=== PATIENT | male | born 1970 | race Caucasian/White ===

== ENCOUNTER 2017-04-03 07:18 | Inpatient (IN) ==
--- NOTE | 2017-04-03 12:13 | Pulmonology History & Physical ---
<Benito Jackson - Last Filed: 04/03/17 15:20> Date of Encounter: 04/03/17 Time of Encounter: 12:13 Assessment and Plan (1) Acute respiratory failure Current visit: No Status: Acute Patient presents with acute respiratory failure secondary to CHF exacerbation with pneumonia Currently ventilator dependent with a tracheostomy ER in [place] mentioned that his O2 on arrival was 89% ABG performed at [place] showed pH 7.28, pCO2 85, pO2 390, HCO3 26 Patient received 40 IV Lasix in the ER and was transferred to [facility] ICU Plan: Repeat ABG ordered Continue ventilator support and decreased FiO2 to 50% IV Vancomycin and Cefepime with bronchodilators for now Discharge planning: Patient is a resident at [facility] would like to return when medically stable. Patient is a full code. Consulted social work. Qualifiers: Respiratory failure complication: hypoxia and hypercapnia Qualified Code(s) : J96.01 - Acute respiratory failure with hypoxia; J96.02 - Acute respiratory failure with hypercapnia; J96.02 - Acute respiratory failure with hypercapnia; J96.02 - Acute respiratory failure with hypercapnia (2) Acute systolic (congestive) heart failure Current visit: Yes Status: Acute History of systolic congestive heart failure Patient reports recent echocardiogram at [facility] - requesting records 2+ pitting edema Denies any PND but does have some orthopnea BNP 3494 Chest x-ray demonstrates diffuse pulmonary edema with small left pleural effusion Plan: Head of bed elevated Elevate legs daily Strict I&O's Daily weights Summary home dose of Lasix 40 mg G-tube twice a day Continued Coreg and will add Zestril Allergy to aspirin Pending nephrology consultation we will discontinue Lasix if he can undergo hemodialysis here Fluid restriction - nutrition consulted for G-tube feedings (3) Pneumonia Current visit: Yes Status: Acute Chest x-ray demonstrating diffuse pulmonary edema with small left pleural effusion versus infiltrative process Flu negative Blood cultures sent Respiratory panel sent We will start broad coverage with vancomycin and cefepime for Pseudomonas coverage with patient being on the ventilator, bronchodilators and ventilator support. Qualifiers: Pneumonia type: due to unspecified organism Laterality: left Lung location: lower lobe of lung Qualified Code(s): J18.1 - Lobar pneumonia, unspecified organism (4) End stage renal disease on dialysis Current visit: Yes Status: Acute Patient does have a HD port on his left upper extremity Does not recall his previous etl consultant or his last hemodialysis No current schedule Creatinine bumped up to 2.51 which is above his baseline of roughly 1.5 to 1.7 Potassium 6.3 Plt 23, tranfusing 6 units platelets today Consult to nephrology here for hemodialysis during his admission (5) Acute kidney injury superimposed on chronic kidney disease Current visit: Yes Status: Acute Consult to nephrology for hemodialysis (6) Hyperkalemia Current visit: No Status: Acute Potassium of 6.3 on arrival to [place] today Patient did receive D50, insulin, sodium bicarbonate, calcium chloride, and Kayexalate prior to transfer to the ICU Rechecking CMP now and will determine if more Kayexalate is required (7) Tracheostomy dependence Current visit: Yes Status: Acute Unclear etiology and history of tracheostomy placement roughly 3 months ago History of AML per patient but has now received treatments for quite some time Requested records from [facility] (8) COPD (chronic obstructive pulmonary disease) Current visit: Yes Status: Acute Patient has been ventilator dependent this tracheostomy for the last 3 months Does not appear to be in acute exacerbation Duonebs Adding symbicort Qualifiers: COPD type: unspecified COPD Qualified Code(s): J44.9 - Chronic obstructive pulmonary disease, unspecified (9) T2DM (type 2 diabetes mellitus) Current visit: Yes Status: Acute Long-term use of insulin We will begin low-dose sliding scale 3 times a day and at bedtime for coverage We will adjust accordingly Qualifiers: Diabetes mellitus complication status: with circulatory complication Diabetes mellitus complication detail: with peripheral angiopathy without gangrene Diabetes mellitus fdc insulin use: with terminal press operator use Qualified Code(s): E11.51 - Type 2 diabetes mellitus with diabetic peripheral angiopathy without gangrene; Z79.4 - residential (current) use of insulin; Z79.4 - residential (current) use of insulin; Z79.4 - residential (current) use of insulin ; Z79.4 - residential (current) use of insulin (10) HLD (hyperlipidemia) Current visit: Yes Status: Acute Restart statin therapy Qualifiers: Hyperlipidemia type: unspecified Qualified Code(s): E78.5 - Hyperlipidemia , unspecified (11) HTN (hypertension) Current visit: Yes Status: Acute Blood pressure is 146/84 Currently only on Coreg Adding low-dose Zestril Qualifiers: Hypertension type: unspecified Qualified Code(s): I10 - Essential (primary ) hypertension (12) Anxiety Current visit: Yes Status: Acute Chronic Stable this time Restart home medication (13) AML (acute myeloid leukemia) Current visit: Yes Status: Acute Remote history of AML status post bone marrow transplant with unknown chemotherapy/radiation therapy Obtain records Qualifiers: Leukemia Active/Remission status: in remission Qualified Code(s): C92.01 - Acute myeloblastic leukemia, in remission; C92.61 - Acute myeloid leukemia with [id number] in remission; C92.A1 - Acute myeloid leukemia with multilineage dysplasia, in remission (14) Hypothyroidism Current visit: Yes Status: Acute Restarted on Synthroid Checking TSH, T3, T4 Qualifiers: Hypothyroidism type: acquired Qualified Code(s): E03.9 - Hypothyroidism, unspecified (15) Sacral decubitus ulcer, stage II Current visit: Yes Status: Acute 2x2cm Daily wound care q2 hour turns (16) Pressure ulcer of back Current visit: Yes Status: Acute 3x4 cm Daily wound care Q2 hour turns Qualifiers: Pressure ulcer stage: stage 2 Qualified Code(s): L89.102 - Pressure ulcer of unspecified part of back, stage 2 (17) DVT prophylaxis Current visit: Yes Status: Acute Heparin subcutaneous 5000 units every 8 hours History of Present Illness HPI: Mr. Brian is a very pleasant 46 year old male with past medical history of tracheostomy with ventilator dependence, systolic congestive heart failure, hypertension, hyperlipidemia, COPD, ESRD on hemodialysis, insulin-dependent type 2 diabetes mellitus, AML, anxiety and hypothyroidism who presents to the [facility] care unit as a direct admission from [facility] emergency department. Patient is a senior living resident at [facility] and has been bedbound for roughly 3 years. Unclear etiology of his tracheostomy placement roughly 3 months ago and has been ventilator dependent since then. Emergency department at [place] reports that he was recently discharged from [facility] and was found to be hypoxic at the senior living was brought in for further evaluation. On arrival, vital signs are stable and oxygen on pulse oximetry was 97%. Initial workup demonstrates leukocytosis of 19.1, hemoglobin 8.4, potassium 6.3, creatinine 2.51 and BNP 3494. Troponin 0.06. Initial ABG demonstrates pH 7.28, pCO2 55, pO2 390, HCO3 26. Chest x- ray demonstrates diffuse pulmonary edema with small left pleural effusion versus infiltrative process. This case was discussed with the emergency room physician and patient received D50, insulin, sodium bicarbonate, calcium chloride and Kayexalate and was subsequently transferred to the [facility] intensive care unit for further evaluation and treatment. Patient was admitted via the pulmonary/critical care team for acute respiratory failure secondary to CHF exacerbation and likely pneumonia. On evaluation, patient is in no acute distress, alert and oriented 3 and is hemodynamically stable. Diffuse crackles heard bilaterally with 2+ pitting edema. Patient is able to speak softly regarding his medical history but is unclear about his recent tracheostomy and leukemia history. He states that his breathing has improved but still is short of breath. Patient was on to state that he has been eating by mouth at the senior living but unclear diet. Nutrition will be consulted for G-tube feedings and speech for possible evaluation. We will continue providing ventilator support, initiate IV vancomycin and cefepime along with bronchodilators. Restarting home medications and will consult nephrology for hemodialysis. Records were requested from [facility]. Prior to admission he had pressure ulcers about his right lower back and coccyx. Patient is high risk and we will continue to monitor throughout the day. Past Med Surg Social Fam HX - Past Medical History Medical history: arthritis, CHF, COPD, diabetes, dialysis, hyperlipidemia, hypertension, renal disease, other Psychiatric history: anxiety - Past Surgical History Surgical History: hip replacement, tracheostomy - Social History Smoking Status: Former smoker Smokeless Tobacco Status: No Alcohol use: none Drug use: none - Family History Mother Living Status: Still Living Father Living Status: Still Living Medications and Allergies Acetaminophen [Tylenol 325mg SUPP] 325 mg RC Q6H PRN 04/03/17 [History] Albuterol Neb [Proventil Neb] 2.5 mg IH Q4H PRN 04/03/17 [History] Azithromycin [Zithromax] 250 mg GTUBE MOWEFR 04/03/17 [History] Bisacodyl [Dulcolax] 10 mg RC HS PRN 04/03/17 [History] Calcitriol 0.5 mcg GTUBE FR 04/03/17 [History] Carvedilol [Coreg] 6.25 mg GTUBE BIDWM 04/03/17 [History] DULoxetine [Cymbalta] 20 mg GTUBE DAILY 04/03/17 [History] Dapsone 100 mg GTUBE DAILY 04/03/17 [History] Diphenhydramine HCl [Restfully Sleep] 12.5 mg GTUBE Q6H PRN 04/03/17 [History] Docusate [Colace] 100 mg GTUBE DAILY PRN 04/03/17 [History] Esomeprazole Magnesium [Nexium] 40 mg GTUBE DAILY 04/03/17 [History] Folic Acid/Vit Bcomp,C [Renal-Kenyon Tablet] 0.8 mg GTUBE DAILY 04/03/17 [History] Furosemide [Lasix] 80 mg GTUBE BID 04/03/17 [History] Hydrophilic Wound Dress Paste 1 appl TP BID 04/03/17 [History] Insulin Regular Human [HumuLIN R] 1 - 5 unit SQ TIDAC 04/03/17 [History] LORazepam [Ativan] 0.5 mg PO Q6H PRN 04/03/17 [History] Levothyroxine [Synthroid] 88 mcg GTUBE 0630 04/03/17 [History] Midodrine HCl 10 mg GTUBE TID 04/03/17 [History] Mirtazapine [Remeron] 30 mg GTUBE HS 04/03/17 [History] Ondansetron HCl [Zofran] 4 mg GTUBE Q4H PRN 04/03/17 [History] Oxycodone HCl 15 mg GTUBE Q4H PRN 04/03/17 [History] Polyethylene Glycol [Polyox Wsr-301] 17 gm GTUBE DAILY PRN 04/03/17 [History] Polyvinyl Alcohol [Artificial Tears] 1 drop BOTH EYES Q4H PRN 04/03/17 [History] Posaconazole [Noxafil] 200 mg GTUBE Q8H 04/03/17 [History] PredniSONE [Deltasone] 30 mg GTUBE DAILY 04/03/17 [History] Sennosides [Senna] 17.2 mg GTUBE BID 04/03/17 [History] Sodium Chloride for inhalation [Hyper-Jorge] 4 ml IH Q4H PRN 04/03/17 [History] Zinc Oxide/Petrolatum, Yellow [Critic-Aid Skin Paste] 1 appl TP BID 04/03/17 [ History] valACYclovir [Valtrex] 500 mg GTUBE DAILY 04/03/17 [History] 3 Allergy/AdvReac Type Severity Reaction Status Date / Time Amoxicillin Allergy Hives Verified 03/09/17 14:44 aspirin Allergy Hives Verified 03/09/17 14:44 All Systems: A 10-system review of systems was performed and is negative for pertinent findings except as documented above in the HPI. - Constitutional Constitutional: as per HPI - EENT Eyes: as per HPI - Cardiovascular Cardiovascular: no chest pain - Respiratory Respiratory: dyspnea - Gastrointestinal Gastrointestinal: no abdominal pain - Genitourinary Genitourinary: no dysuria - Musculoskeletal Musculoskeletal: weakness - Endocrine Endocrine: fatigue Physical Examination Vital Signs: Vital Signs, Last 4 Hours Temp Pulse Resp BP Pulse Ox 04/03/17 12:07 99 04/03/17 11:50 84 20 146/84 99 04/03/17 11:38 97.8 F 87 22 148/81 100 04/03/17 11:10 20 92/62 99 General appearance: no acute distress (Tracheostomy present with ventilator support) Eyes: nonicteric ENT: oropharynx dry Neck: supple Effort: normal Inspection: normal Auscultation: bilateral: wheezes, rales Cardiovascular: regular rate and rhythm Gastrointestinal: normoactive bowel sounds, non-distended, other (G-tube present ) Integumentary: decubitus ulcer (2 x 2 centimeter pressure ulcer stage II present in the right lower back as well as a 3 x 4 cm sacral decubitus ulcer stage II) Extremities: no cyanosis, pulses normal, edema (2+ pitting edema), other ( Stasis dermatitis bilaterally) Musculoskeletal: no deformities Gait: other (Has not emulated in 2-3 years) normal mental status, non-focal exam mood appropriate, affect normal Results - Laboratory Findings CBC and BMP: 04/03/17 13:13 04/03/17 13:13 <Jose Julian - Last Filed: 04/03/17 18:23> Date of Encounter: 04/03/17 History of Present Illness HPI: Mr. Brian is a 46 year old male All Systems: A 10-system review of systems was performed and is negative for pertinent findings except as documented above in the HPI. Physical Examination Vital Signs: Vital Signs, Last 4 Hours Temp Pulse Resp BP Pulse Ox 04/03/17 17:35 141/91 04/03/17 17:20 139/89 04/03/17 17:05 151/95 04/03/17 17:00 88 14 154/98 100 04/03/17 16:59 16 138/85 100 04/03/17 16:50 142/87 04/03/17 16:35 97.1 F L 18 144/87 04/03/17 16:00 97.8 F 85 14 124/72 97 04/03/17 15:38 87 04/03/17 15:32 17 147/90 99 04/03/17 15:00 97.8 F 83 14 147/90 100 Results - Laboratory Findings CBC and BMP: 04/03/17 13:13 04/03/17 13:13 ABG ABG pH 7.51 pH Units (7.32-7.45) H 04/03/17 13:05 ABG pCO2 30 mmHg (35-45) L 04/03/17 13:05 ABG pO2 186 mmHg (85-104) H 04/03/17 13:05 ABG O2 Saturation 100 % (95-98) H 04/03/17 13:05 PT/INR, D-dimer PT 11.5 Seconds (9.4-12.1) 04/03/17 13:13 Abnormal lab findings: Abnormal lab results WBC 13.5 K/mcL (4.3-11.1) H 04/03/17 13:13 RBC 2.42 M/mcL (4.19-5.50) L 04/03/17 13:13 Hgb 7.6 g/dL (12.9-16.9) L 04/03/17 13:13 Hct 24.8 % (37.5-50.1) L 04/03/17 13:13 MCV 102.5 fL (83.0-100.0) H 04/03/17 13:13 MCHC 30.6 g/dL (31.6-35.5) L 04/03/17 13:13 RDW 22.8 % (11.5-14.5) H 04/03/17 13:13 Plt Count 23 K/mcL (140-400) L* 04/03/17 13:13 Neutrophils # 11.6 K/mcL (1.6-8.9) H 04/03/17 13:13 Nucleated RBCs/100 WBC 5.3 /100 WBC (0) H 04/03/17 13:13 Immature Plt Fraction 16.2 % (1.1-6.1) H 04/03/17 13:13 ABG pH 7.51 pH Units (7.32-7.45) H 04/03/17 13:05 ABG pCO2 30 mmHg (35-45) L 04/03/17 13:05 ABG pO2 186 mmHg (85-104) H 04/03/17 13:05 ABG O2 Saturation 100 % (95-98) H 04/03/17 13:05 BUN 40 mg/dL (6-20) H 04/03/17 13:13 Creatinine 2.52 mg/dL (0.70-1.30) H 04/03/17 13:13 Est GFR ( Amer) 34 (> 60) L 04/03/17 13:13 Est GFR (Non-Af Amer) 28 (> 60) L 04/03/17 13:13 Glucose 258 mg/dL (70-105) H 04/03/17 13:13 Calculated Osmolality 301 (280-300) H 04/03/17 13:13 Alkaline Phosphatase 268 Units/L (34-104) H 04/03/17 13:13 Serum Total Protein 4.9 g/dL (6.4-8.9) L 04/03/17 13:13 Albumin 2.8 g/dL (3.5-5.7) L 04/03/17 13:13 Globulin 2.1 g/dL (2.4-3.5) L 04/03/17 13:13 - Attending Attestation I examined this patient and my medical decision-making was reviewed with the Resident Physician. I agree with the documented findings, disposition and treatment plan as described except to the extent set forth below. Patient seen and examined. Labs, radiology, chart personally reviewed. Agree with resident's history and physical, assessment, plan with following comments: [employer]: Patient follows commands, however patient is lethargic and this could be multifactorial metabolic versus medication side effects. Patient will have hemodialysis. Pulmonary: Patient has chronic tracheostomy and overall the patient is a poor historian and not clear whether he is on then told that time, however he stated him on spontaneous breathing trial with pressure support, however patient has apnea. Follow-up ABG was done with evidence of respiratory alkalosis and for that reason I have changed his vent setting and vent mode. Patient will be treated with broad-spectrum antibiotics. Cardiovascular: Relatively stable. GI: Nutrition per dietary and GI prophylaxis per routine Heme: DVT prophylaxis per routine. Patient has thrombocytopenia and will plan for transfusion. ID: Continue antibiotics and plan to de-escalation Renal; discussed with nephrology and patient have hemodialysis. Endorcine: blood glucose is monitored Lines: all lines checked and no evidence of infections Skin: skin care to prevent pressure ulcers per nursing routine care. Patient has presented on admission with decubitus. Nursing staff will measure and documented. I spent 40 min of Critical Care time with this patient. It involved decision making of high complexity to assess, manipulate, and support vital organ system failure and/or to prevent further life threatening deterioration of the patient' s condition. The time involved in the performance of separately reportable procedures was not counted toward critical care time.
[2017-04-03] MEDS ORDERED: Naloxone 0.4 MG/ML INJ IVP PRN (12:58)
[2017-04-03] MEDS ORDERED: Acetaminophen 325 MG TABLET PO PRN (12:58)
[2017-04-03 13:10] LABS: ABG Base Excess 1 mEq/L (-2 to 3); ABG HCO3 24 mEq/L (21-27); ABG Oxygen Saturation 100 % (95-98); ABG PCO2 30 mmHg (35-45); ABG PH 7.51 pH Units (7.32-7.45); ABG PO2 186 mmHg (85-104); ABG TCO2 24 mEq/L (20-26); Blood Gas Modality ASSIST CONTROL; Blood Gas PEEP 5 cm H2O; Blood Gas Respiration Rate 20; Blood Gas VT 600 cc
[2017-04-03] MEDS ORDERED: *HR* LORazepam 0.5 MG TABLET GTUBE PRN (13:11)
[2017-04-03] MEDS ORDERED: Bisacodyl 10 MG RECTAL SUPPOSITORY RC PRN (13:11)
[2017-04-03 13:21] LABS: Basophils % 0.1 %; Hematocrit 24.8 % (37.5-50.1); Nucleated Red Blood Cells 5.3 /100 WBC (0)
[2017-04-03 13:22] LABS: Hemoglobin 7.6 g/dL (12.9-16.9); Immature Granulocytes % 3.2 % (0-4); Immature Platelets 16.2 % (1.1-6.1); Lymphocytes # 0.7 K/mcL (0.6-4.6); Lymphocytes % 4.9 %; Mean Corpuscular HGB Conc 30.6 g/dL (31.6-35.5); Mean Corpuscular Hemoglobin 31.4 pg (28.0-33.3); Mean Corpuscular Volume 102.5 fL (83.0-100.0); Monocytes # 0.8 K/mcL (0.0-1.3); Monocytes % 6.2 %; Neutrophils # 11.6 K/mcL (1.6-8.9); Red Blood Count 2.42 M/mcL (4.19-5.50); Red Cell Distribution Width 22.8 % (11.5-14.5); Segmented Neutrophils % 85.6 %
[2017-04-03 13:25] LABS: INR 1.1; Prothrombin Time 11.5 Seconds (9.4-12.1)
[2017-04-03 13:29] LABS: Platelet Count 23 K/mcL (140-400)
[2017-04-03] MEDS ORDERED: Dextrose Gel 15 GM/37.5 ML TUBE PO PRN ×2 (13:39)
[2017-04-03] MEDS ORDERED: *HR* Dextrose 50 % in Water (Syg) 50 ML SYRINGE IVP PRN (13:39)
[2017-04-03] MEDS ORDERED: D5% in Water 1,000 ML IVC PRN (13:39)
[2017-04-03] MEDS ORDERED: Vancomycin 1,500 MG in D5% in Water 250 ML IVPB SCH ×2 (14:00)
[2017-04-03 14:13] LABS: Albumin 2.8 g/dL (3.5-5.7); Albumin/Globulin Ratio 1.3 (1.1-2.2); Bilirubin,Total 0.8 mg/dL (0.3-1.0); Calcium 8.8 mg/dL (8.6-10.3); Globulin 2.1 g/dL (2.4-3.5); Magnesium 1.7 mg/dL (1.6-2.6); Phosphorous 3.4 mg/dL (2.7-4.5); Total Protein 4.9 g/dL (6.4-8.9)
[2017-04-03] MEDS ORDERED: *HR* Heparin 10,000 UNIT/10 ML VIAL IV PRN ×2 (14:18→14:46)
[2017-04-03] MEDS ORDERED: 0.9 % Sodium Chloride 250 ML IVC PRN ×2 (14:18→14:46)
[2017-04-03] MEDS ORDERED: 0.9 % Sodium Chloride 1,000 ML PRIME SCH ×2 (14:30→15:00)
[2017-04-03] MEDS: Budesonide/Formoterol 160/4.5 MDI IH SCH ×2 (14:31→22:37)
[2017-04-03] MEDS: Ipratropium/Albuterol Neb 3 ML IH SCH ×3 (14:32→22:36)
[2017-04-03 15:08] LABS: Hemoglobin A1C 5.3 %
[2017-04-03] MEDS: Insulin LISPRO 300 UNITS/3 ML VIAL SQ SCH (15:19)
[2017-04-03] MEDS ORDERED: 0.9 % Sodium Chloride 1,000 ML ONE (16:08)
[2017-04-03 16:19] LABS: Hepatitis B Surface Antigen Nonreactive (Nonreactive)
[2017-04-03] MEDS ORDERED: Cefepime HCl 2,000 MG in D5% in Water (Mini-Bag+) 100 ML IVPB SCH (18:00)
[2017-04-03 19:17] LABS: Thyroid Stimulating Hormone 1.531 mcIU/mL (0.340-5.600)
[2017-04-03 19:19] LABS: Triiodothyronine (T3) Free 1.5 pg/mL (2.50-3.90)
[2017-04-03] MEDS: Furosemide 40 MG TABLET PO SCH (20:15)
[2017-04-03] MEDS: Chlorhexidine Rinse 15 ML MOUTHWASH MM SCH (20:16)
[2017-04-03] MEDS: Cefepime HCl 2,000 MG in Water for inj. (sterile) 20 ML 20 ML IVP SCH (20:16)
[2017-04-03] MEDS: *HR* Heparin 5,000 UNIT/ML VIAL SQ SCH ×2 (20:17→21:43)
[2017-04-03] MEDS: *HR* OxyCODONE Immed Rel 15 MG TABLET GTUBE PRN (20:22)
[2017-04-03] MEDS: Renal Vitamin 1 MG CAPSULE PO SCH (20:32)
[2017-04-03] MEDS: Pantoprazole 40 MG VIAL IVP SCH (20:32)
[2017-04-03] MEDS ORDERED: Mirtazapine 15 MG TABLET GTUBE SCH (21:00)
[2017-04-03] MEDS ORDERED: Insulin LISPRO 300 UNITS/3 ML VIAL SQ SCH (21:00)
[2017-04-03] MEDS ORDERED: 0.9 % Sodium Chloride 250 ML ONE (21:18)
[2017-04-04] MEDS: *HR* OxyCODONE Immed Rel 15 MG TABLET GTUBE PRN ×6 (00:40→20:32)
[2017-04-04 02:21] LABS: Hepatitis B Surface Antibody 26.47 mIU/mL
[2017-04-04] MEDS: Ipratropium/Albuterol Neb 3 ML IH SCH ×4 (03:37→22:29)
[2017-04-04 04:09] LABS: Hematocrit 21.6 % (37.5-50.1); Hemoglobin 6.7 g/dL (12.9-16.9); Segmented Neutrophils % 73.9 %
[2017-04-04 04:11] LABS: Basophils % 0.2 %; Eosinophils % 0.3 %; Immature Granulocytes % 2.4 % (0-4); Immature Platelets 10.3 % (1.1-6.1); Lymphocytes # 1.2 K/mcL (0.6-4.6); Lymphocytes % 11.7 %; Mean Corpuscular Hemoglobin 32.4 pg (28.0-33.3); Mean Corpuscular Volume 104.3 fL (83.0-100.0); Mean Platelet Volume 11.2 fL (9.4-12.4); Monocytes # 1.2 K/mcL (0.0-1.3); Monocytes % 11.5 %; Neutrophils # 7.8 K/mcL (1.6-8.9); Nucleated Red Blood Cells 4.7 /100 WBC (0); Red Blood Count 2.07 M/mcL (4.19-5.50); Red Cell Distribution Width 22.9 % (11.5-14.5)
[2017-04-04 04:21] LABS: Platelet Count 40 K/mcL (140-400)
[2017-04-04 04:50] LABS: Calcium 8.1 mg/dL (8.6-10.3); Potassium 3.6 mEq/L (3.5-5.1)
[2017-04-04 04:55] LABS: Hypochromasia Present (Not Present); Macrocytosis Present (Not Present)
[2017-04-04 04:56] LABS: Platelet Estimate Decreased (Normal); Polychromasia 1+ (Not Present)
[2017-04-04 04:57] LABS: Acanthocytes 1+ (Not Present); Anisocytosis 2+ (Not Present); Spherocytes 1+ (Not Present); Target Cells 1+ (Not Present)
[2017-04-04 04:58] LABS: Microcytosis Present (Not Present)
[2017-04-04 05:19] LABS: Adenovirus Not Detected (Not Detect); Bordetella Pertussis Not Detected (Not Detect); Chlamydophila pneumoniae Not Detected (Not Detect); Coronavirus 229E Not Detected (Not Detect); Coronavirus HKU1 Not Detected (Not Detect); Coronavirus NL63 Not Detected (Not Detect); Coronavirus OC43 Not Detected (Not Detect); Human Metapneumovirus Not Detected (Not Detect); Human Rhinovirus/Enterovirus ***DETECTED*** (Not Detect); Influenza A Subtype 2009 H1 Not Detected (Not Detect); Influenza A Untypeable Not Detected (Not Detect); Influenza B Not Detected (Not Detect); Mycoplasma pneumoniae Not Detected (Not Detect); Parainfluenza Virus 1 Not Detected (Not Detect); Parainfluenza Virus 2 Not Detected (Not Detect); Parainfluenza Virus 3 Not Detected (Not Detect); Parainfluenza Virus 4 Not Detected (Not Detect); Respiratory Syncytial Virus Not Detected (Not Detect)
[2017-04-04] MEDS: Cefepime HCl 2,000 MG in Water for inj. (sterile) 20 ML 20 ML IVP SCH (05:29)
[2017-04-04] MEDS: *HR* Heparin 5,000 UNIT/ML VIAL SQ SCH (05:30)
--- NOTE | 2017-04-04 06:46 | Pulmonology Progress Note ---
<Benito Jackson - Last Filed: 04/04/17 11:26> Date of Encounter: 04/04/17 Time of Encounter: 09:35 Assessment and Plan (1) Acute respiratory failure Current Visit: No Status: Acute Patient presents with acute respiratory failure secondary to CHF exacerbation with pneumonia Currently ventilator dependent with a tracheostomy ER in [place] mentioned that his O2 on arrival was 89% ABG performed at [place] showed pH 7.28, pCO2 85, pO2 390, HCO3 26 ABG on arrival pH 7.51, pCO2 30, pO2 186, HCO3 24 Patient received 40 IV Lasix in the ER and was transferred to [facility] ICU Plan: Repeat ABG ordered this morning Continue ventilator support D/c IV Vancomycin for renal protection Continue Cefepime with bronchodilators for now Discharge planning: Patient is a resident at [facility] would like to return when medically stable. Patient is a full code. Consulted social work. Transfer order placed today for 2N bed pending availability Qualifiers: Respiratory failure complication: hypoxia and hypercapnia Qualified Code(s) : J96.01 - Acute respiratory failure with hypoxia; J96.02 - Acute respiratory failure with hypercapnia; J96.02 - Acute respiratory failure with hypercapnia; J96.02 - Acute respiratory failure with hypercapnia (2) Acute systolic (congestive) heart failure Current Visit: Yes Status: Acute History of systolic congestive heart failure Patient reports recent echocardiogram at [facility] - requesting records 2+ pitting edema Denies any PND but does have some orthopnea BNP [id number] Chest x-ray demonstrates diffuse pulmonary edema with small left pleural effusion Plan: Head of bed elevated Elevate legs daily Strict I&O's Daily weights Summary home dose of Lasix 40 mg G-tube twice a day Continued Coreg and will add Zestril Allergy to aspirin Underwent HD yesterday Fluid restriction (3) Pneumonia Current Visit: Yes Status: Acute Chest x-ray demonstrating diffuse pulmonary edema with small left pleural effusion versus infiltrative process Flu negative Blood cultures sent Respiratory panel positive for rhinovirus We will start broad coverage cefepime only for Pseudomonas coverage with patient being on the ventilator, bronchodilators and ventilator support. 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 Up to 40 today Nephro following for hemodialysis D/c rimmao (5) Acute kidney injury superimposed on chronic kidney disease Current Visit: Yes Status: Acute Consult to nephrology for hemodialysis Patient had HD yesterday Creatinine trending down from 2.52-1.66 (6) Hyperkalemia Current Visit: No Status: Acute Potassium of 6.3 on arrival to [place] today Patient did receive D50, insulin, sodium bicarbonate, calcium chloride, and Kayexalate prior to transfer to the ICU Patient underwent hemodialysis yesterday Potassium down to 3.6 (7) Tracheostomy dependence Current Visit: Yes Status: Acute Unclear etiology and history of tracheostomy placement roughly 3 months ago History of AML per patient but has now received treatments for quite some time Requested records from [facility] (8) COPD (chronic obstructive pulmonary disease) Current Visit: Yes Status: Acute Patient has been ventilator dependent this tracheostomy for the last 3 months Does not appear to be in acute exacerbation [facility] Qualifiers: COPD type: unspecified COPD Qualified Code(s): J44.9 - Chronic obstructive pulmonary disease, unspecified (9) T2DM (type 2 diabetes mellitus) Current Visit: Yes Status: Acute Long-term use of insulin Blood sugars improving We will continue low-dose sliding scale 3 times a day and at bedtime for coverage We will adjust accordingly Qualifiers: Diabetes mellitus complication status: with circulatory complication Diabetes mellitus complication detail: with peripheral angiopathy without gangrene Diabetes mellitus long-term insulin use: with joint terminal attack controller use Qualified Code(s): E11.51 - Type 2 diabetes mellitus with diabetic peripheral angiopathy without gangrene; Z79.4 - truck terminal manager (current) use of insulin; Z79.4 - alf (current) use of insulin; Z79.4 - truck terminal manager (current) use of insulin ; Z79.4 - alf (current) use of insulin (10) HLD (hyperlipidemia) Current Visit: Yes Status: Acute Restart statin therapy Qualifiers: Hyperlipidemia type: unspecified Qualified Code(s): E78.5 - Hyperlipidemia , unspecified (11) HTN (hypertension) Current Visit: Yes Status: Acute Blood pressure is 146/84 Currently only on Coreg Adding low-dose Zestril Qualifiers: Hypertension type: unspecified Qualified Code(s): I10 - Essential (primary ) hypertension (12) Anxiety Current Visit: Yes Status: Acute Chronic Stable this time Restart home medication (13) AML (acute myeloid leukemia) Current Visit: Yes Status: Acute Remote history of AML status post bone marrow transplant with unknown chemotherapy/radiation therapy Obtain records Hemoglobin trending down to 6.7 but is at baseline. We will continue to trend. Qualifiers: Leukemia Active/Remission status: in remission Qualified Code(s): C92.01 - Acute myeloblastic leukemia, in remission; C92.61 - Acute myeloid leukemia with [id number] in remission; C92.A1 - Acute myeloid leukemia with multilineage dysplasia, in remission (14) Hypothyroidism Current Visit: Yes Status: Acute Restarted on Synthroid Checking TSH, T3, T4 Qualifiers: Hypothyroidism type: acquired Qualified Code(s): E03.9 - Hypothyroidism, unspecified (15) Sacral decubitus ulcer, stage II Current Visit: Yes Status: Acute 2x2cm Daily wound care q2 hour turns (16) Pressure ulcer of back Current Visit: Yes Status: Acute 3x4 cm Daily wound care Q2 hour turns Qualifiers: Pressure ulcer stage: stage 2 Qualified Code(s): L89.102 - Pressure ulcer of unspecified part of back, stage 2 (17) DVT prophylaxis Current Visit: Yes Status: Acute EPCDs Subjective Interval history: Patient is admitted for acute respiratory failure secondary to CHF exacerbation with pneumonia Patient is resting comfortable this morning He reports that his shortness of breath is significant improved since yesterday No overnight events per nursing Speech cleared patient for diet on evaluation this morning He denies any chest pain, palpitations, abdominal pain, GI issues or tracheostomy issues. Objective PUL Vital signs: Last Vital Signs Temp 97.2 F L 04/04/17 05:14 Pulse 110 04/04/17 06:00 Resp 24 04/04/17 06:00 BP 124/59 04/04/17 06:00 Pulse Ox 100 04/04/17 06:00 General appearance: no acute distress Eyes: nonicteric ENT: oropharynx moist Neck: supple Auscultation: bilateral: wheezes, rales Cardiovascular: regular rate and rhythm Gastrointestinal: normoactive bowel sounds, non-distended, other (G-tube present and intact) Integumentary: decubitus ulcer (2 x 2 centimeter pressure ulcer stage II present in the right lower back as well as a 3 x 4 cm sacral decubitus ulcer stage II) Extremities: no cyanosis, edema (2+ pitting), other (Stasis dermatitis bilaterally) Musculoskeletal: no deformities Gait: other (Has not ambulated in 2-3 years) normal mental status, non-focal exam mood appropriate, affect normal Ventilator Settings Ventilator Settings: Ventilator Settings, Last 8 Hours Ventilator Mode VC+ Ventilator Mode VC+ Ventilator Mode VC+ Ventilator Mode VC+ Ventilator Mode VC+ Ventilator Mode VC+ Ventilator Mode VC+ Ventilator Mode VC+ Ventilator Mode VC+ Ventilator Mode VC+ Ventilator Tidal Volume 550 Setting Ventilator Tidal Volume 550 Setting Ventilator Tidal Volume 550 Setting Ventilator Tidal Volume 550 Setting Ventilator Tidal Volume 550 Setting Ventilator Tidal Volume 550 Setting Ventilator Tidal Volume 550 Setting Ventilator Tidal Volume 550 Setting Ventilator Tidal Volume 550 Setting Ventilator Tidal Volume 550 Setting Ventilator Respiratory Rate 14 Setting Ventilator Respiratory Rate 14 Setting Ventilator Respiratory Rate 14 Setting Ventilator Respiratory Rate 14 Setting Ventilator Respiratory Rate 14 Setting Ventilator Respiratory Rate 14 Setting Ventilator Respiratory Rate 14 Setting Ventilator Respiratory Rate 14 Setting Ventilator Respiratory Rate 14 Setting Ventilator Respiratory Rate 14 Setting Actual Respiratory Rate 24 Actual Respiratory Rate 21 Actual Respiratory Rate 18 Actual Respiratory Rate 17 Actual Respiratory Rate 17 Actual Respiratory Rate 19 Actual Respiratory Rate 17 Actual Respiratory Rate 20 Actual Respiratory Rate 21 Actual Respiratory Rate 21 Positive End Expiratory 5 Pressure Positive End Expiratory 5 Pressure Positive End Expiratory 5 Pressure Positive End Expiratory 5 Pressure Positive End Expiratory 5 Pressure Positive End Expiratory 5 Pressure Positive End Expiratory 5 Pressure Positive End Expiratory 5 Pressure Positive End Expiratory 5 Pressure Positive End Expiratory 5 Pressure Peak Inspiratory Airway 27 Pressure Peak Inspiratory Airway 28 Pressure Peak Inspiratory Airway 32 Pressure Peak Inspiratory Airway 33 Pressure Peak Inspiratory Airway 33 Pressure Peak Inspiratory Airway 32 Pressure Peak Inspiratory Airway 34 Pressure Peak Inspiratory Airway 32 Pressure Peak Inspiratory Airway 29 Pressure Peak Inspiratory Airway 28 Pressure Results - Laboratory Findings CBC and BMP: 04/04/17 04:02 04/04/17 04:02 ABG ABG pH 7.51 pH Units (7.32-7.45) H 04/03/17 13:05 ABG pCO2 30 mmHg (35-45) L 04/03/17 13:05 ABG pO2 186 mmHg (85-104) H 04/03/17 13:05 ABG O2 Saturation 100 % (95-98) H 04/03/17 13:05 PT/INR, D-dimer PT 11.5 Seconds (9.4-12.1) 04/03/17 13:13 Abnormal lab findings: Abnormal lab results RBC 2.07 M/mcL (4.19-5.50) L 04/04/17 04:02 Hgb 6.7 g/dL (12.9-16.9) L 04/04/17 04:02 Hct 21.6 % (37.5-50.1) L 04/04/17 04:02 MCV 104.3 fL (83.0-100.0) H 04/04/17 04:02 MCHC 31.0 g/dL (31.6-35.5) L 04/04/17 04:02 RDW 22.9 % (11.5-14.5) H 04/04/17 04:02 Plt Count 40 K/mcL (140-400) L D 04/04/17 04:02 Nucleated RBCs/100 WBC 4.7 /100 WBC (0) H 04/04/17 04:02 Platelet Estimate Decreased (Normal) L 04/04/17 04:02 Immature Plt Fraction 10.3 % (1.1-6.1) H 04/04/17 04:02 Polychromasia 1+ (Not Present) A 04/04/17 04:02 Hypochromasia Present (Not Present) A 04/04/17 04:02 Anisocytosis 2+ (Not Present) A 04/04/17 04:02 Microcytosis Present (Not Present) A 04/04/17 04:02 Macrocytosis Present (Not Present) A 04/04/17 04:02 Spherocytes 1+ (Not Present) A 04/04/17 04:02 Target Cells 1+ (Not Present) A 04/04/17 04:02 Acanthocytes (Spur) 1+ (Not Present) A 04/04/17 04:02 ABG pH 7.51 pH Units (7.32-7.45) H 04/03/17 13:05 ABG pCO2 30 mmHg (35-45) L 04/03/17 13:05 ABG pO2 186 mmHg (85-104) H 04/03/17 13:05 ABG O2 Saturation 100 % (95-98) H 04/03/17 13:05 BUN 26 mg/dL (6-20) H 04/04/17 04:02 Creatinine 1.66 mg/dL (0.70-1.30) H 04/04/17 04:02 Est GFR ( Amer) 54 (> 60) L 04/04/17 04:02 Est GFR (Non-Af Amer) 45 (> 60) L 04/04/17 04:02 Glucose 110 mg/dL (70-105) H 04/04/17 04:02 POC Glucose 131 (58-89) H 04/03/17 19:38 Calcium 8.1 mg/dL (8.6-10.3) L 04/04/17 04:02 Alkaline Phosphatase 268 Units/L (34-104) H 04/03/17 13:13 Serum Total Protein 4.9 g/dL (6.4-8.9) L 04/03/17 13:13 Albumin 2.8 g/dL (3.5-5.7) L 04/03/17 13:13 Globulin 2.1 g/dL (2.4-3.5) L 04/03/17 13:13 Free T3 1.50 pg/mL (2.50-3.90) L 04/03/17 13:13 Entero/Rhino (PCR) DETECTED (Not Detect) A 04/04/17 04:02 - Clinical Findings Intake & Output: Intake & Output 04/03/17 04/03/17 04/04/17 15:59 23:59 07:59 Intake Total 0 / 0 1174 / 1174 191 / 191 Output Total 3050 / 3050 150 / 150 Balance 0 / 0 -1876 / -1876 41 / 41 Weight 106.594 kg 103.918 kg Consult Discharge Plan - Plan Referrals: Eduard Chapin MD [Primary Care Provider] - <Jose Julian - Last Filed: 04/04/17 15:18> Date of Encounter: 04/04/17 Objective PUL Vital signs: Last Vital Signs Temp 98.7 F 04/04/17 14:18 Pulse 97 04/04/17 14:18 Resp 14 04/04/17 14:18 BP 130/84 04/04/17 14:18 Pulse Ox 100 04/04/17 14:18 Ventilator Settings Ventilator Settings: Ventilator Settings, Last 8 Hours Ventilator Mode VC+ Ventilator Mode VC+ Ventilator Mode VC+ Ventilator Mode VC+ Ventilator Mode VC+ Ventilator Mode VC+ Ventilator Mode VC+ Ventilator Mode VC+ Ventilator Tidal Volume 550 Setting Ventilator Tidal Volume 550 Setting Ventilator Tidal Volume 550 Setting Ventilator Tidal Volume 550 Setting Ventilator Tidal Volume 550 Setting Ventilator Tidal Volume 550 Setting Ventilator Tidal Volume 550 Setting Ventilator Tidal Volume 550 Setting Ventilator Respiratory Rate 14 Setting Ventilator Respiratory Rate 14 Setting Ventilator Respiratory Rate 14 Setting Ventilator Respiratory Rate 14 Setting Ventilator Respiratory Rate 14 Setting Ventilator Respiratory Rate 14 Setting Ventilator Respiratory Rate 14 Setting Ventilator Respiratory Rate 14 Setting Actual Respiratory Rate 19 Actual Respiratory Rate 18 Actual Respiratory Rate 20 Actual Respiratory Rate 20 Actual Respiratory Rate 22 Actual Respiratory Rate 25 Actual Respiratory Rate 22 Positive End Expiratory 5 Pressure Positive End Expiratory 5 Pressure Positive End Expiratory 5 Pressure Positive End Expiratory 5 Pressure Positive End Expiratory 5 Pressure Positive End Expiratory 5 Pressure Positive End Expiratory 5 Pressure Positive End Expiratory 5 Pressure Peak Inspiratory Airway 30 Pressure Peak Inspiratory Airway 33 Pressure Peak Inspiratory Airway 28 Pressure Peak Inspiratory Airway 32 Pressure Peak Inspiratory Airway 32 Pressure Peak Inspiratory Airway 31 Pressure Peak Inspiratory Airway 30 Pressure Results - Laboratory Findings CBC and BMP: 04/04/17 04:02 04/04/17 04:02 ABG ABG pH 7.40 pH Units (7.32-7.45) 04/04/17 10:40 ABG pCO2 52 mmHg (35-45) H 04/04/17 10:40 ABG pO2 87 mmHg (85-104) 04/04/17 10:40 ABG O2 Saturation 96 % (95-98) 04/04/17 10:40 PT/INR, D-dimer PT 11.5 Seconds (9.4-12.1) 04/03/17 13:13 Abnormal lab findings: Abnormal lab results RBC 2.07 M/mcL (4.19-5.50) L 04/04/17 04:02 Hgb 6.7 g/dL (12.9-16.9) L 04/04/17 04:02 Hct 21.6 % (37.5-50.1) L 04/04/17 04:02 MCV 104.3 fL (83.0-100.0) H 04/04/17 04:02 MCHC 31.0 g/dL (31.6-35.5) L 04/04/17 04:02 RDW 22.9 % (11.5-14.5) H 04/04/17 04:02 Plt Count 40 K/mcL (140-400) L D 04/04/17 04:02 Nucleated RBCs/100 WBC 4.7 /100 WBC (0) H 04/04/17 04:02 Platelet Estimate Decreased (Normal) L 04/04/17 04:02 Immature Plt Fraction 10.3 % (1.1-6.1) H 04/04/17 04:02 Polychromasia 1+ (Not Present) A 04/04/17 04:02 Hypochromasia Present (Not Present) A 04/04/17 04:02 Anisocytosis 2+ (Not Present) A 04/04/17 04:02 Microcytosis Present (Not Present) A 04/04/17 04:02 Macrocytosis Present (Not Present) A 04/04/17 04:02 Spherocytes 1+ (Not Present) A 04/04/17 04:02 Target Cells 1+ (Not Present) A 04/04/17 04:02 Acanthocytes (Spur) 1+ (Not Present) A 04/04/17 04:02 ABG pCO2 52 mmHg (35-45) H 04/04/17 10:40 ABG HCO3 32 mEq/L (21-27) H 04/04/17 10:40 ABG Total CO2 33 mEq/L (20-26) H 04/04/17 10:40 ABG Base Excess 6 mEq/L (-2 to 3) H 04/04/17 10:40 BUN 26 mg/dL (6-20) H 04/04/17 04:02 Creatinine 1.66 mg/dL (0.70-1.30) H 04/04/17 04:02 Est GFR ( Amer) 54 (> 60) L 04/04/17 04:02 Est GFR (Non-Af Amer) 45 (> 60) L 04/04/17 04:02 Glucose 110 mg/dL (70-105) H 04/04/17 04:02 POC Glucose 131 (58-89) H 04/03/17 19:38 Calcium 8.1 mg/dL (8.6-10.3) L 04/04/17 04:02 Alkaline Phosphatase 268 Units/L (34-104) H 04/03/17 13:13 Serum Total Protein 4.9 g/dL (6.4-8.9) L 04/03/17 13:13 Albumin 2.8 g/dL (3.5-5.7) L 04/03/17 13:13 Globulin 2.1 g/dL (2.4-3.5) L 04/03/17 13:13 Free T3 1.50 pg/mL (2.50-3.90) L 04/03/17 13:13 Entero/Rhino (PCR) DETECTED (Not Detect) A 04/04/17 04:02 - Microbiology Findings Microbiology Findings: Microbiology, Last 48 Hours 04/04/17 14:00 Sputum Culture - Preliminary Sputum - Clinical Findings Intake & Output: Intake & Output 04/03/17 04/04/17 04/04/17 23:59 07:59 15:59 Intake Total 1174 / 1174 191 / 191 120 / 120 Output Total 3050 / 3050 150 / 150 50 / 50 Balance -1876 / -1876 41 / 41 70 / 70 Weight 103.918 kg 112.151 kg - Attending Attestation I examined this patient and my medical decision-making was reviewed with the Resident Physician. I agree with the documented findings, disposition and treatment plan as described except to the extent set forth below. Patient seen and examined. Labs, radiology, chart personally reviewed. Agree with resident's history and physical, assessment, plan with following comments: BOX TURNER: Patient follows commands, Pulmonary: Acceptable oxygenation and ventilation and continue vent support Cardiovascular: stable GI: Nutrition per dietary and GI prophylaxis per routine patient had speech evaluation and is able to swallow Heme: DVT prophylaxis per routine. The patient has poor prognosis and remain full code. Monitor his platelet and hemoglobin level. ID: Continue antibiotics and plan to de-escalation Renal; nephrology is following Endorcine: blood glucose is monitored Lines: all lines checked and no evidence of infections Skin: skin care to prevent pressure ulcers per nursing routine care Patient has been transferred to [facility]
--- NOTE | 2017-04-04 07:31 | Event Note ---
Date of Encounter: 04/04/17 Time of Encounter: 07:29 [facility] I found this patient on my census list. Per report this is not a patient of [facility]. Please change the consult order and notify the correct , outside nephrology group. ELLIOT
[2017-04-04] MEDS: Renal Vitamin 1 MG CAPSULE PO SCH (08:49)
[2017-04-04] MEDS: Furosemide 40 MG TABLET PO SCH ×2 (08:49→16:13)
[2017-04-04] MEDS: Insulin LISPRO 300 UNITS/3 ML VIAL SQ SCH ×4 (08:50→20:34)
[2017-04-04] MEDS: Pantoprazole 40 MG VIAL IVP SCH (08:50)
[2017-04-04] MEDS: Chlorhexidine Rinse 15 ML MOUTHWASH MM SCH ×2 (09:12→20:28)
[2017-04-04 10:43] LABS: ABG Base Excess 6 mEq/L (-2 to 3); ABG HCO3 32 mEq/L (21-27); ABG Oxygen Saturation 96 % (95-98); ABG PCO2 52 mmHg (35-45); ABG PO2 87 mmHg (85-104); ABG TCO2 33 mEq/L (20-26); Blood Gas Modality VC; Blood Gas PEEP 5 cm H2O; Blood Gas Respiration Rate 14; Blood Gas VT 550 cc
--- NOTE | 2017-04-04 10:51 | Nephrology Consult Note ---
Date of Encounter: 04/04/17 Time of Encounter: 09:40 Assessment and Plan (1) End stage renal disease on dialysis Current Visit: Yes Status: Acute TOVA in setting chronic resp failure and CHF. Thought to possibly regain renal fct. Would discontinue Vanco for other coverage. HD yesterday. No HD today. Will evaluate tomorrow for HD as needed. History of Present Illness - Reason for Consult Acute Kidney Injury, end stage renal disease - History of Present Illness Mr. Brian is a 46 year old male with a history of TOVA requiring chronic HD that dialyzes at [place] on TTS schedule. Other PMH-arthritis, CHF, COPD, diabetes, dialysis, hyperlipidemia, hypertension, renal disease, anxiety, hip replacement, tracheostomy. He is trach/vent dependent following lengthy hospital stay. It was thought that he may recover his renal fct. while obtaining HD at [place]. He has been inpatient at [facility] for one month just prior to hia presenting to [facility] for respiratory failure secondary to CHF and pneumonia. He states has only been receiving HD sporadically, as needed. He is on Vanco and Cefepime coverage. His K+ 6.0 yesterday, he rec'd Kaexylate and HD was done Today K+ 3.6. Past Med Surg Social Fam HX - Past Medical History Medical history: arthritis, CHF, COPD, diabetes, dialysis, hyperlipidemia, hypertension, renal disease, other Psychiatric history: anxiety - Past Surgical History Surgical History: hip replacement, tracheostomy - Social History Smoking Status: Former smoker Smokeless Tobacco Status: No Alcohol use: none Drug use: none - Family History Mother Living Status: Still Living Father Living Status: Still Living Medications and Allergies Acetaminophen [Tylenol 325mg SUPP] 325 mg RC Q6H PRN 04/03/17 [History] Albuterol Neb [Proventil Neb] 2.5 mg IH Q4H PRN 04/03/17 [History] Azithromycin [Zithromax] 250 mg GTUBE MOWEFR 04/03/17 [History] Bisacodyl [Dulcolax] 10 mg RC HS PRN 04/03/17 [History] Calcitriol 0.5 mcg GTUBE FR 04/03/17 [History] Carvedilol [Coreg] 6.25 mg GTUBE BIDWM 04/03/17 [History] DULoxetine [Cymbalta] 20 mg GTUBE DAILY 04/03/17 [History] Dapsone 100 mg GTUBE DAILY 04/03/17 [History] Diphenhydramine HCl [Restfully Sleep] 12.5 mg GTUBE Q6H PRN 04/03/17 [History] Docusate [Colace] 100 mg GTUBE DAILY PRN 04/03/17 [History] Esomeprazole Magnesium [Nexium] 40 mg GTUBE DAILY 04/03/17 [History] Folic Acid/Vit Bcomp,C [Renal-Kenyon Tablet] 0.8 mg GTUBE DAILY 04/03/17 [History] Furosemide [Lasix] 80 mg GTUBE BID 04/03/17 [History] Hydrophilic Wound Dress Paste 1 appl TP BID 04/03/17 [History] Insulin Regular Human [HumuLIN R] 1 - 5 unit SQ TIDAC 04/03/17 [History] LORazepam [Ativan] 0.5 mg PO Q6H PRN 04/03/17 [History] Levothyroxine [Synthroid] 88 mcg GTUBE 0630 04/03/17 [History] Midodrine HCl 10 mg GTUBE TID 04/03/17 [History] Mirtazapine [Remeron] 30 mg GTUBE HS 04/03/17 [History] Ondansetron HCl [Zofran] 4 mg GTUBE Q4H PRN 04/03/17 [History] Oxycodone HCl 15 mg GTUBE Q4H PRN 04/03/17 [History] Polyethylene Glycol [Polyox Wsr-301] 17 gm GTUBE DAILY PRN 04/03/17 [History] Polyvinyl Alcohol [Artificial Tears] 1 drop BOTH EYES Q4H PRN 04/03/17 [History] Posaconazole [Noxafil] 200 mg GTUBE Q8H 04/03/17 [History] PredniSONE [Deltasone] 30 mg GTUBE DAILY 04/03/17 [History] Sennosides [Senna] 17.2 mg GTUBE BID 04/03/17 [History] Sodium Chloride for inhalation [Hyper-Jorge] 4 ml IH Q4H PRN 04/03/17 [History] Zinc Oxide/Petrolatum, Yellow [Critic-Aid Skin Paste] 1 appl TP BID 04/03/17 [ History] valACYclovir [Valtrex] 500 mg GTUBE DAILY 04/03/17 [History] 3 Allergy/AdvReac Type Severity Reaction Status Date / Time Amoxicillin Allergy Hives Verified 03/09/17 14:44 aspirin Allergy Hives Verified 03/09/17 14:44 Review of Systems All Systems: reviewed and no additional remarkable complaints except as stated Exam - Vital Signs Vital signs: Initial Vital Signs Resp BP Pulse Ox 20 92/62 99 04/03/17 11:10 04/03/17 11:10 04/03/17 11:10 Vital Signs - Last 8 Hours Temp Pulse Resp BP Pulse Ox 04/04/17 08:18 98.5 F 04/04/17 07:17 16 119/68 98 04/04/17 06:00 110 24 124/59 100 04/04/17 05:14 97.2 F L 04/04/17 05:00 107 21 136/74 98 04/04/17 04:05 90 04/04/17 04:00 89 18 122/69 98 04/04/17 03:37 17 119/66 96 04/04/17 03:00 79 19 117/66 96 Intake and Output 04/03/17 04/04/17 04/04/17 23:59 07:59 15:59 Intake Total 1174 / 1174 191 / 191 120 / 120 Output Total 3050 / 3050 150 / 150 50 / 50 Balance -1876 / -1876 41 / 41 70 / 70 Intake: IV Fluids 270 / 270 Maxipime 2,000 MG In Water for 20 / 20 inj. (sterile) 20 ML @ 300 mls/ hr IVP Q12HR DARNELL Rx#:[id number] Vancocin 1,500 MG In Dextrose 5 250 / 250 % 250 ML @ 166.67 mls/hr IVPB Q24H DARNE[facility] Rx#:[id number] Oral 0 / 0 120 / 120 Tube Feeding 116 / 116 191 / 191 Blood Product 188 / 188 Platelet Pheresis Lp Irr 3rd 188 / 188 Unit [id number] Intake, Rinseback and Flushes 600 / 600 Free Water Intake Amount 0 / 0 0 / 0 0 / 0 Output: Urine 0 / 0 Total Dialysis (HD) Output 2600 / 2600 Catheter 450 / 450 150 / 150 50 / 50 Other: Weight 103.918 kg Blood Glucose* 131 145 Hemodialysis Net Fluid Removed 2000 (mL) Patient Weight 04/04/17 23:59 Weight 103.918 kg - General Appearance General appearance: well-developed, well-nourished, appears started age, obese EENT: mucous membranes moist Neck: no JVD Additional Comments: harsh Cardiology: edema, regular rate, regular rhythm Additional Comments: 2+ pittingLE and dependent buttock and hips. Gastrointestinal: normoactive bowel sounds, no tenderness Integumentary: warm and dry Neurologic: alert and oriented x3 Psychiatric: mood/affect appropriate, cooperative Results - Lab Results 04/04/17 04:02 04/04/17 04:02 Most recent lab results ABG pH 7.51 pH Units (7.32-7.45) H 04/03/17 13:05 ABG pCO2 30 mmHg (35-45) L 04/03/17 13:05 ABG pO2 186 mmHg (85-104) H 04/03/17 13:05 ABG HCO3 24 mEq/L (21-27) 04/03/17 13:05 ABG O2 Saturation 100 % (95-98) H 04/03/17 13:05 Calcium 8.1 mg/dL (8.6-10.3) L 04/04/17 04:02 Phosphorus 3.4 mg/dL (2.7-4.5) 04/03/17 13:13 Magnesium 1.7 mg/dL (1.6-2.6) 04/03/17 13:13 Consult Discharge Plan - Plan Referrals: Eduard Chapin MD [Primary Care Provider] -
[2017-04-04] MEDS: Budesonide/Formoterol 160/4.5 MDI IH SCH ×2 (11:16→22:29)
[2017-04-04] MEDS ORDERED: D5% in Water 1,000 ML IVC PRN (14:14)
[2017-04-04] MEDS ORDERED: *HR* Heparin 10,000 UNIT/10 ML VIAL IV PRN ×2 (14:14)
[2017-04-04] MEDS ORDERED: *HR* Dextrose 50 % in Water (Syg) 50 ML SYRINGE IVP PRN (14:14)
[2017-04-04] MEDS ORDERED: Dextrose Gel 15 GM/37.5 ML TUBE PO PRN ×2 (14:14)
[2017-04-04] MEDS ORDERED: 0.9 % Sodium Chloride 250 ML IVC PRN (14:14)
[2017-04-04] MEDS ORDERED: Bisacodyl 10 MG RECTAL SUPPOSITORY RC PRN (14:14)
[2017-04-04] MEDS ORDERED: 0.9 % Sodium Chloride 1,000 ML PRIME SCH (14:14)
[2017-04-04] MEDS ORDERED: Naloxone 0.4 MG/ML INJ IVP PRN (14:14)
[2017-04-04] MEDS: Cefepime HCl 1,000 MG in Water for inj. (sterile) 10 ML IVP SCH (16:12)
[2017-04-04] MEDS ORDERED: Cefepime HCl 1,000 MG in Water for inj. (sterile) 10 ML IVP SCH (18:00)
[2017-04-04] MEDS: Mirtazapine 15 MG TABLET GTUBE SCH (20:27)
[2017-04-05] MEDS: *HR* OxyCODONE Immed Rel 15 MG TABLET GTUBE PRN ×3 (03:58→17:45)
[2017-04-05] MEDS: Ipratropium/Albuterol Neb 3 ML IH SCH ×4 (04:24→22:53)
[2017-04-05] MEDS: Cefepime HCl 1,000 MG in Water for inj. (sterile) 10 ML IVP SCH ×2 (05:38→17:44)
[2017-04-05] MEDS: Furosemide 40 MG TABLET PO SCH ×2 (08:07→17:45)
[2017-04-05] MEDS: Chlorhexidine Rinse 15 ML MOUTHWASH MM SCH ×2 (08:07→21:47)
[2017-04-05] MEDS: Renal Vitamin 1 MG CAPSULE PO SCH (08:07)
[2017-04-05] MEDS: Insulin LISPRO 300 UNITS/3 ML VIAL SQ SCH ×4 (08:07→21:47)
[2017-04-05] MEDS: Pantoprazole 40 MG VIAL IVP SCH (08:07)
[2017-04-05 08:28] LABS: Red Blood Count 2.39 M/mcL (4.19-5.50)
[2017-04-05] MEDS ORDERED: Aminoglycoside Consult 1 EACH MC ONE (08:28)
[2017-04-05 08:30] LABS: Hematocrit 25.7 % (37.5-50.1); Hemoglobin 7.6 g/dL (12.9-16.9); Immature Platelets 13.8 % (1.1-6.1); Mean Corpuscular HGB Conc 29.6 g/dL (31.6-35.5); Mean Corpuscular Hemoglobin 31.8 pg (28.0-33.3); Mean Corpuscular Volume 107.5 fL (83.0-100.0); Red Cell Distribution Width 23.1 % (11.5-14.5)
[2017-04-05 08:42] LABS: Potassium 4.1 mEq/L (3.5-5.1)
[2017-04-05 08:50] LABS: Platelet Count 25 K/mcL (140-400)
[2017-04-05] MEDS ORDERED: Vancomycin 1 EACH in EMPTY BAG 1 EACH IVPB SCH (09:00)
[2017-04-05] MEDS: Budesonide/Formoterol 160/4.5 MDI IH SCH ×2 (09:58→22:53)
--- NOTE | 2017-04-05 10:14 | Nephrology Progress Note ---
Date of Encounter: 04/05/17 Time of Encounter: 10:06 - Assessment and Plan (1) Acute kidney injury Current Visit: Yes Status: Acute 1. TOVA. appears that he had ATN couple of months ago probably related to infection. Previous hospital records are not available. Recently noted to have some recovery of renal function and has been receiving dialysis intermittently. Patient is currently nonoliguric, creatinine has trended up from 1.6-2.6. Serum potassium and bicarbonate are stable. There is no acute indication for dialysis. Continue to monitor urine output and renal function. Continue by mouth Lasix 40 mg twice a day. Discontinue lisinopril while waiting for renal recovery 2. Essential hypertension. Increase carvedilol to 12.5 mg twice a day. DC lisinopril 3. Chronic anemia thrombocytopenia. His elevated RDW and MCV. Check iron studies B12 and folate 4. Bone metabolism. Check phosphate, calcium, PTH and vitamin D levels Subjective Principal diagnosis: esrd Interval history: 46-year-old male with chronic respiratory failure, has tracheostomy and ventilator dependent. He is a half-way resident,essentially bedridden for the last 3 years. Has h/o COPD,hypertension, hyperlipidemia. He was admitted with hypoxia, thought to be secondary to pneumonia and pulmonary edema. Lab significant for white count of 19.1, potassium 6.3, platelet count 23. Chest x- ray diffuse pulmonary edema and small left pleural effusion/infiltrate. Received platelets. He was dialyzed on 04/03. Being treated for healthcare associated pneumonia. Patient was transferred to [facility] yesterday. He is awake, denies chest pain or shortness of breath. Appears that he had acute renal failure about 2 months ago Was receiving intermittent dialysis as outpatient. Unsure of manager transfusion name. Stable overnight. Urine output 475 mL yesterday. 320 last night. Maza bag has about 400 mL this morning Objective - Vital Signs Vital signs: Vital Signs Temp Pulse Resp BP Pulse Ox 04/05/17 08:03 18 100 04/05/17 08:00 106 04/05/17 07:16 98.3 F 105 16 135/77 04/05/17 04:24 20 150/70 100 04/05/17 04:01 98.2 F 106 17 150/70 04/05/17 00:26 98.4 F 93 18 164/82 04/04/17 22:30 17 139/90 100 04/04/17 20:19 22 139/90 100 04/04/17 19:41 98.3 F 99 17 139/90 100 04/04/17 16:06 25 141/85 99 04/04/17 15:55 98 F 91 18 141/85 91 04/04/17 14:18 98.7 F 97 14 130/84 100 04/04/17 13:00 96 19 109/68 100 04/04/17 12:52 98.2 F 04/04/17 11:16 20 124/76 95 04/04/17 11:00 101 20 124/76 100 Intake and Output 04/04/17 04/05/17 04/05/17 23:59 07:59 15:59 Intake Total 300 / 300 0 / 0 480 / 480 Output Total 275 / 275 370 / 370 30 / 30 Balance 25 / -370 / -370 450 / 450 Intake: IV Fluids Maxipime 1,000 MG In Water for inj. (sterile) 10 ML @ 150 mls/ hr IVP Q12HR [facility] Rx#:[id number] Oral 290 / 290 0 / 0 480 / 480 Free Water Intake Amount 0 / 0 Output: Gastric Tube Lavage Amount 50 / 50 30 / 30 Left Upper Quadrant 50 / 50 30 / 30 Catheter 275 / 275 320 / 320 Other: Meal Breakfast Percent of Meal Consumed 100% Weight 122.3 kg Blood Glucose* 142 140 Patient Weight 04/05/17 23:59 Weight 122.3 kg - General Appearance Exam: CVS; s1s2 present, regular RESP; good air entry, minimal left basilar crackles ABD; soft, NT, BS present. PEG tube present EXT; 2+ edema. Skin ; chronic venous stasis changes present in the lower extremities MUSIC THERAPY SPECIALIST; alert. oriented x 3. CN grossly intact - Lab 04/05/17 08:00 04/05/17 08:00 Most recent lab results ABG pH 7.40 pH Units (7.32-7.45) 04/04/17 10:40 ABG pCO2 52 mmHg (35-45) H 04/04/17 10:40 ABG pO2 87 mmHg (85-104) 04/04/17 10:40 ABG HCO3 32 mEq/L (21-27) H 04/04/17 10:40 ABG O2 Saturation 96 % (95-98) 04/04/17 10:40 Calcium 8.0 mg/dL (8.6-10.3) L 04/05/17 08:00 Phosphorus 3.4 mg/dL (2.7-4.5) 04/03/17 13:13 Magnesium 1.7 mg/dL (1.6-2.6) 04/03/17 13:13 - VTE Documentation of Mechanical Device: Venous foot pump, device Consult Discharge Plan - Plan Referrals: Eduard Chapin MD [Primary Care Provider] -
--- NOTE | 2017-04-05 12:55 | Internal Med Progress Note ---
Date of Encounter: 04/05/17 Time of Encounter: 12:50 - Subjective Interval history: He was admitted with them increasing shortness of breath. He has a tracheostomy. - Constitutional Vitals: Temp Pulse Resp BP Pulse Ox 98.5 F 105 16 98/57 100 04/05/17 11:23 04/05/17 11:45 04/05/17 11:23 04/05/17 11:23 04/05/17 09:58 Internal Medicine: Result - Labs CBC & Chem 7: 04/05/17 08:00 04/05/17 08:00 Labs: Short CBC 04/05/17 Range/Units 08:00 WBC 10.3 (4.3-11.1) K/mcL Hgb 7.6 L (12.9-16.9) g/dL Hct 25.7 L (37.5-50.1) % Plt Count 25 L* (140-400) K/mcL BMP 04/05/17 08:00 Sodium 136 Potassium 4.1 Chloride 100 Carbon Dioxide 27 BUN 39 H Creatinine 2.61 H Glucose 138 H Calcium 8.0 L - ABG Interpretation ABG results: ABG ABG pH 7.40 pH Units (7.32-7.45) 04/04/17 10:40 ABG pCO2 52 mmHg (35-45) H 04/04/17 10:40 ABG pO2 87 mmHg (85-104) 04/04/17 10:40 ABG O2 Saturation 96 % (95-98) 04/04/17 10:40 PT/INR, D-dimer PT 11.5 Seconds (9.4-12.1) 04/03/17 13:13 - VTE Documentation of Mechanical Device: Venous foot pump, device Consult Discharge Plan - Plan Referrals: Eduard Chapin MD [Primary Care Provider] -
--- NOTE | 2017-04-05 13:29 | Internal Med Progress Note ---
Date of Encounter: 04/05/17 Time of Encounter: 12:50 - Assessment and plan (1) Acute respiratory failure Current Visit: No Status: Acute Assessment and plan: Segmented with acute respiratory failure but is not known patient with tracheostomy. Acute respiratory failure was felt secondary to decompensated congestive heart failure with suspected pneumonia. He was initially treated with ventilator in ICU. He also received IV Lasix. He is empirically treated with IV vancomycin and cefepime for suspected pneumonia. His hematuria hemoptysis has improved. He has been transferred to stepdown. His breathing is improving. Pulmonary following. Qualifiers: Respiratory failure complication: hypoxia and hypercapnia Qualified Code(s) : J96.01 - Acute respiratory failure with hypoxia; J96.02 - Acute respiratory failure with hypercapnia; J96.02 - Acute respiratory failure with hypercapnia; J96.02 - Acute respiratory failure with hypercapnia (2) Acute on chronic systolic (congestive) heart failure Current Visit: Yes Status: Acute Assessment and plan: Has a history of chronic systolic heart failure. Initial chest x-ray has evidence of pulmonary edema and pleural effusion.. He has 2+ edema. Has been treated with IV Lasix. Shortness of breath improving. Continue diuretics and monitor renal panel. (3) End stage renal disease on dialysis Current Visit: Yes Status: Acute Assessment and plan: He has been on hemodialysis. Nephrology following regarding hemodialysis. He has evidence of hypervolemia with 3 to overload. (4) Tracheostomy dependence Current Visit: Yes Status: Acute (5) Pneumonia Current Visit: Yes Status: Acute Assessment and plan: Initial chest x-ray revealed bilateral infiltrate with suspicion of pneumonia. He is on empiric antibiotic. Depending on further improvement/sputum culture determine whether he had definite pneumonia.. Qualifiers: Pneumonia type: due to unspecified organism Laterality: left Lung location: lower lobe of lung Qualified Code(s): J18.1 - Lobar pneumonia, unspecified organism (6) Other secondary thrombocytopenia Current Visit: Yes Status: Acute Assessment and plan: He has thrombocytopenia platelet, was 23 at platelet transfusion on and increased to 40 again back to 25 but he does not have any acute bleeding continue to monitor. He had a AML - Time Spent With Patient Greater than 35 minutes - Subjective Interval history: He was admitted with them bleeding from his tracheostomy and shortness of breath and he was admitted with acute respiratory failure. He is being treated for acute on chronic systolic heart failure and pneumonia. He was admitted to ICU [facility] His shortness of breath is better. No more bleeding through the tracheostomy tube. He is end-stage renal disease on hemodialysis. He denies any chest pain or shortness of breath at rest. Bleeding from the tracheostomy is improved. He has chronic leg edema with chronic skin changes. He is not confused. Stated that he is feeling better. - Constitutional Vitals: Temp Pulse Resp BP Pulse Ox 98.5 F 105 16 98/57 100 04/05/17 11:23 04/05/17 11:45 04/05/17 11:23 04/05/17 11:23 04/05/17 09:58 Exam: Chronically ill-looking male in no respiratory distress. He has tracheostomy. Has pallor no cyanosis or jaundice. CVS S1-S2 regular. Could not appreciate any murmur. Respiratory system decreased air entry bilaterally with bilateral rhonchi. Abdomen soft nontender. No hepatomegaly. Extremities has bilateral leg edema. Has skin lesions up to knee with unknown etiology. 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 Internal Medicine: Result - Labs CBC & Chem 7: 04/05/17 08:00 04/05/17 08:00 Labs: Short CBC 04/05/17 Range/Units 08:00 WBC 10.3 (4.3-11.1) K/mcL Hgb 7.6 L (12.9-16.9) g/dL Hct 25.7 L (37.5-50.1) % Plt Count 25 L* (140-400) K/mcL BMP 04/05/17 08:00 Sodium 136 Potassium 4.1 Chloride 100 Carbon Dioxide 27 BUN 39 H Creatinine 2.61 H Glucose 138 H Calcium 8.0 L - ABG Interpretation ABG results: ABG ABG pH 7.40 pH Units (7.32-7.45) 04/04/17 10:40 ABG pCO2 52 mmHg (35-45) H 04/04/17 10:40 ABG pO2 87 mmHg (85-104) 04/04/17 10:40 ABG O2 Saturation 96 % (95-98) 04/04/17 10:40 PT/INR, D-dimer PT 11.5 Seconds (9.4-12.1) 04/03/17 13:13 - VTE Documentation of Mechanical Device: Venous foot pump, device Consult Discharge Plan - Plan Referrals: Eduard Chapin MD [Primary Care Provider] -
[2017-04-05 14:35] LABS: Bilirubin,Urine Negative (Negative); Blood,Urine Moderate (Negative); Clarity,Urine Cloudy (Clear); Color,Urine Yellow (Yellow); Glucose,Urine (UA) 100 mg/dL (Normal); Ketones,Urine Negative (Negative); Leukocyte Esterase,Urine Small (Negative); Nitrite,Urine Negative (Negative); PH,Urine 6.5 pH Units (5.0-8.0); Protein,Urine >=300 mg/dL (Neg-Trace); Specific Gravity,Urine 1.012 (1.010-1.025); Urobilinogen,Urine Normal (Normal)
[2017-04-05 14:37] LABS: Bacteria,Urine Few per hpf (None-Few); Hyaline Casts,Urine Few per lpf (None-Few); Squamous Epithelial Cell,Urine Moderate per lpf (None-Few); WBC,Urine TNTC per hpf (0-3)
[2017-04-05] MEDS: Mirtazapine 15 MG TABLET GTUBE SCH (19:36)
[2017-04-06] MEDS: *HR* OxyCODONE Immed Rel 15 MG TABLET GTUBE PRN ×2 (03:35→07:49)
[2017-04-06] MEDS: Ipratropium/Albuterol Neb 3 ML IH SCH ×4 (04:44→21:46)
[2017-04-06 05:11] LABS: % Iron Saturation 11 % (20-55); Albumin 2.5 g/dL (3.5-5.7); BUN/Creatinine Ratio 14 (6-26); Blood Urea Nitrogen 46 mg/dL (6-20); Calcium 7.6 mg/dL (8.6-10.3); Carbon Dioxide 23 mEq/L (23-29); Chloride 101 mEq/L (98-107); Ferritin > 1350 ng/ml (20-250); Glucose 151 mg/dL (70-105); Iron 17 mcg/dL (65-175); Osmolality,Calculated 305 (280-300); Phosphorous 4.3 mg/dL (2.7-4.5); Potassium 3.9 mEq/L (3.5-5.1); Sodium 140 mEq/L (136-145); Transferrin 107 mg/dL (203-362); eGFR For African Americans 25 (> 60); eGFR For Non-African Americans 20 (> 60)
[2017-04-06] MEDS: Cefepime HCl 1,000 MG in Water for inj. (sterile) 10 ML IVP SCH ×2 (06:15→18:02)
[2017-04-06] MEDS: Insulin LISPRO 300 UNITS/3 ML VIAL SQ SCH ×4 (07:48→22:29)
[2017-04-06] MEDS: Chlorhexidine Rinse 15 ML MOUTHWASH MM SCH ×2 (07:49→19:34)
[2017-04-06] MEDS: Renal Vitamin 1 MG CAPSULE PO SCH (07:49)
[2017-04-06] MEDS: Furosemide 40 MG TABLET PO SCH (07:49)
[2017-04-06] MEDS: Pantoprazole 40 MG VIAL IVP SCH (07:49)
--- NOTE | 2017-04-06 09:44 | Nephrology Progress Note ---
Date of Encounter: 04/06/17 Time of Encounter: 10:10 - Assessment and Plan (1) Acute kidney injury Current Visit: Yes Status: Acute 1. TOVA. Possible ATN couple of months on intermittent hemodialysis. Patient nonoliguric, serum cr trended up from 2.6-3.2 suggesting some degree of renal recovery Decrease Lasix to once a day 2. Essential HTN. Has sinus tachycardia, BP borderline low. Decrease carvedilol to 6.25 mg twice a day. 3. Chronic anemia, thrombocytopenia. Iron sat 11 %, ferritin greater than 1350 , B12 311, folate pending further management as per primary service 4. Bone metabolism. PTH level 98. Vitamin D pending. Calcium corrected to albumin is normal 5. Pyuria. follow-up urine C&S 6. rpt cxr Subjective Principal diagnosis: esrd Interval history: 46-year-old male with chronic respiratory failure, has tracheostomy and ventilator dependent. He is a prison resident, h/o COPD,hypertension, hyperlipidemia. He was admitted with hypoxia, thought to be secondary to pneumonia and pulmonary edema. Chest x-ray diffuse pulmonary edema, small left pleural effusion/infiltrate. Received platelets. He was dialyzed on 04/03. Has TOVA, on intermittent HD as outpatient for the last couple of months Stable overnight. C/O minimal discomfort at the trach site. Heart rate in 100, SBP around 100. Intake 525, urine output 1610 Objective - Vital Signs Vital signs: Vital Signs Temp Pulse Resp BP Pulse Ox 04/06/17 07:48 116 04/06/17 07:37 98.9 F 113 18 100/61 96 04/06/17 04:44 21 98/53 96 04/06/17 04:00 99.2 F 96 18 98/53 97 04/05/17 23:02 98.9 F 100 16 101/58 97 04/05/17 22:54 20 100 04/05/17 20:36 18 100/60 96 04/05/17 19:44 98.4 F 101 16 100/60 98 04/05/17 16:15 98.6 F 103 16 104/56 100 04/05/17 16:09 15 104/56 100 04/05/17 15:40 97 04/05/17 11:45 105 04/05/17 11:23 98.5 F 103 16 98/57 04/05/17 09:58 20 135/77 100 Intake and Output 04/05/17 04/06/17 04/06/17 23:59 07:59 15:59 Intake Total 35 / 35 180 / 180 Output Total 490 / 490 135 / 135 Balance -455 / -455 45 / 45 Intake: IV Fluids Maxipime 1,000 MG In Water for inj. (sterile) 10 ML @ 150 mls/ hr IVP Q12HR [facility] Rx#:[id number] Oral 25 / 25 Free Water Intake Amount 180 / 180 Output: Gastric Tube Lavage Amount 50 / 50 Left Upper Quadrant 50 / 50 Catheter 440 / 440 135 / 135 Urethral (Maza) 220 / 220 135 / 135 Other: Weight 114 kg Blood Glucose* 188 170 Patient Weight 04/06/17 23:59 Weight 114 kg - General Appearance Exam: CVS; s1s2 present, regular RESP; good air entry, clear anteriorly. PermCath in the left chest ABD; soft, NT, BS present, PEG tube EXT; e 1+ jennifer, chronic venous stasis changes in the lower extremities [employer]; alert. oriented x 3. CN grossly intact - Lab 04/05/17 08:00 04/06/17 03:30 Most recent lab results ABG pH 7.40 pH Units (7.32-7.45) 04/04/17 10:40 ABG pCO2 52 mmHg (35-45) H 04/04/17 10:40 ABG pO2 87 mmHg (85-104) 04/04/17 10:40 ABG HCO3 32 mEq/L (21-27) H 04/04/17 10:40 ABG O2 Saturation 96 % (95-98) 04/04/17 10:40 Calcium 7.6 mg/dL (8.6-10.3) L 04/06/17 03:30 Phosphorus 4.3 mg/dL (2.7-4.5) 04/06/17 03:30 Magnesium 1.7 mg/dL (1.6-2.6) 04/03/17 13:13 - VTE Documentation of Mechanical Device: Venous foot pump, device Consult Discharge Plan - Plan Referrals: Eduard Chapin MD [Primary Care Provider] -
[2017-04-06] MEDS: Budesonide/Formoterol 160/4.5 MDI IH SCH ×2 (09:47→21:46)
--- NOTE | 2017-04-06 14:25 | Internal Med Progress Note ---
Date of Encounter: 04/06/17 Time of Encounter: 14:22 - Assessment and plan (1) Anemia in chronic renal disease Current Visit: Yes Status: Acute Assessment and plan: Check H&H today. Transfuse to maintain hemoglobin above 8.0. Qualifiers: Chronic kidney disease stage: on chronic dialysis Qualified Code(s): N18.6 - End stage renal disease; D63.1 - Anemia in chronic kidney disease; D63.1 - Anemia in chronic kidney disease; Z99.2 - Dependence on renal dialysis; Z99.2 - Dependence on renal dialysis; Z99.2 - Dependence on renal dialysis; Z99.2 - Dependence on renal dialysis (2) Acute respiratory failure Current Visit: No Status: Acute Assessment and plan: Continue with vent support via tracheostomy. Respiratory status improved. Continue with cefepime empirically for pneumonia. Follow-up with pulmonary service. Qualifiers: Respiratory failure complication: hypoxia and hypercapnia Qualified Code(s) : J96.01 - Acute respiratory failure with hypoxia; J96.02 - Acute respiratory failure with hypercapnia; J96.02 - Acute respiratory failure with hypercapnia; J96.02 - Acute respiratory failure with hypercapnia (3) End stage renal disease on dialysis Current Visit: Yes Status: Acute Assessment and plan: Intermittent hemodialysis per nephrology. Avoid nephrotoxins due to possible recovery of kidney function per nephrology. Continue with Lasix. (4) Tracheostomy dependence Current Visit: Yes Status: Acute (5) COPD (chronic obstructive pulmonary disease) Current Visit: Yes Status: Acute Assessment and plan: Inhaled albuterol and ipratropium. Qualifiers: COPD type: unspecified COPD Qualified Code(s): J44.9 - Chronic obstructive pulmonary disease, unspecified (6) T2DM (type 2 diabetes mellitus) Current Visit: Yes Status: Acute Assessment and plan: Insulin sliding scale. Diabetic diet. Qualifiers: Diabetes mellitus complication status: with circulatory complication Diabetes mellitus complication detail: with peripheral angiopathy without gangrene Diabetes mellitus termite exterminator insulin use: with half-way use Qualified Code(s): E11.51 - Type 2 diabetes mellitus with diabetic peripheral angiopathy without gangrene; Z79.4 - exterminator (current) use of insulin; Z79.4 - exterminator (current) use of insulin; Z79.4 - exterminator (current) use of insulin ; Z79.4 - exterminator (current) use of insulin (7) Pneumonia Current Visit: Yes Status: Acute Assessment and plan: Continue cefepime. Follow-up sputum culture. Qualifiers: Pneumonia type: due to unspecified organism Laterality: left Lung location: lower lobe of lung Qualified Code(s): J18.1 - Lobar pneumonia, unspecified organism (8) Acute on chronic systolic (congestive) heart failure Current Visit: Yes Status: Acute Assessment and plan: Has a history of chronic systolic heart failure. Initial chest x-ray has evidence of pulmonary edema and pleural effusion.. He has 2+ edema. No echocardiogram on record. We will obtain echocardiogram. Continue with Lasix. Daily weights. Strict I/O. (9) Other secondary thrombocytopenia Current Visit: Yes Status: Acute Assessment and plan: He has thrombocytopenia platelet, was 23 at platelet transfusion on and increased to 40 again back to 25 but he does not have any acute bleeding continue to monitor. He had a AML. (10) Acute bronchitis due to Rhinovirus Current Visit: Yes Status: Acute Assessment and plan: Supportive care. - Constitutional Vitals: Temp Pulse Resp BP Pulse Ox 98.3 F 105 14 94/58 95 04/06/17 11:54 04/06/17 12:41 04/06/17 11:54 04/06/17 11:54 04/06/17 11:54 Internal Medicine: Result - Labs CBC & Chem 7: 04/05/17 08:00 04/06/17 03:30 Labs: BMP 04/06/17 03:30 Sodium 140 Potassium 3.9 Chloride 101 Carbon Dioxide 23 BUN 46 H Creatinine 3.28 H Glucose 151 H Calcium 7.6 L Liver Function 04/06/17 Range/Units 03:30 Albumin 2.5 L (3.5-5.7) g/dL Urine 04/05/17 Range/Units 14:20 Urine Color Yellow (Yellow) Urine Clarity Cloudy A (Clear) Urine pH 6.5 (5.0-8.0) pH Units Ur Specific [place] 1.012 (1.010-1.025) Urine Protein >=300 H (Neg-Trace) mg/dL Urine Glucose (UA) 100 H (Normal) mg/dL - ABG Interpretation ABG results: ABG ABG pH 7.40 pH Units (7.32-7.45) 04/04/17 10:40 ABG pCO2 52 mmHg (35-45) H 04/04/17 10:40 ABG pO2 87 mmHg (85-104) 04/04/17 10:40 ABG O2 Saturation 96 % (95-98) 04/04/17 10:40 PT/INR, D-dimer PT 11.5 Seconds (9.4-12.1) 04/03/17 13:13 - VTE Documentation of Mechanical Device: Venous foot pump, device Consult Discharge Plan - Plan Referrals: Eduard Chapin MD [Primary Care Provider] -
[2017-04-06 15:16] LABS: Hematocrit 23.1 % (37.5-50.1); Hemoglobin 6.9 g/dL (12.9-16.9); Mean Corpuscular HGB Conc 29.9 g/dL (31.6-35.5); Nucleated Red Blood Cells 1.5 /100 WBC (0)
[2017-04-06 15:18] LABS: Basophils % 0.2 %; Eosinophils # 0.1 K/mcL (0.0-0.6); Eosinophils % 0.9 %; Immature Granulocytes % 2.1 % (0-4); Immature Platelets 16.5 % (1.1-6.1); Lymphocytes # 0.8 K/mcL (0.6-4.6); Mean Corpuscular Hemoglobin 31.9 pg (28.0-33.3); Mean Corpuscular Volume 106.9 fL (83.0-100.0); Monocytes # 1.1 K/mcL (0.0-1.3); Monocytes % 10.8 %; Red Blood Count 2.16 M/mcL (4.19-5.50); Red Cell Distribution Width 22.4 % (11.5-14.5)
[2017-04-06 15:23] LABS: Platelet Count 17 K/mcL (140-400)
[2017-04-06] MEDS ORDERED: Furosemide 40 MG/4 ML VIAL IVP ONE (15:28)
[2017-04-06] MEDS: Mirtazapine 15 MG TABLET GTUBE SCH (19:30)
[2017-04-07] MEDS: *HR* OxyCODONE Immed Rel 15 MG TABLET GTUBE PRN (01:34)
[2017-04-07] MEDS: Ipratropium/Albuterol Neb 3 ML IH SCH ×4 (04:37→21:59)
[2017-04-07 05:02] LABS: Basophils % 0.2 %; Eosinophils % 0.9 %
[2017-04-07 05:04] LABS: Eosinophils # 0.1 K/mcL (0.0-0.6); Hematocrit 23.4 % (37.5-50.1); Hemoglobin 7.3 g/dL (12.9-16.9); Immature Granulocytes % 1.6 % (0-4); Immature Platelets 5.3 % (1.1-6.1); Lymphocytes # 1.1 K/mcL (0.6-4.6); Lymphocytes % 10.9 %; Mean Corpuscular HGB Conc 31.2 g/dL (31.6-35.5); Mean Corpuscular Hemoglobin 31.7 pg (28.0-33.3); Mean Corpuscular Volume 101.7 fL (83.0-100.0); Mean Platelet Volume 10.4 fL (9.4-12.4); Monocytes # 1.2 K/mcL (0.0-1.3); Monocytes % 12.4 %; Nucleated Red Blood Cells 1.3 /100 WBC (0); Red Cell Distribution Width 23.1 % (11.5-14.5)
[2017-04-07 05:11] LABS: Neutrophils # 7.3 K/mcL (1.6-8.9); Platelet Count 89 K/mcL (140-400)
[2017-04-07] MEDS: Cefepime HCl 1,000 MG in Water for inj. (sterile) 10 ML IVP SCH ×2 (05:14→17:21)
[2017-04-07 05:28] LABS: Albumin 2.8 g/dL (3.5-5.7); Calcium 8.2 mg/dL (8.6-10.3); Phosphorous 5.1 mg/dL (2.7-4.5); Potassium 4.1 mEq/L (3.5-5.1)
[2017-04-07 05:46] LABS: Anisocytosis 3+ (Not Present); Polychromasia 1+ (Not Present)
[2017-04-07 05:48] LABS: Platelet Estimate Slight Decrease (Normal)
[2017-04-07] MEDS: Budesonide/Formoterol 160/4.5 MDI IH SCH ×2 (08:50→21:59)
[2017-04-07] MEDS: Insulin LISPRO 300 UNITS/3 ML VIAL SQ SCH ×4 (08:58→21:56)
[2017-04-07] MEDS: Renal Vitamin 1 MG CAPSULE PO SCH (08:58)
[2017-04-07] MEDS: Chlorhexidine Rinse 15 ML MOUTHWASH MM SCH ×2 (08:59→21:56)
[2017-04-07] MEDS: Pantoprazole 40 MG VIAL IVP SCH (08:59)
[2017-04-07] MEDS ORDERED: Furosemide 40 MG TABLET PO SCH (09:00)
--- NOTE | 2017-04-07 09:49 | Nephrology Progress Note ---
Date of Encounter: 04/07/17 Time of Encounter: 09:20 - Assessment and Plan (1) End stage renal disease on dialysis Current Visit: Yes Status: Acute TOVA in setting chronic resp failure and CHF. Thought to possibly regain renal fct. Creat worse 3.77, increasing dependent edema, tachypneic. Will do HD today. Orders given. Subjective Principal diagnosis: esrd Interval history: Alert, not as talkative. Somewhat tachypneic. Increased LE/buttock edema. Documented urine output 730 cc. Objective - Vital Signs Vital signs: Vital Signs Temp Pulse Resp BP Pulse Ox 04/07/17 08:52 20 123/66 97 04/07/17 07:44 99.3 F 147 20 123/66 97 04/07/17 04:38 14 94 04/07/17 03:45 98.8 F 105 16 117/67 96 04/07/17 01:30 98.8 F 105 16 97/56 96 04/07/17 01:15 98.3 F 103 16 99/49 04/07/17 01:08 99.0 F 16 96/49 97 04/07/17 00:38 99 F 106 16 88/54 96 04/07/17 00:34 17 94 04/06/17 22:41 99.7 F H 16 94/50 99 04/06/17 22:26 98.2 F 16 104/57 99 04/06/17 21:47 22 104/57 100 04/06/17 20:35 22 104/57 100 04/06/17 20:26 98.4 F 111 16 104/57 96 04/06/17 20:20 98.0 F 107 16 104/57 04/06/17 17:30 98.0 F 107 16 104/57 100 04/06/17 17:27 98.5 F 103 16 95/48 100 04/06/17 17:15 98.1 F 107 16 100/48 100 04/06/17 16:50 98.2 F 114 16 119/91 98 04/06/17 16:32 15 103/92 100 04/06/17 12:41 105 04/06/17 11:54 98.3 F 100 14 94/58 95 Intake and Output 04/06/17 04/07/17 04/07/17 23:59 07:59 15:59 Intake Total 500 / 500 510 / 510 Output Total 350 / 350 200 / 200 Balance 150 / 150 310 / 310 Intake: IV Fluids Maxipime 1,000 MG In Water for inj. (sterile) 10 ML @ 150 mls/ hr IVP Q12HR [facility] Rx#:[id number] Oral 240 / 240 Blood Product 250 / 250 500 / 500 Platelet Pheresis Lp Irr 1st 250 / 250 Unit [id number] Platelet Pheresis Lp Irr 2nd 0 / 0 250 / 250 Unit [id number] Rbcs Leuko Poor As-1 Unit 250 / 250 [id number] Free Water Intake Amount 0 / 0 Output: Urine 100 / 100 Gastric Tube Lavage Amount 20 / 20 Left Upper Quadrant 20 / 20 Catheter 230 / 230 200 / 200 Urethral (Maza) 165 / 165 50 / 50 Other: Meal Dinner Percent of Meal Consumed 80% Weight 112.9 kg Blood Glucose* 197 173 Patient Weight 04/07/17 23:59 Weight 112.9 kg - General Appearance General appearance: Present: well-developed, well-nourished, appears started age , obese Neck: Present: no JVD Respiratory: Present: course breath sounds Cardiology: Present: edema, regular rate, regular rhythm Gastrointestinal: Present: normoactive bowel sounds, no tenderness Psychiatric: Present: mood/affect appropriate, cooperative - Lab 04/07/17 04:46 04/07/17 04:46 Most recent lab results ABG pH 7.40 pH Units (7.32-7.45) 04/04/17 10:40 ABG pCO2 52 mmHg (35-45) H 04/04/17 10:40 ABG pO2 87 mmHg (85-104) 04/04/17 10:40 ABG HCO3 32 mEq/L (21-27) H 04/04/17 10:40 ABG O2 Saturation 96 % (95-98) 04/04/17 10:40 Calcium 8.2 mg/dL (8.6-10.3) L 04/07/17 04:46 Phosphorus 5.1 mg/dL (2.7-4.5) H 04/07/17 04:46 Magnesium 1.7 mg/dL (1.6-2.6) 04/03/17 13:13 - VTE Documentation of Mechanical Device: Intermittent pneumatic compression device Consult Discharge Plan - Plan Referrals: Eduard Chapin MD [Primary Care Provider] -
[2017-04-07] MEDS ORDERED: 0.9 % Sodium Chloride 250 ML IVC PRN (11:20)
[2017-04-07] MEDS ORDERED: *HR* Heparin 10,000 UNIT/10 ML VIAL IV PRN (11:32)
[2017-04-07 12:08] LABS: Bilirubin,Urine Negative (Negative); Blood,Urine Large (Negative); Clarity,Urine Cloudy (Clear); Color,Urine Yellow (Yellow); Glucose,Urine (UA) 100 mg/dL (Normal); Ketones,Urine Trace mg/dL (Negative); Leukocyte Esterase,Urine Moderate (Negative); Nitrite,Urine Negative (Negative); Protein,Urine >=300 mg/dL (Neg-Trace); Specific Gravity,Urine 1.018 (1.010-1.025); Urobilinogen,Urine Normal (Normal)
[2017-04-07 12:11] LABS: Bacteria,Urine Many per hpf (None-Few); Hyaline Casts,Urine None Seen per lpf (None-Few); RBC,Urine TNTC per hpf (0-3); Squamous Epithelial Cell,Urine Moderate per lpf (None-Few); WBC,Urine TNTC per hpf (0-3)
--- NOTE | 2017-04-07 14:50 | Internal Med Progress Note ---
Date of Encounter: 04/07/17 Time of Encounter: 14:44 - Assessment and plan (1) Anemia in chronic renal disease Current Visit: Yes Status: Acute Assessment and plan: Transfuse 1 unit of PRBC. With goal to maintain hemoglobin above 8. Qualifiers: Chronic kidney disease stage: on chronic dialysis Qualified Code(s): N18.6 - End stage renal disease; D63.1 - Anemia in chronic kidney disease; D63.1 - Anemia in chronic kidney disease; Z99.2 - Dependence on renal dialysis; Z99.2 - Dependence on renal dialysis; Z99.2 - Dependence on renal dialysis; Z99.2 - Dependence on renal dialysis (2) Acute respiratory failure Current Visit: No Status: Acute Assessment and plan: Continue with vent support via tracheostomy. Respiratory status improved. Continue with cefepime empirically for pneumonia. Respiratory culture grew Pseudomonas and Serratia. Continue with cefepime. We will add Levaquin for double coverage of Serratia which could have inducible extended beta lactamase. Chest x-ray obtained today shows no improvement in bilateral infiltrates. We will add Zyvox for coverage of VRE given that the patient has a history of VRE. Qualifiers: Respiratory failure complication: hypoxia and hypercapnia Qualified Code(s) : J96.01 - Acute respiratory failure with hypoxia; J96.02 - Acute respiratory failure with hypercapnia; J96.02 - Acute respiratory failure with hypercapnia; J96.02 - Acute respiratory failure with hypercapnia (3) End stage renal disease on dialysis Current Visit: Yes Status: Acute Assessment and plan: Intermittent hemodialysis per nephrology. Avoid nephrotoxins due to possible recovery of kidney function per nephrology. Continue with Lasix. (4) Tracheostomy dependence Current Visit: Yes Status: Acute Assessment and plan: Continue mechanical ventilation via tracheostomy (5) COPD (chronic obstructive pulmonary disease) Current Visit: Yes Status: Acute Assessment and plan: Inhaled albuterol and ipratropium. Qualifiers: COPD type: unspecified COPD Qualified Code(s): J44.9 - Chronic obstructive pulmonary disease, unspecified (6) T2DM (type 2 diabetes mellitus) Current Visit: Yes Status: Acute Assessment and plan: Insulin sliding scale. Diabetic diet. 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 Add Levaquin for coverage of Pseudomonas and Serratia. Qualifiers: Pneumonia type: due to unspecified organism Laterality: left Lung location: lower lobe of lung Qualified Code(s): J18.1 - Lobar pneumonia, unspecified organism (8) Acute on chronic systolic (congestive) heart failure Current Visit: Yes Status: Acute Assessment and plan: Has a history of chronic systolic heart failure. Initial chest x-ray has evidence of pulmonary edema and pleural effusion.. He has 2+ edema. No echocardiogram on record. We will obtain echocardiogram. Continue with Lasix. Daily weights. Strict I/O. (9) Other secondary thrombocytopenia Current Visit: Yes Status: Acute Assessment and plan: He has thrombocytopenia platelet, was 23 at platelet transfusion on and increased to 40 again back to 25 but he does not have any acute bleeding continue to monitor. He had a AML. (10) Acute bronchitis due to Rhinovirus Current Visit: Yes Status: Acute Assessment and plan: Supportive care. (11) Urinary tract infection Current Visit: Yes Status: Acute Assessment and plan: Patient has a history of VRE in the urine. We will add Zyvox for coverage of VRE. Qualifiers: Urinary tract infection type: acute cystitis Hematuria presence: with hematuria Qualified Code(s): N30.01 - Acute cystitis with hematuria - Subjective Interval history: Patient is more tachicardic and less interactive today, per patient's nurse he has been having facial twitching since early afternoon. - Constitutional Vitals: Temp Pulse Resp BP Pulse Ox 100.0 F H 114 12 100/64 95 04/07/17 11:45 04/07/17 11:45 04/07/17 11:45 04/07/17 11:45 04/07/17 11:45 General appearance: Present: A&O X 2, no acute distress, answers questions appropriately - Eye Eye exam: Present: PERRL, conjuntiva pink, sclera anicteric Pupils: Present: PERRL - Respiratory Respiratory exam: Present: rales, wheezes. Absent: accessory muscle use, rhonchi - Cardiovascular Cardiovascular exam: Present: RRR, +S1, +S2, tachycardia. Absent: diastolic murmur, gallop, rubs, systolic murmur - GI/Abdominal GI/Abdominal exam: Present: normal bowel sounds, soft, no peritoneal signs. Absent: distended, tenderness - Neurological Exam Neurological exam: Present: no focal deficits, speech deficit. Absent: pronater drift, facial droop Additional comments: Difficult to assess due to tracheostomy, he answers questions appropriately. Motor strength is diminished throughout in both upper and lower extremities however there is no focal neurological deficit. Internal Medicine: Result - Labs CBC & Chem 7: 04/07/17 04:46 04/07/17 04:46 Labs: Short CBC 04/06/17 04/07/17 Range/Units 15:05 04:46 WBC 10.3 9.8 (4.3-11.1) K/mcL Hgb 6.9 L 7.3 L (12.9-16.9) g/dL Hct 23.1 L 23.4 L (37.5-50.1) % Plt Count 17 L* 89 L D (140-400) K/mcL Neutrophils # 8.0 7.3 (1.6-8.9) K/mcL BMP 04/07/17 04:46 Sodium 137 Potassium 4.1 Chloride 100 Carbon Dioxide 24 BUN 52 H Creatinine 3.77 H Glucose 171 H Calcium 8.2 L Liver Function 04/07/17 Range/Units 04:46 Albumin 2.8 L (3.5-5.7) g/dL Urine 04/07/17 Range/Units 11:45 Urine Color Yellow (Yellow) Urine Clarity Cloudy A (Clear) Urine pH 6.0 (5.0-8.0) pH Units Ur Specific [place] 1.018 (1.010-1.025) Urine Protein >=300 H (Neg-Trace) mg/dL Urine Glucose (UA) 100 H (Normal) mg/dL - ABG Interpretation ABG results: ABG ABG pH 7.40 pH Units (7.32-7.45) 04/04/17 10:40 ABG pCO2 52 mmHg (35-45) H 04/04/17 10:40 ABG pO2 87 mmHg (85-104) 04/04/17 10:40 ABG O2 Saturation 96 % (95-98) 04/04/17 10:40 PT/INR, D-dimer PT 11.5 Seconds (9.4-12.1) 04/03/17 13:13 - Impressions Impressions Chest X-Ray 04/06/17 10:09 IMPRESSION: Expiratory chest with findings suggestive of interval improvement but incomplete resolution of diffuse bilateral multifocal airspace disease when compared to 04/03/2017 as described above. D/ / 04/06/2017 16:17:51 Kaiser Patrick MD / terrence Interpreting Provider: Kaiser Patrick MD Echocardiogram 04/07/17 07:00 Impressions: Technically sub-optimal due to clinical status, poor windows. Suboptimal image quality makes precise evaluation of LV function difficult. Grossly, LVEF appears low normal/mildly reduced. Mildly dilated left ventricle. Indeterminate diastolic function. Grossly, mildly dilated right ventricle with normal appearing function. No evidence of pulmonary hypertension identified. No obvious significant valvular dysfunction. Recommend a repeat limited study with contrast enhancement for better evaluation of LV function. Findings: Study Quality * Technically sub-optimal due to clinical status, poor windows. ECG Findings * Difficult to determine rhythm. Appears to be sinus tachycardia, but possibly atrial flutter/tachycardia at tiimes. Left Ventricle * Suboptimal image quality makes precise evaluation of LV function difficult. Grossly, LVEF appears low normal/mildly reduced. * Mildly dilated left ventricle. * Indeterminate diastolic function. Right Ventricle * Grossly, mildly dilated right ventricle with normal appearing function. Left Atrium * Moderately dilated left atrium. Right Atrium * Mildly dilated right atrium. Interatrial Septum * Interatrial septum not well evaluated. Aortic Valve * Aortic valve not well visualized. * Trileaflet aortic valve. * No aortic regurgitation. * No aortic stenosis. Mitral Valve * Mildly thickened mitral valve leaflets. * Trace mitral regurgitation. * No mitral stenosis. Tricuspid Valve * Normal tricuspid valve structure and function. * Trace tricuspid regurgitation. * No evidence of pulmonary hypertension identified. Pulmonic Valve * Pulmonic valve is not well visualized. * No pulmonic regurgitation. Aorta * Normally sized aortic root. Pericardium * There is a trivial pericardial effusion present. IVC * The IVC is not well evaluated. Pulmonary Artery * Normal visualized portions of the main pulmonary artery. Chest X-Ray 04/07/17 11:44 IMPRESSION: Bibasilar airspace disease not substantially changed. D/ / Mahesh Alcaraz MD / Mahesh Alcaraz MD Interpreting Provider: Mahesh Alcaraz MD - VTE Documentation of Mechanical Device: Intermittent pneumatic compression device Consult Discharge Plan - Plan Referrals: Eduard Chapin MD [Primary Care Provider] -
[2017-04-07] MEDS ORDERED: LEVOFLOXACIN 750 MG/150 ML IVPB SCH (16:00)
--- NOTE | 2017-04-07 20:14 | Event Note ---
Date of Encounter: 04/07/17 Time of Encounter: 20:09 Called to see patient for new onset tremors, myoclonic jerks, aphasia, and blank stare. Patient had medication change today (Cymbalta stopped and Zyvox started). I worry about tardive dyskinesia effect and/or other LINKER UP effect from medication interaction. I called and discussed with pharmacy and reviewed medication. Pharmacy agrees and we both agree patient needs a dose of Cogentin -- ordered. I also stopped Zyvox. I will also order Head CT and ask RN to monitor closely.
[2017-04-08] MEDS: *HR* OxyCODONE Immed Rel 15 MG TABLET GTUBE PRN ×2 (00:57→12:09)
[2017-04-08] MEDS: Ipratropium/Albuterol Neb 3 ML IH SCH ×4 (03:45→22:35)
[2017-04-08 04:26] LABS: Basophils % 0.2 %; Eosinophils # 0.1 K/mcL (0.0-0.6); Eosinophils % 0.5 %; Hematocrit 24.2 % (37.5-50.1); Hemoglobin 7.4 g/dL (12.9-16.9); Immature Granulocytes % 0.9 % (0-4); Immature Platelets 9.4 % (1.1-6.1); Lymphocytes # 0.8 K/mcL (0.6-4.6); Lymphocytes % 8.3 %; Mean Corpuscular HGB Conc 30.6 g/dL (31.6-35.5); Mean Corpuscular Hemoglobin 31.1 pg (28.0-33.3); Mean Corpuscular Volume 101.7 fL (83.0-100.0); Mean Platelet Volume 10.8 fL (9.4-12.4); Monocytes % 11.5 %; Red Blood Count 2.38 M/mcL (4.19-5.50); Red Cell Distribution Width 22.3 % (11.5-14.5); Segmented Neutrophils % 78.6 %
[2017-04-08 04:29] LABS: Monocytes # 1.2 K/mcL (0.0-1.3); Neutrophils # 7.9 K/mcL (1.6-8.9); Platelet Count 48 K/mcL (140-400)
[2017-04-08 04:42] LABS: BUN/Creatinine Ratio 11 (6-26); Blood Urea Nitrogen 29 mg/dL (6-20); Calcium 8.2 mg/dL (8.6-10.3); Carbon Dioxide 27 mEq/L (23-29); Chloride 97 mEq/L (98-107); Glucose 145 mg/dL (70-105); Osmolality,Calculated 288 (280-300); Potassium 3.9 mEq/L (3.5-5.1); Sodium 135 mEq/L (136-145); eGFR For African Americans 32 (> 60); eGFR For Non-African Americans 26 (> 60)
[2017-04-08] MEDS: Cefepime HCl 1,000 MG in Water for inj. (sterile) 10 ML IVP SCH ×2 (06:02→16:56)
--- NOTE | 2017-04-08 08:06 | Nephrology Progress Note ---
Date of Encounter: 04/08/17 Time of Encounter: 08:03 - Assessment and Plan (1) End stage renal disease on dialysis Current Visit: Yes Status: Acute Patient appears to be dialysis dependent. He will undergo dialysis again tomorrow. He does have some residual renal function and therefore some urine output. Hemoglobin 7.4. He will be placed on Aranesp. (2) Anemia in chronic renal disease Current Visit: Yes Status: Acute Qualifiers: Chronic kidney disease stage: on chronic dialysis Qualified Code(s): N18.6 - End stage renal disease; D63.1 - Anemia in chronic kidney disease; D63.1 - Anemia in chronic kidney disease; Z99.2 - Dependence on renal dialysis; Z99.2 - Dependence on renal dialysis; Z99.2 - Dependence on renal dialysis; Z99.2 - Dependence on renal dialysis Subjective Principal diagnosis: esrd Interval history: Patient is on the ventilator. He does seem to make eye contact when his name is called. Urine output is 760 cc. the patient did undergo dialysis yesterday. Objective - Vital Signs Vital signs: Vital Signs Temp Pulse Resp BP Pulse Ox 04/08/17 07:45 99.6 F 103 10 98/55 99 04/08/17 04:00 99.5 F 106 16 97/51 99 04/08/17 03:46 14 98 04/07/17 23:41 14 98 04/07/17 22:06 14 100 04/07/17 22:02 14 100 04/07/17 20:11 99.0 F 109 18 113/65 97 04/07/17 18:35 98.7 F 14 114/70 04/07/17 18:20 99/61 04/07/17 18:05 114/50 04/07/17 17:50 106/61 04/07/17 17:35 128/72 04/07/17 17:20 131/65 04/07/17 17:05 139/83 04/07/17 16:50 108/67 04/07/17 16:35 110/74 04/07/17 16:20 102/62 04/07/17 16:05 100/65 04/07/17 15:50 104/69 04/07/17 15:35 120/65 04/07/17 15:20 99.7 F H 14 120/72 04/07/17 15:00 14 95 01/22/18 11:45 100.0 F H 114 12 100/64 95 04/07/17 08:52 20 123/66 97 04/07/17 08:45 99.3 F 115 20 123/66 97 Intake and Output 04/07/17 04/08/17 04/08/17 23:59 07:59 15:59 Intake Total 0 / 0 10 Output Total 3920 / 3920 90 / 90 Balance -3920 / -3920 -80 / -80 Intake: IV Fluids Maxipime 1,000 MG In Water for inj. (sterile) 10 ML @ 150 mls/ hr IVP Q12HR [facility] Rx#:[id number] Oral 0 / 0 0 / 0 Output: Urine 0 / 0 0 / 0 Gastric Tube Lavage Amount 50 / 50 Left Upper Quadrant 50 / 50 Total Dialysis (HD) Output 3600 / 3600 Catheter 320 / 320 40 / 40 Urethral (Maza) 160 / 160 20 / 20 Other: Blood Glucose* 192 182 Hemodialysis Net Fluid Removed 3000 (mL) - General Appearance Exam: Patient is in no acute distress. Blood pressure 97/51. Lungs coarse breath sounds. Heart regular regular rate and rhythm. Abdomen is benign. There is some lower extremity swelling along with erythema and chronic skin changes of the lower extremities. There is a tunnel dialysis catheter in the left chest. - Lab 04/08/17 04:09 04/08/17 04:09 Most recent lab results ABG pH 7.40 pH Units (7.32-7.45) 04/04/17 10:40 ABG pCO2 52 mmHg (35-45) H 04/04/17 10:40 ABG pO2 87 mmHg (85-104) 04/04/17 10:40 ABG HCO3 32 mEq/L (21-27) H 04/04/17 10:40 ABG O2 Saturation 96 % (95-98) 04/04/17 10:40 Calcium 8.2 mg/dL (8.6-10.3) L 04/08/17 04:09 Phosphorus 5.1 mg/dL (2.7-4.5) H 04/07/17 04:46 Magnesium 1.7 mg/dL (1.6-2.6) 04/03/17 13:13 - VTE Documentation of Mechanical Device: Intermittent pneumatic compression device Consult Discharge Plan - Plan Referrals: Eduard Chapin MD [Primary Care Provider] -
[2017-04-08] MEDS ORDERED: Ferumoxytol 510 MG in 0.9 % Sodium Chloride 100 ML IVPB ONE (08:08)
[2017-04-08] MEDS: Pantoprazole 40 MG VIAL IVP SCH (08:13)
[2017-04-08] MEDS ORDERED: Darbepoetin 150 MCG/0.3 ML SYRINGE SQ SCH (08:15)
[2017-04-08] MEDS: Insulin LISPRO 300 UNITS/3 ML VIAL SQ SCH ×4 (09:43→21:00)
[2017-04-08] MEDS: Chlorhexidine Rinse 15 ML MOUTHWASH MM SCH ×2 (09:53→20:44)
[2017-04-08] MEDS: Furosemide 40 MG TABLET PO SCH ×2 (09:53→20:44)
[2017-04-08] MEDS: Renal Vitamin 1 MG CAPSULE PO SCH (09:53)
[2017-04-08] MEDS: Budesonide/Formoterol 160/4.5 MDI IH SCH ×2 (10:48→22:40)
--- NOTE | 2017-04-08 12:51 | Internal Med Progress Note ---
Date of Encounter: 04/08/17 Time of Encounter: 12:51 - Subjective Interval history: Interval changes: Today he is very somnulent. He is new to me but RN states this is an acute change since yesterday. Overnight the bibiana HAMMOND was called to see him for tremors and myoclonic jerks as well as aphasia. Zyvox had been started yesterday afternoon and the bibiana HAMMOND was concerned for and interaction with Cymbalt. So both his Cymbalta and Zyvox were held. Cogentin was started last night. A Head CT was done and did not show acute changes. Physical exam: See below Assessment and Plan: Acute change in mental status and possible new onset tremors/myoclonic jerks: Head scan neg for acute process. Consult neurology Possible drug interaction zyvox and Cymbolta Acute on chronic respiratory failure Chronic tracheostomy patient on vent support. Sputum cultures positive for Serratia and P. aerug. Concern for PNA. Cefepime and Levaquin were initially started at time of admission. COPD (chronic obstructive pulmonary disease) Inhaled albuterol and ipratropium. Acute bronchitis due to Rhinovirus Supportive care. VRE UTI: Zyvox stopped and Daptomycin started. ID consulted for abx guidance End stage renal disease on dialysis Intermittent hemodialysis per nephrology. Avoid nephrotoxins due to possible recovery of kidney function per nephrology. Continue with Lasix. Anemia in chronic renal disease Maintain hemoglobin above 8. S/p transfusion of 1 unit PRBC T2DM (type 2 diabetes mellitus) Insulin sliding scale. Diabetic diet. Acute on chronic systolic (congestive) heart failure Has a history of chronic systolic heart failure. Initial chest x-ray has evidence of pulmonary edema and pleural effusion.. He has 2+ edema. We will obtain echocardiogram. Continue with Lasix. Daily weights. Strict I/O. Secondary thrombocytopenia He has thrombocytopenia platelet, was 23 at platelet transfusion on and increased to 40 again back to 25 but he does not have any acute bleeding continue to monitor. He had a AML. (11) Urinary tract infection Current Visit: Yes Status: Acute Assessment and plan: Patient has a history of VRE in the urine. We will add Zyvox for coverage of VRE. - Constitutional Vitals: Temp Pulse Resp BP Pulse Ox 99.9 F H 106 11 102/54 99 04/08/17 12:03 04/08/17 12:03 04/08/17 12:03 04/08/17 12:03 04/08/17 12:03 General appearance: Present: no acute distress - Head Head exam: Present: atraumatic, normocephalic - Eye Eye exam: Present: conjunctival injection, PERRL, conjuntiva pink, sclera anicteric Pupils: Present: PERRL - Neck Neck exam general surgery: Present: supple, trachea midline. Absent: lymphadenopathy - Respiratory Respiratory exam: Present: CTAB. Absent: accessory muscle use, rales, rhonchi, wheezes - Cardiovascular Cardiovascular exam: Present: RRR, +S1, +S2. Absent: diastolic murmur, gallop, rubs, systolic murmur - GI/Abdominal GI/Abdominal exam: Present: normal bowel sounds, soft, no peritoneal signs. Absent: distended, tenderness - Extremities Exam Extremities exam: Present: warm, radial pulses palpable and symmetrical. Absent : calf tenderness, cyanotic, pedal edema - Neurological Exam Neurological exam: Present: oriented X3, no focal deficits. Absent: pronater drift, facial droop, speech deficit - Skin Skin exam: Present: dry, erythema, intact, rash, warm Additional comments: Bilateral LE venous stasis dermatitis Internal Medicine: Result - Labs CBC & Chem 7: 04/08/17 04:09 04/08/17 04:09 Labs: Short CBC 04/08/17 Range/Units 04:09 WBC 10.0 (4.3-11.1) K/mcL Hgb 7.4 L (12.9-16.9) g/dL Hct 24.2 L (37.5-50.1) % Plt Count 48 L (140-400) K/mcL Neutrophils # 7.9 (1.6-8.9) K/mcL BMP 04/08/17 04:09 Sodium 135 L Potassium 3.9 Chloride 97 L Carbon Dioxide 27 BUN 29 H Creatinine 2.62 H Glucose 145 H Calcium 8.2 L - ABG Interpretation ABG results: ABG ABG pH 7.40 pH Units (7.32-7.45) 04/04/17 10:40 ABG pCO2 52 mmHg (35-45) H 04/04/17 10:40 ABG pO2 87 mmHg (85-104) 04/04/17 10:40 ABG O2 Saturation 96 % (95-98) 04/04/17 10:40 PT/INR, D-dimer PT 11.5 Seconds (9.4-12.1) 04/03/17 13:13 - Impressions Impressions Head CT 04/07/17 20:14 IMPRESSION: Negative CT brain with no acute intracranial abnormality. D/ / Philpi Cash MD / Philip Cash MD Interpreting Provider: Philip Cash MD - VTE Documentation of Mechanical Device: Venous foot pump, device Consult Discharge Plan - Plan Referrals: Eduard Chapin MD [Primary Care Provider] -
[2017-04-08] MEDS ORDERED: DAPTOMYCIN IVPB SCH ×3 (16:00→18:00)
[2017-04-08] MEDS ORDERED: SODIUM CHLORIDE 0.9% IVPB SCH ×3 (16:00→18:00)
[2017-04-08 19:04] LABS: Creatine Kinase < 10 Units/L (30-223)
[2017-04-08] MEDS ORDERED: 0.9 % Sodium Chloride 500 ML ONE (22:14)
[2017-04-09] MEDS: Ipratropium/Albuterol Neb 3 ML IH SCH ×4 (04:54→22:13)
[2017-04-09] MEDS: Cefepime HCl 1,000 MG in Water for inj. (sterile) 10 ML IVP SCH ×2 (06:00→18:53)
[2017-04-09 06:25] LABS: Basophils % 0.3 %; Mean Corpuscular Volume 98.9 fL (83.0-100.0)
[2017-04-09 06:27] LABS: Eosinophils # 0.1 K/mcL (0.0-0.6); Eosinophils % 0.8 %; Hematocrit 26.4 % (37.5-50.1); Hemoglobin 8.2 g/dL (12.9-16.9); Immature Platelets 13.3 % (1.1-6.1); Lymphocytes # 1.4 K/mcL (0.6-4.6); Lymphocytes % 13.6 %; Mean Corpuscular HGB Conc 31.1 g/dL (31.6-35.5); Mean Corpuscular Hemoglobin 30.7 pg (28.0-33.3); Mean Platelet Volume 12.3 fL (9.4-12.4); Monocytes # 1.4 K/mcL (0.0-1.3); Monocytes % 12.7 %; Neutrophils # 7.6 K/mcL (1.6-8.9); Nucleated Red Blood Cells 0.3 /100 WBC (0); Red Blood Count 2.67 M/mcL (4.19-5.50); Red Cell Distribution Width 21.6 % (11.5-14.5); Segmented Neutrophils % 71.6 %
[2017-04-09 06:35] LABS: Platelet Count 30 K/mcL (140-400)
[2017-04-09 06:49] LABS: Albumin 2.5 g/dL (3.5-5.7); Albumin/Globulin Ratio 0.9 (1.1-2.2); Bilirubin,Total 1.1 mg/dL (0.3-1.0); Calcium 8.3 mg/dL (8.6-10.3); Globulin 2.8 g/dL (2.4-3.5); Potassium 4.6 mEq/L (3.5-5.1); Total Protein 5.3 g/dL (6.4-8.9)
[2017-04-09] MEDS ORDERED: 0.9 % Sodium Chloride 250 ML IVC PRN (08:22)
--- NOTE | 2017-04-09 08:22 | Nephrology Progress Note ---
Date of Encounter: 04/09/17 Time of Encounter: 08:20 - Assessment and Plan (1) End stage renal disease on dialysis Current Visit: Yes Status: Acute The patient will undergo dialysis today. Platelet count is 30,000. He will not receive any heparin. (2) Anemia in chronic renal disease Current Visit: Yes Status: Acute Qualifiers: Chronic kidney disease stage: on chronic dialysis Qualified Code(s): N18.6 - End stage renal disease; D63.1 - Anemia in chronic kidney disease; D63.1 - Anemia in chronic kidney disease; Z99.2 - Dependence on renal dialysis; Z99.2 - Dependence on renal dialysis; Z99.2 - Dependence on renal dialysis; Z99.2 - Dependence on renal dialysis Subjective Principal diagnosis: esrd Interval history: The patient remains on the ventilator. He is nonverbal. He has fasciculations of his tongue and eyelids. Patient is scheduled for his usual dialysis today. Objective - Vital Signs Vital signs: Vital Signs Temp Pulse Resp BP Pulse Ox 04/09/17 08:05 98.3 F 113 18 122/65 98 04/09/17 04:55 17 97 04/09/17 04:27 98.3 F 116 18 99/70 100 04/09/17 02:20 14 98 04/09/17 02:03 99 F 111 16 112/63 99 04/09/17 00:15 111 14 98 04/08/17 22:49 99.0 F 114 16 105/64 97 04/08/17 22:44 99.0 F 117 16 108/61 04/08/17 22:35 25 99 04/08/17 22:34 98.7 F 115 18 103/58 04/08/17 21:03 114 04/08/17 19:27 99.5 F 113 16 109/60 100 04/08/17 16:16 99.1 F 106 13 99/53 100 04/08/17 15:59 14 99 04/08/17 12:03 99.9 F H 106 11 102/54 99 04/08/17 10:49 14 99 04/08/17 09:52 98/55 Intake and Output 04/08/17 04/09/17 04/09/17 23:59 07:59 15:59 Intake Total 340 / 340 Output Total 125 / 125 Balance -15 / -15 215 / 215 Intake: IV Fluids Maxipime 1,000 MG In Water for inj. (sterile) 10 ML @ 150 mls/ hr IVP Q12HR [facility] Rx#:[id number] Oral 0 / 0 0 / 0 Blood Product 0 / 0 340 / 340 Rbcs Leuko Poor As-1 Unit 0 / 0 340 / 340 [id number] Free Water Intake Amount 0 / 0 0 / 0 Output: Gastric Tube Lavage Amount 0 / 0 0 / 0 Left Upper Quadrant 0 / 0 0 / 0 Catheter 25 / 25 125 / 125 Other: Blood Glucose* 142 107 - General Appearance Exam: Patient remains on the ventilator. Vital signs are stable. Urine output is 205 mL. Lungs coarse breath sounds bilaterally. Heart regular rate and rhythm. Abdomen is benign. Lower extremities show edema up past the knees as well as erythema and evidence of skin desquamation. - Lab 04/09/17 06:01 04/09/17 06:01 Most recent lab results ABG pH 7.40 pH Units (7.32-7.45) 04/04/17 10:40 ABG pCO2 52 mmHg (35-45) H 04/04/17 10:40 ABG pO2 87 mmHg (85-104) 04/04/17 10:40 ABG HCO3 32 mEq/L (21-27) H 04/04/17 10:40 ABG O2 Saturation 96 % (95-98) 04/04/17 10:40 Calcium 8.3 mg/dL (8.6-10.3) L 04/09/17 06:01 Phosphorus 5.1 mg/dL (2.7-4.5) H 04/07/17 04:46 Magnesium 1.7 mg/dL (1.6-2.6) 04/03/17 13:13 - VTE Documentation of Mechanical Device: Venous foot pump, device Consult Discharge Plan - Plan Referrals: Eduard Chapin MD [Primary Care Provider] -
[2017-04-09] MEDS: Renal Vitamin 1 MG CAPSULE PO SCH (09:21)
[2017-04-09] MEDS: Chlorhexidine Rinse 15 ML MOUTHWASH MM SCH ×2 (09:21→19:58)
[2017-04-09] MEDS: Furosemide 40 MG TABLET PO SCH ×2 (09:21→19:58)
[2017-04-09] MEDS: Pantoprazole 40 MG VIAL IVP SCH (09:21)
[2017-04-09] MEDS ORDERED: 0.9 % Sodium Chloride 2,000 ML ONE (09:27)
[2017-04-09] MEDS: Insulin LISPRO 300 UNITS/3 ML VIAL SQ SCH ×4 (09:37→19:58)
--- NOTE | 2017-04-09 09:49 | Infectious Disease Consult ---
Date of Encounter: 04/09/17 Time of Encounter: 09:48 Assessment and Plan (1) Sepsis Status: Acute Assessment and plan: three sirs cirteria of tachycardia, leukocytosis, tachypnea. All have resolved except for tachycardia. Heart rate 109 this morning. Without lactic acidosis. Secondary to pneumonia. Sputum culture grew Pseudomonas aeruginosa and Serratia marcescens Also UTI: Urine cultures grew enterococcus. Patient has a previous history of VRE. Sensitivities are not resulted yet. Currently patient is on daptomycin 680mg daily day 2 and cefepime 1000mg Q12h day 6. Qualifiers: Sepsis type: Pseudomonas Qualified Code(s): A41.52 - Sepsis due to Pseudomonas (2) VRE (vancomycin-resistant Enterococci) infection Status: Suspected Assessment and plan: urine culture 03/09 grew VRE: unclear what he was treated with at that time ( reviewed records from [facility]) urine culture 04/07 and 04/06 grew enterococcus awaiting sensitivities Not sure if this is a true UTI versus colonization. Problem is that the patient does not give us any medical information or review of system. patient has received 1 dose of vancomycin versus discontinued due to being end- stage renal disease dialysis dependent. Also received 1 dose of Zyvox which is discontinued due to suspected interaction with Cymbalta resulting in myoclonic jerks, tremors, altered mental status. Currently he is started on 04/08/17 daptomycin at 680 mg daily . Plan: Await urine culture sensitivities. continue daptomycin renaly dose adjusted as per pharmacy to 680mg [id number]. Patient will be treated for total of 7 days (last dose on 04/14/17) (3) Pneumonia Status: Acute Assessment and plan: CXr shows cardiomegaly, pulmonary congestion, bilateral infiltrates. tracheostomy, ventilator depenedent patient presented with increasing O2 reuirements, increasing secretions, and hypoxia In February patient was hospitalized at [facility]. CT chest 03/09 showed left lung total atelectasis and loculated effusions. At that time he was diagnosed with multifocal pneumonia. CXR 04/03/17 shows interval improvement from 03/09/17 ( complete opacification of left hemithorax, pulmonary vascular congestion). Initially patient was started on vancomycin and cefepime Vancomycin was discontinued due to Patient history of end-stage renal disease, dialysis dependent. Cefepime 1000mg daily was continued (day 6). Sputum culture grew Serratia marcescens and Pseudomonas aeruginosa (resistant to levaquin). both sensitive to cefepime all blood cultres negative x6 Levaquin was added to antibiotic regimen. but was discontinued after one dose also started on daptomycin for VRE (patient failed zyvox due to suspected interaction with cymbalta caused AMS, tremors, myoclonic jerks). plan: continue cefepime 1000mg daily total 10 days (started on 04/03/17) renally dosed as per pharmacy. Repeat chest x-ray Qualifiers: Pneumonia type: due to unspecified organism Laterality: left Lung location: lower lobe of lung Qualified Code(s): J18.1 - Lobar pneumonia, unspecified organism (4) Acute respiratory failure Status: Acute Assessment and plan: 2nd to PNA, systolic chf exacerbation management of chf as per primary plan as above. continue duonebs, symbicort. Qualifiers: Respiratory failure complication: hypoxia and hypercapnia Qualified Code(s) : J96.01 - Acute respiratory failure with hypoxia; J96.02 - Acute respiratory failure with hypercapnia; J96.02 - Acute respiratory failure with hypercapnia; J96.02 - Acute respiratory failure with hypercapnia (5) End stage renal disease on dialysis Status: Chronic Assessment and plan: on dialysis nehrology following (6) Acute bronchitis due to Rhinovirus Status: Acute Assessment and plan: RIP + for rhinovirus continue supporive measures including duonebs, symbicort. (7) Pressure ulcer of back Status: Acute Assessment and plan: dressed no discharge change bed position Q2h as per primary Qualifiers: Pressure ulcer stage: stage 2 Qualified Code(s): L89.102 - Pressure ulcer of unspecified part of back, stage 2 (8) Acute on chronic systolic (congestive) heart failure Status: Acute Assessment and plan: managment as per primary (9) Hyperkalemia Status: Resolved (10) AML (acute myeloid leukemia) Status: Acute Assessment and plan: as per primary Qualifiers: Leukemia Active/Remission status: in remission Qualified Code(s): C92.01 - Acute myeloblastic leukemia, in remission; C92.61 - Acute myeloid leukemia with [id number] in remission; C92.A1 - Acute myeloid leukemia with multilineage dysplasia, in remission (11) Anemia in chronic renal disease Status: Acute Assessment and plan: as per primary and nephrology Qualifiers: Chronic kidney disease stage: on chronic dialysis Qualified Code(s): N18.6 - End stage renal disease; D63.1 - Anemia in chronic kidney disease; D63.1 - Anemia in chronic kidney disease; Z99.2 - Dependence on renal dialysis; Z99.2 - Dependence on renal dialysis; Z99.2 - Dependence on renal dialysis; Z99.2 - Dependence on renal dialysis (12) DVT prophylaxis Status: Acute Assessment and plan: heparin SQ. (13) Abdominal distention Status: Acute Assessment and plan: Etiology not clear. Recommend a KUB (14) Erythema of lower extremity Status: Acute Assessment and plan: Sure this is cellulitis versus venous stasis dermatitis I believe this is venous stasis dermatitis Either way patient is on broad-spectrum antibiotics including daptomycin and cefepime Infectious Disease HPI - Data of Consult Patient: new to practice Consult date: 04/08/17 Requesting Physician: Froilan Dorantes MD Primary Care Provider: Eduard Chapin MD - Consult Narrative Reason for consult: VRE UTI History of present illness: Mr. Brian is a 46 year old male transfer from [facility] afer being found hypoxic at his [facility] on 04/03/17. Consult is placed n 04/08/17 for antibiotic guidance of VRE. Today patient is following simple commands but is nonverbal. Patient has a history of tracheostomy with ventilator dependence (3 months ago) at [facility] but unknown at this point the indication. Patient was afebrile, tachycardic, tachypneic, ventilator dependent requiring 100% FIO2. Chest x-ray showed evidence of pulmonary congestion, cardiomegaly and possible bilateral infiltrates. On admission patient had leukocytosis of 19.1, predominately neutrophils, tachycardia, tachypnea. Lactic Acidosis. And had blood cultures 4 (04/03) negative, negative influenza screening, sputum culture on 04/04 and growing Pseudomonas aeruginosa and Serratia marcescens. Urine culture 2 growing enterococcus. And repeat blood cultures on that are preliminarily negative. Respiratory interstitial panelist was positive for rhinovirus. Patient has a history of VRE. Urine culture grew enterococcus on (sensitivities are pending). Due to hypoxia, increasing FiO2 requirement, CXR findings, patient was started on vancomycin and cefepime for suspected PNA on 04/03/17. Vancomycin was d/c as per recommendations for nephrology as patient is dialysis dependent ESRD (TTS dialyzes at [facility]). When urine cultures grew enterococcus on 04/07 patient was started on zyvox due to previous hx of VRE, However patient developed new onset tremors, myoclonic jerks, altered mental status which was thought to be an interaction to Zyvox and Cymbalta. Both Zyvox and Cymbalta were discontinued and patient was started on daptomycin 04/09/2017. Patient has been on cefepime for 6 days now. Has received 1 dose of vancomycin and also one dose of Levaquin. His leukocytosis has resolved. He has been afebrile. And he continues to be tachycardic.He follows simple commands this morning but is non-verbal with eyelid and mouth fasciculation. CC: Froilan Dorantes MD Past Med Surg Social Fam HX - Past Medical History Medical history: arthritis, CHF, COPD, diabetes, dialysis, hyperlipidemia, hypertension, renal disease, other Psychiatric history: anxiety - Past Surgical History Surgical History: hip replacement, tracheostomy - Social History Smoking Status: Former smoker Smokeless Tobacco Status: No Alcohol use: none Drug use: none - Family History Mother Living Status: Still Living Father Living Status: Still Living Infectious Disease-CN:Meds Acetaminophen [Tylenol 325mg SUPP] 325 mg RC Q6H PRN 04/03/17 [History] Albuterol Neb [Proventil Neb] 2.5 mg IH Q4H PRN 04/03/17 [History] Azithromycin [Zithromax] 250 mg GTUBE MOWEFR 04/03/17 [History] Bisacodyl [Dulcolax] 10 mg RC HS PRN 04/03/17 [History] Calcitriol 0.5 mcg GTUBE FR 04/03/17 [History] Carvedilol [Coreg] 6.25 mg GTUBE BIDWM 04/03/17 [History] DULoxetine [Cymbalta] 20 mg GTUBE DAILY 04/03/17 [History] Dapsone 100 mg GTUBE DAILY 04/03/17 [History] Diphenhydramine HCl [Restfully Sleep] 12.5 mg GTUBE Q6H PRN 04/03/17 [History] Docusate [Colace] 100 mg GTUBE DAILY PRN 04/03/17 [History] Esomeprazole Magnesium [Nexium] 40 mg GTUBE DAILY 04/03/17 [History] Folic Acid/Vit Bcomp,C [Renal-Kenyon Tablet] 0.8 mg GTUBE DAILY 04/03/17 [History] Furosemide [Lasix] 80 mg GTUBE BID 04/03/17 [History] Hydrophilic Wound Dress Paste 1 appl TP BID 04/03/17 [History] Insulin Regular Human [HumuLIN R] 1 - 5 unit SQ TIDAC 04/03/17 [History] LORazepam [Ativan] 0.5 mg PO Q6H PRN 04/03/17 [History] Levothyroxine [Synthroid] 88 mcg GTUBE 0630 04/03/17 [History] Midodrine HCl 10 mg GTUBE TID 04/03/17 [History] Mirtazapine [Remeron] 30 mg GTUBE HS 04/03/17 [History] Ondansetron HCl [Zofran] 4 mg GTUBE Q4H PRN 04/03/17 [History] Oxycodone HCl 15 mg GTUBE Q4H PRN 04/03/17 [History] Polyethylene Glycol [Polyox Wsr-301] 17 gm GTUBE DAILY PRN 04/03/17 [History] Polyvinyl Alcohol [Artificial Tears] 1 drop BOTH EYES Q4H PRN 04/03/17 [History] Posaconazole [Noxafil] 200 mg GTUBE Q8H 04/03/17 [History] PredniSONE [Deltasone] 30 mg GTUBE DAILY 04/03/17 [History] Sennosides [Senna] 17.2 mg GTUBE BID 04/03/17 [History] Sodium Chloride for inhalation [Hyper-Jorge] 4 ml IH Q4H PRN 04/03/17 [History] Zinc Oxide/Petrolatum, Yellow [Critic-Aid Skin Paste] 1 appl TP BID 04/03/17 [ History] valACYclovir [Valtrex] 500 mg GTUBE DAILY 04/03/17 [History] 3 Allergy/AdvReac Type Severity Reaction Status Date / Time Amoxicillin Allergy Hives Verified 03/09/17 14:44 aspirin Allergy Hives Verified 03/09/17 14:44 ROS unobtainable: due to mental status (Patient only responds to simple verbal commands. Unable to speak.) Exam - Constitutional Vitals: Temp Pulse Resp BP Pulse Ox 98.3 F 113 18 122/65 98 04/09/17 08:05 04/09/17 08:05 04/09/17 08:05 04/09/17 08:05 04/09/17 08:05 - Additional findings Additional findings: General: Obese male. Fasciculations of lips, tongues, eyes. Mild distress. HEENT: Head atraumatic, normocephalic, absent lymphadenopathy Heart: Sinus tachycardia Lungs: Clear to auscultation anteriorly. Tracheostomy on ventilator sounds wet. Abdomen: Soft nontender, nondistended positive bowel sounds Skin: Bilateral lower extremity erythema likely secondary to venous stasis. urogenital: Chronic Maza in place. No evidence of erythema. Back: Patient is to stage II pressure ulcers which are dressed. Extremities: Bilateral lower extremity pedal edema, erythema up to knee. With weeping Neuro: Unable to do neuro examination due to patient's mental status. He is following simple commands. He is nonverbal. He has fasciculations of his eyes and lips and tongues. Vascular: Pedal and radial pulses 2 out of 4 Infectious Disease CN: Results - Labs CBC & Chem 7: 04/09/17 06:01 04/09/17 06:01 Cultures: Cultures 04/03/17 13:35 Blood Culture - Final Peripheral Venipuncture No growth. 04/03/17 13:35 Blood Culture - Final Peripheral Venipuncture No growth. 04/07/17 12:00 Blood Culture - Preliminary Central Venous Catheter No growth. 04/07/17 12:00 Blood Culture - Preliminary Peripheral Venipuncture No growth. 04/07/17 11:45 Urine Culture - Preliminary Urine,[place] Enterococcus faecium 04/06/17 15:05 Urine Culture - Final Urine,[place] Enterococcus faecium 04/04/17 14:00 Sputum Culture - Final Sputum Pseudomonas aeruginosa Serratia marcescens Serology: Serology 04/07/17 04/05/17 04/04/17 Range/Units 11:45 14:20 04:02 Urine Color Yellow Yellow (Yellow) Urine Clarity Cloudy A Cloudy A (Clear) Urine pH 6.0 6.5 (5.0-8.0) pH Units Ur Specific Lyons 1.018 1.012 (1.010-1.025) Urine Protein >=300 H >=300 H (Neg-Trace) mg/dL Urine Glucose (UA) 100 H 100 H (Normal) mg/dL Urine Ketones Trace H Negative (Negative) mg/dL Urine Blood Large H Moderate H (Negative) Urine Nitrite Negative Negative (Negative) Urine Bilirubin Negative Negative (Negative) Urine Urobilinogen Normal Normal (Normal) mg/dL Ur Leukocyte Esterase Moderate H Small H (Negative) Urine Microscopic RBC TNTC H 5-15 H (0-3) per hpf Urine Microscopic WBC TNTC H TNTC H (0-3) per hpf Ur Squamous Epith Cells Moderate H Moderate H (None-Few) per lpf Urine Bacteria Many H Few (None-Few) per hpf Hyaline Casts None Seen Few (None-Few) per lpf Ur Culture Indicated? YES A (NO) Chlamy pneumoniae PCR Not Detected (Not Detect) Adenovirus (PCR) Not Detected (Not Detect) B. pertussis DNA (PCR) Not Detected (Not Detect) B.parapertussis DNA PCR Not Detected (Not Detect) Coronavirus OC43 (PCR) Not Detected (Not Detect) Coronavirus HKU1 (PCR) Not Detected (Not Detect) Coronavirus 229E (PCR) Not Detected (Not Detect) Coronavirus NL63 (PCR) Not Detected (Not Detect) Hep Bs Antigen (Nonreactive) Hep Bs Antibody mIU/mL Human Metapneumovir PCR Not Detected (Not Detect) Influenza A (H1) PCR Not Detected (Not Detect) Influ A (H1N1/09) PCR Not Detected (Not Detect) Influenza A (H3) PCR Not Detected (Not Detect) Influenza A Untype (PCR) Not Detected (Not Detect) Influenza Type B (PCR) Not Detected (Not Detect) M.pneumoniae DNA (PCR) Not Detected (Not Detect) Parainfluenza 1 (PCR) Not Detected (Not Detect) Parainfluenza 2 (PCR) Not Detected (Not Detect) Parainfluenza 3 (PCR) Not Detected (Not Detect) Parainfluenza 4 (PCR) Not Detected (Not Detect) RSV (PCR) Not Detected (Not Detect) Entero/Rhino (PCR) DETECTED A (Not Detect) 04/03/17 Range/Units 13:13 Urine Color (Yellow) Urine Clarity (Clear) Urine pH (5.0-8.0) pH Units Ur Specific Lyons (1.010-1.025) Urine Protein (Neg-Trace) mg/dL Urine Glucose (UA) (Normal) mg/dL Urine Ketones (Negative) mg/dL Urine Blood (Negative) Urine Nitrite (Negative) Urine Bilirubin (Negative) Urine Urobilinogen (Normal) mg/dL Ur Leukocyte Esterase (Negative) Urine Microscopic RBC (0-3) per hpf Urine Microscopic WBC (0-3) per hpf Ur Squamous Epith Cells (None-Few) per lpf Urine Bacteria (None-Few) per hpf Hyaline Casts (None-Few) per lpf Ur Culture Indicated? (NO) Chlamy pneumoniae PCR (Not Detect) Adenovirus (PCR) (Not Detect) B. pertussis DNA (PCR) (Not Detect) B.parapertussis DNA PCR (Not Detect) Coronavirus OC43 (PCR) (Not Detect) Coronavirus HKU1 (PCR) (Not Detect) Coronavirus 229E (PCR) (Not Detect) Coronavirus NL63 (PCR) (Not Detect) Hep Bs Antigen Nonreactive (Nonreactive) Hep Bs Antibody 26.47 mIU/mL Human Metapneumovir PCR (Not Detect) Influenza A (H1) PCR (Not Detect) Influ A (H1N1/09) PCR (Not Detect) Influenza A (H3) PCR (Not Detect) Influenza A Untype (PCR) (Not Detect) Influenza Type B (PCR) (Not Detect) M.pneumoniae DNA (PCR) (Not Detect) Parainfluenza 1 (PCR) (Not Detect) Parainfluenza 2 (PCR) (Not Detect) Parainfluenza 3 (PCR) (Not Detect) Parainfluenza 4 (PCR) (Not Detect) RSV (PCR) (Not Detect) Entero/Rhino (PCR) (Not Detect) - VTE Documentation of Mechanical Device: Venous foot pump, device Consult Discharge Plan - Plan Referrals: Eduard Chapin MD [Primary Care Provider] - - Attending Attestation I examined this patient and my medical decision-making was reviewed with the Resident Physician. I agree with the documented findings, disposition and treatment plan as described except to the extent set forth below. This is an addendum to original report dictated by resident physician. Please refer to residents note for full detail. 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 Patient apparently was having worsening hypoxia requiring higher FiO2, copious amount of purulent secretions from the trach. Patient was evaluated and was noted to be septic with 2 SIRS criteria on admission including tachycardia, leukocytosis with neutrophilic predominance but no fever. Imaging to feel possible pneumonia. Sputum cultures grew Serratia and pseudomonas aeruginosa. Patient also has respiratory infectious panel done which was positive for rhinovirus. A urine was obtained and it was positive for enterococci facieum likely VRE. Patient was started on cefepime and was given Zyvox on Friday and the Cymbalta was DCd but patient had what looked like seizures and they were concern for serotonin syndrome. Patient switched to daptomycin and cefepime. Currently patient laying in bed nursing tells me he actually better than his baseline he open his eyes followed some commands with his hands for me and nodded when asked questions. Patient physical exam is remarkable for fasciculations of the tongue, patient has a trach, he is abdomen is pretty distended and bowel sounds are hypoactive, lungs expanding symmetrically with rhonchi audible in both lung mock. Patient also has bilateral lower extremity erythema which looks like venous stasis. At this point I agree with broad-spectrum antibiotics, we will dose adjust daptomycin based on the creatinine clearance and dose adjust the cefepime also. Not sure whether patient is having distended abdomen, patient had 1 small bowel movement yesterday as per nursing staff. Well defer to the PCP to see if they want to get a KUB and if theyre worried about an ileus. Also instructed nursing staff to ask the sister who is the DPO a to see why the patient has chronic respiratory failure and vent support since its not mentioned anywhere in the record. I personally called [facility] and spoke with medical records and spoke with the ENT doctor who changed his trach a month ago and he also doesnt know why the patient has chronic respiratory failure. I believe family might be able to give some answers. CK level has been checked.
--- NOTE | 2017-04-09 10:01 | Internal Med Progress Note ---
Date of Encounter: 04/09/17 Time of Encounter: 09:59 - Subjective Interval history: Interval changes: 04/08/17: Today he is very somnulent. He is new to me but RN states this is an acute change since yesterday. Overnight the bibiana HAMMOND was called to see him for tremors and myoclonic jerks as well as aphasia. Zyvox had been started yesterday afternoon and the bibiana HAMMOND was concerned for and interaction with Cymbalt. So both his Cymbalta and Zyvox were held. Cogentin was started last night. A Head CT was done and did not show acute changes. 04/09/2016: He remains very somnulent and respond to some verbal commands and to tactile stimuli. Physical exam: See below Assessment and Plan: Acute change in mental status and possible new onset tremors/myoclonic jerks: Head scan neg for acute process.Neurology consulted and EEG ordered per Neurlogy request. Study pending. Possible drug interaction Zyvox and Cymbolta. 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 Sputum cultures positive for Serratia and P. aerug. Concern for PNA. Cefepime and Levaquin were initially started at time of admission. Levaquin d/c'd. COPD (chronic obstructive pulmonary disease) Inhaled albuterol and ipratropium. Acute bronchitis due to Rhinovirus Supportive care. VRE UTI: Zyvox stopped and Daptomycin started. ID consulted for abx guidance Appreciate ID assistance. End stage renal disease on dialysis Intermittent hemodialysis per nephrology. Avoid nephrotoxins due to possible recovery of kidney function per nephrology. Continue with Lasix. Anemia in chronic renal disease Maintain hemoglobin above 8. S/p transfusion of 1 unit PRBC T2DM (type 2 diabetes mellitus) Insulin sliding scale. Diabetic diet. Acute on chronic systolic (congestive) heart failure Has a history of chronic systolic heart failure. Initial chest x-ray has evidence of pulmonary edema and pleural effusion.. He has 2+ edema. We will obtain echocardiogram. Continue with Lasix. Daily weights. Strict I/O. Secondary thrombocytopenia He has thrombocytopenia platelet, was 23 at platelet transfusion on and increased to 40 again back to 25 but he does not have any acute bleeding continue to monitor. He had a AML. (11) Urinary tract infection Current Visit: Yes Status: Acute Assessment and plan: Patient has a history of VRE in the urine. We will add Zyvox for coverage of VRE. - Constitutional Vitals: Temp Pulse Resp BP Pulse Ox 98.3 F 113 18 122/65 98 04/09/17 08:05 04/09/17 08:05 04/09/17 08:05 04/09/17 08:05 04/09/17 08:05 General appearance: Present: no acute distress - Head Head exam: Present: atraumatic, normocephalic - Eye Eye exam: Present: nystagmus, conjuntiva pink, sclera anicteric Pupils: Present: PERRL. Absent: unequal - Neck Neck exam general surgery: Present: supple, trachea midline. Absent: lymphadenopathy - Respiratory Respiratory exam: Present: CTAB. Absent: accessory muscle use, rales, rhonchi, wheezes - Cardiovascular Cardiovascular exam: Present: RRR, +S1, +S2. Absent: diastolic murmur, gallop, rubs, systolic murmur - GI/Abdominal GI/Abdominal exam: Present: normal bowel sounds, soft, no peritoneal signs. Absent: distended, tenderness - Extremities Exam Extremities exam: Present: warm, radial pulses palpable and symmetrical. Absent : calf tenderness, cyanotic, pedal edema - Neurological Exam Neurological exam: Present: altered, CN II-XII intact, no focal deficits. Absent: alert, oriented X3, pronater drift, facial droop, speech deficit - Skin Skin exam: Present: dry, erythema, intact, rash Internal Medicine: Result - Labs CBC & Chem 7: 04/09/17 06:01 04/09/17 06:01 Labs: Short CBC 04/09/17 Range/Units 06:01 WBC 10.6 (4.3-11.1) K/mcL Hgb 8.2 L (12.9-16.9) g/dL Hct 26.4 L (37.5-50.1) % Plt Count 30 L* (140-400) K/mcL Neutrophils # 7.6 (1.6-8.9) K/mcL BMP 04/08/17 04/09/17 04:09 06:01 Sodium 135 L 135 L Potassium 3.9 4.6 Chloride 97 L 97 L Carbon Dioxide 27 22 L BUN 29 H 38 H Creatinine 2.62 H 3.51 H Glucose 145 H 116 H Calcium 8.2 L 8.3 L Liver Function 04/09/17 Range/Units 06:01 Total Bilirubin 1.1 H (0.3-1.0) mg/dL AST 14 (13-39) Units/L ALT 19 (7-52) Units/L Alkaline Phosphatase 209 H (34-104) Units/L Albumin 2.5 L (3.5-5.7) g/dL - ABG Interpretation ABG results: ABG ABG pH 7.40 pH Units (7.32-7.45) 04/04/17 10:40 ABG pCO2 52 mmHg (35-45) H 04/04/17 10:40 ABG pO2 87 mmHg (85-104) 04/04/17 10:40 ABG O2 Saturation 96 % (95-98) 04/04/17 10:40 PT/INR, D-dimer PT 11.5 Seconds (9.4-12.1) 04/03/17 13:13 - VTE Documentation of Mechanical Device: Venous foot pump, device Consult Discharge Plan - Plan Referrals: Eduard Chapin MD [Primary Care Provider] -
[2017-04-09] MEDS: Budesonide/Formoterol 160/4.5 MDI IH SCH ×2 (10:21→22:13)
[2017-04-09] MEDS ORDERED: Dextrose Gel 15 GM/37.5 ML TUBE PO PRN ×2 (11:48)
[2017-04-09] MEDS ORDERED: *HR* Dextrose 50 % in Water (Syg) 50 ML SYRINGE IVP PRN (11:48)
[2017-04-09] MEDS ORDERED: D5% in Water 1,000 ML IVC PRN (11:48)
[2017-04-09] MEDS ORDERED: *HR* LORazepam 2 MG/ML VIAL IVP STA (12:13)
[2017-04-09] MEDS ORDERED: *HR* LORazepam 2 MG/ML VIAL ONE (12:20)
--- NOTE | 2017-04-09 13:09 | Neurology - Consult Note ---
<Phil Doll - Last Filed: 04/09/17 13:06> Date of Encounter: 04/09/17 Time of Encounter: 13:06 Assessment and Plan (1) Acute encephalopathy Current Visit: Yes Status: Acute Differential is broad including metabolic encephalopathy due to underlying infection and/or medications, seizure activity, acute CVA, [employer] infections. Tardive dyskinesia and serotonin syndrome are also considered but felt to be less likely. Given the patient's facial and oral tremors as well as vertical nystagmus concerned for seizure activity is high. Will obtain stat EEG. Given that the patient would only squeeze with his right hand, although he only did this once, it is unclear if he is just unable to follow commands or if these represents focal neurologic deficits therefore we will obtain an MRI. Agree with infectious disease consult and continue antibiotics for underlying infection. We will continue to follow closely. (2) Continuous tremor Current Visit: Yes Status: Acute History of Present Illness Chief complaint: AMS, tremor HPI: Mr. Brian is a 46 year old male with history of chronic tracheostomy, depression was initially admitted for acute on chronic respiratory failure. During his hospitalization he was found to have pneumonia as well as UTI. On day 4 of his admission, 2 days ago the patient was found to have tremors, myoclonic jerks and altered level of consciousness. Neurology was consulted today for continuation of the symptoms. Patient is altered and unable to respond and participated in history taking. He does not appear to be in any acute distress. He will open his eyes to verbal commands and did squeeze my hand one time but otherwise would not follow commands. He would withdraw from painful stimuli. Past Med Surg Social Fam HX - Past Medical History Medical history: arthritis, CHF, COPD, diabetes, dialysis, hyperlipidemia, hypertension, renal disease, other Psychiatric history: anxiety - Past Surgical History Surgical History: hip replacement, tracheostomy - Social History Smoking Status: Former smoker Smokeless Tobacco Status: No Alcohol use: none Drug use: none - Family History Mother Living Status: Still Living Father Living Status: Still Living Medications and Allergies Acetaminophen [Tylenol 325mg SUPP] 325 mg RC Q6H PRN 04/03/17 [History] Albuterol Neb [Proventil Neb] 2.5 mg IH Q4H PRN 04/03/17 [History] Azithromycin [Zithromax] 250 mg GTUBE MOWEFR 04/03/17 [History] Bisacodyl [Dulcolax] 10 mg RC HS PRN 04/03/17 [History] Calcitriol 0.5 mcg GTUBE FR 04/03/17 [History] Carvedilol [Coreg] 6.25 mg GTUBE BIDWM 04/03/17 [History] DULoxetine [Cymbalta] 20 mg GTUBE DAILY 04/03/17 [History] Dapsone 100 mg GTUBE DAILY 04/03/17 [History] Diphenhydramine HCl [Restfully Sleep] 12.5 mg GTUBE Q6H PRN 04/03/17 [History] Docusate [Colace] 100 mg GTUBE DAILY PRN 04/03/17 [History] Esomeprazole Magnesium [Nexium] 40 mg GTUBE DAILY 04/03/17 [History] Folic Acid/Vit Bcomp,C [Renal-[place]yon Tablet] 0.8 mg GTUBE DAILY 04/03/17 [History] Furosemide [Lasix] 80 mg GTUBE BID 04/03/17 [History] Hydrophilic Wound Dress Paste 1 appl TP BID 04/03/17 [History] Insulin Regular Human [HumuLIN R] 1 - 5 unit SQ TIDAC 04/03/17 [History] LORazepam [Ativan] 0.5 mg PO Q6H PRN 04/03/17 [History] Levothyroxine [Synthroid] 88 mcg GTUBE 0630 04/03/17 [History] Midodrine HCl 10 mg GTUBE TID 04/03/17 [History] Mirtazapine [Remeron] 30 mg GTUBE HS 04/03/17 [History] Ondansetron HCl [Zofran] 4 mg GTUBE Q4H PRN 04/03/17 [History] Oxycodone HCl 15 mg GTUBE Q4H PRN 04/03/17 [History] Polyethylene Glycol [Polyox Wsr-301] 17 gm GTUBE DAILY PRN 04/03/17 [History] Polyvinyl Alcohol [Artificial Tears] 1 drop BOTH EYES Q4H PRN 04/03/17 [History] Posaconazole [Noxafil] 200 mg GTUBE Q8H 04/03/17 [History] PredniSONE [Deltasone] 30 mg GTUBE DAILY 04/03/17 [History] Sennosides [Senna] 17.2 mg GTUBE BID 04/03/17 [History] Sodium Chloride for inhalation [Hyper-Jorge] 4 ml IH Q4H PRN 04/03/17 [History] Zinc Oxide/Petrolatum, Yellow [Critic-Aid Skin Paste] 1 appl TP BID 04/03/17 [ History] valACYclovir [Valtrex] 500 mg GTUBE DAILY 04/03/17 [History] 3 Allergy/AdvReac Type Severity Reaction Status Date / Time Amoxicillin Allergy Hives Verified 03/09/17 14:44 aspirin Allergy Hives Verified 03/09/17 14:44 ROS unobtainable: due to mental status All Systems: A 10-system review of systems was performed and is negative for pertinent findings except as documented above in the HPI. Physical Examination - Vital Signs Vital Signs: Initial Vital Signs Resp BP Pulse Ox 20 92/62 99 04/03/17 11:10 04/03/17 11:10 04/03/17 11:10 - Constitutional General appearance: acutely ill - Neurologic Sensorimotor examination: fasciculations Detailed motor examination: other (Unable to assess) Detailed sensory examination: other (Unable to assess) Reflex and gait examination: other (Unable to assess) Reflexes: Biceps: 0, Brachioradialis: 0, Patella: 0, Achilles: 0 Mental Status Examination: awake, opens eyes to voice, opens eyes to noxious stimulation, makes eye contact, follows simple commands, grimmacing Cranial nerve examination: vertical nystagmus, tongue fasiculations Results - Laboratory Findings CBC and BMP: 04/09/17 06:01 04/09/17 06:01 Abnormal lab findings: Abnormal lab results RBC 2.67 M/mcL (4.19-5.50) L 04/09/17 06:01 Hgb 8.2 g/dL (12.9-16.9) L 04/09/17 06:01 Hct 26.4 % (37.5-50.1) L 04/09/17 06:01 MCHC 31.1 g/dL (31.6-35.5) L 04/09/17 06:01 RDW 21.6 % (11.5-14.5) H 04/09/17 06:01 Plt Count 30 K/mcL (140-400) L* 04/09/17 06:01 Monocytes # 1.4 K/mcL (0.0-1.3) H 04/09/17 06:01 Nucleated RBCs/100 WBC 0.3 /100 WBC (0) H 04/09/17 06:01 Platelet Estimate Slight Decrease (Normal) L 04/07/17 04:46 Immature Plt Fraction 13.3 % (1.1-6.1) H 04/09/17 06:01 Polychromasia 1+ (Not Present) A 04/07/17 04:46 Hypochromasia Present (Not Present) A 04/04/17 04:02 Anisocytosis 3+ (Not Present) A 04/07/17 04:46 Microcytosis Present (Not Present) A 04/04/17 04:02 Macrocytosis Present (Not Present) A 04/04/17 04:02 Spherocytes 1+ (Not Present) A 04/04/17 04:02 Target Cells 1+ (Not Present) A 04/04/17 04:02 Acanthocytes (Spur) 1+ (Not Present) A 04/04/17 04:02 ABG pCO2 52 mmHg (35-45) H 04/04/17 10:40 ABG HCO3 32 mEq/L (21-27) H 04/04/17 10:40 ABG Total CO2 33 mEq/L (20-26) H 04/04/17 10:40 ABG Base Excess 6 mEq/L (-2 to 3) H 04/04/17 10:40 Sodium 135 mEq/L (136-145) L 04/09/17 06:01 Chloride 97 mEq/L (98-107) L 04/09/17 06:01 Carbon Dioxide 22 mEq/L (23-29) L 04/09/17 06:01 BUN 38 mg/dL (6-20) H 04/09/17 06:01 Creatinine 3.51 mg/dL (0.70-1.30) H 04/09/17 06:01 Est GFR ( Amer) 23 (> 60) L 04/09/17 06:01 Est GFR (Non-Af Amer) 19 (> 60) L 04/09/17 06:01 Glucose 116 mg/dL (70-105) H 04/09/17 06:01 POC Glucose 148 (58-89) H 04/08/17 16:10 Calcium 8.3 mg/dL (8.6-10.3) L 04/09/17 06:01 Phosphorus 5.1 mg/dL (2.7-4.5) H 04/07/17 04:46 Iron 17 mcg/dL (65-175) L 04/06/17 03:30 % Saturation 11 % (20-55) L 04/06/17 03:30 Transferrin 107 mg/dL (203-362) L 04/06/17 03:30 Ferritin > 1350 ng/ml (20-250) H 04/06/17 03:30 Total Bilirubin 1.1 mg/dL (0.3-1.0) H 04/09/17 06:01 Alkaline Phosphatase 209 Units/L (34-104) H 04/09/17 06:01 Creatine Kinase < 10 Units/L (30-223) L 04/08/17 04:09 Serum Total Protein 5.3 g/dL (6.4-8.9) L 04/09/17 06:01 Albumin 2.5 g/dL (3.5-5.7) L 04/09/17 06:01 Albumin/Globulin Ratio 0.9 (1.1-2.2) L 04/09/17 06:01 25-OH Vitamin D Total 13 ng/mL (30-80) L 04/06/17 03:30 Folate 28.0 ng/mL (3.0-16.0) H 04/06/17 08:43 Free T3 1.50 pg/mL (2.50-3.90) L 04/03/17 13:13 PTH Intact 97.8 pg/ml (10.0-65.0) H 04/06/17 03:30 Urine Clarity Cloudy (Clear) A 04/07/17 11:45 Urine Protein >=300 mg/dL (Neg-Trace) H 04/07/17 11:45 Urine Glucose (UA) 100 mg/dL (Normal) H 04/07/17 11:45 Urine Ketones Trace mg/dL (Negative) H 04/07/17 11:45 Urine Blood Large (Negative) H 04/07/17 11:45 Ur Leukocyte Esterase Moderate (Negative) H 04/07/17 11:45 Urine Microscopic RBC TNTC per hpf (0-3) H 04/07/17 11:45 Urine Microscopic WBC TNTC per hpf (0-3) H 04/07/17 11:45 Ur Squamous Epith Cells Moderate per lpf (None-Few) H 04/07/17 11:45 Urine Bacteria Many per hpf (None-Few) H 04/07/17 11:45 Ur Culture Indicated? YES (NO) A 04/07/17 11:45 Entero/Rhino (PCR) DETECTED (Not Detect) A 04/04/17 04:02 Consult Discharge Plan - Plan Referrals: Eduard Chapin MD [Primary Care Provider] - <James Perdomo I - Last Filed: 04/10/17 09:08> Date of Encounter: 04/09/17 History of Present Illness HPI: Mr. Brian is a 46 year old male All Systems: A 10-system review of systems was performed and is negative for pertinent findings except as documented above in the HPI. Physical Examination - Vital Signs Vital Signs: Initial Vital Signs Resp BP Pulse Ox 20 92/62 99 04/03/17 11:10 04/03/17 11:10 04/03/17 11:10 Results - Laboratory Findings CBC and BMP: 04/09/17 06:01 04/09/17 06:01 Abnormal lab findings: Abnormal lab results RBC 2.67 M/mcL (4.19-5.50) L 04/09/17 06:01 Hgb 8.2 g/dL (12.9-16.9) L 04/09/17 06:01 Hct 26.4 % (37.5-50.1) L 04/09/17 06:01 MCHC 31.1 g/dL (31.6-35.5) L 04/09/17 06:01 RDW 21.6 % (11.5-14.5) H 04/09/17 06:01 Plt Count 30 K/mcL (140-400) L* 04/09/17 06:01 Monocytes # 1.4 K/mcL (0.0-1.3) H 04/09/17 06:01 Nucleated RBCs/100 WBC 0.3 /100 WBC (0) H 04/09/17 06:01 Platelet Estimate Slight Decrease (Normal) L 04/07/17 04:46 Immature Plt Fraction 13.3 % (1.1-6.1) H 04/09/17 06:01 Polychromasia 1+ (Not Present) A 04/07/17 04:46 Hypochromasia Present (Not Present) A 04/04/17 04:02 Anisocytosis 3+ (Not Present) A 04/07/17 04:46 Microcytosis Present (Not Present) A 04/04/17 04:02 Macrocytosis Present (Not Present) A 04/04/17 04:02 Spherocytes 1+ (Not Present) A 04/04/17 04:02 Target Cells 1+ (Not Present) A 04/04/17 04:02 Acanthocytes (Spur) 1+ (Not Present) A 04/04/17 04:02 ABG pCO2 52 mmHg (35-45) H 04/04/17 10:40 ABG HCO3 32 mEq/L (21-27) H 04/04/17 10:40 ABG Total CO2 33 mEq/L (20-26) H 04/04/17 10:40 ABG Base Excess 6 mEq/L (-2 to 3) H 04/04/17 10:40 Sodium 135 mEq/L (136-145) L 04/09/17 06:01 Chloride 97 mEq/L (98-107) L 04/09/17 06:01 Carbon Dioxide 22 mEq/L (23-29) L 04/09/17 06:01 BUN 38 mg/dL (6-20) H 04/09/17 06:01 Creatinine 3.51 mg/dL (0.70-1.30) H 04/09/17 06:01 Est GFR ( Amer) 23 (> 60) L 04/09/17 06:01 Est GFR (Non-Af Amer) 19 (> 60) L 04/09/17 06:01 Glucose 116 mg/dL (70-105) H 04/09/17 06:01 POC Glucose 120 (58-89) H 04/10/17 00:32 Calcium 8.3 mg/dL (8.6-10.3) L 04/09/17 06:01 Phosphorus 5.1 mg/dL (2.7-4.5) H 04/07/17 04:46 Iron 17 mcg/dL (65-175) L 04/06/17 03:30 % Saturation 11 % (20-55) L 04/06/17 03:30 Transferrin 107 mg/dL (203-362) L 04/06/17 03:30 Ferritin > 1350 ng/ml (20-250) H 04/06/17 03:30 Total Bilirubin 1.1 mg/dL (0.3-1.0) H 04/09/17 06:01 Alkaline Phosphatase 209 Units/L (34-104) H 04/09/17 06:01 Creatine Kinase < 10 Units/L (30-223) L 04/08/17 04:09 Serum Total Protein 5.3 g/dL (6.4-8.9) L 04/09/17 06:01 Albumin 2.5 g/dL (3.5-5.7) L 04/09/17 06:01 Albumin/Globulin Ratio 0.9 (1.1-2.2) L 04/09/17 06:01 25-OH Vitamin D Total 13 ng/mL (30-80) L 04/06/17 03:30 Folate 28.0 ng/mL (3.0-16.0) H 04/06/17 08:43 Free T3 1.50 pg/mL (2.50-3.90) L 04/03/17 13:13 PTH Intact 97.8 pg/ml (10.0-65.0) H 04/06/17 03:30 Urine Clarity Cloudy (Clear) A 04/07/17 11:45 Urine Protein >=300 mg/dL (Neg-Trace) H 04/07/17 11:45 Urine Glucose (UA) 100 mg/dL (Normal) H 04/07/17 11:45 Urine Ketones Trace mg/dL (Negative) H 04/07/17 11:45 Urine Blood Large (Negative) H 04/07/17 11:45 Ur Leukocyte Esterase Moderate (Negative) H 04/07/17 11:45 Urine Microscopic RBC TNTC per hpf (0-3) H 04/07/17 11:45 Urine Microscopic WBC TNTC per hpf (0-3) H 04/07/17 11:45 Ur Squamous Epith Cells Moderate per lpf (None-Few) H 04/07/17 11:45 Urine Bacteria Many per hpf (None-Few) H 04/07/17 11:45 Ur Culture Indicated? YES (NO) A 04/07/17 11:45 Entero/Rhino (PCR) DETECTED (Not Detect) A 04/04/17 04:02 - Attending Attestation I examined this patient and my medical decision-making was reviewed with the Resident Physician on 04/09/17. I agree with the documented findings, disposition and treatment plan as described. On my clinical examination patient open eyes on verbal commands. Though he is trying to speak with difficult to understand but he seems to follow simple commands his pupils are equal and reactive extraocular movements are intact no facial asymmetry. He is moving both extremities though right upper extremity seems to be more than the left, he did have some movement in his both lower extremities but has dependent leg edema as well as ulcerations, he is able to withdraw to the deep pain all 4 extremities Considering the overall history symptoms and exam findings at this time his symptoms seems to be consistent with Generalized metabolic toxic encephalopathy. As he seems to having fluctuating neurological status. He already had EEG earlier today which I have reviewed seems to be consistent with generalized encephalopathy as well as features of triphasic waves, as commonly seen with renal and hepatic failure but no seizure activity were recorded. On the other hand definitely ischemia stroke is a possibility for which he is scheduled for an MRI will follow the results. Earlier there was concern that his symptoms could be related to the medication side effect especially those chewing type of the movement that he has been experiencing certainly that is a possibility sometimes could have introduction with antibiotics as well as with these SNRi especially in someone who was been on multiple medications and also has significant metabolic and infectious dysfunction. He has received Cogentin earlier perhaps he may continue on it. We will follow the patient with you James Perdomo MD
--- NOTE | 2017-04-09 16:14 | EEG/EMG/Oth Biometrics Report ---
EEG Procedure Report Date of procedure: 04/09/17 EEG Procedure: Routine EEG Procedure Note: Report: This EEG was acquired with standard international 10-20 electrode placement system with EKG recording. The Background activity during this EEG was replaced by diffuse background slowing in the range of delta and theta activity with predominant delta activity. Later during the recording, EEG tracing gradually evolved into higher amplitude delta activity along iwth triphasic waves noted all over, persistently. As patient was consistently moving causing a lot of electrodes artifact and also having some jerking he has received 1 mg of IV Ativan needing to study that did not cause any significant overall change though some decrease in the artifact noted later Photic stimulation produced no abnormalities. HV not performed during this study. EKG tracing showed no significant cardiac dysarrhythmia. Impression: This is a abnormal EEG due to presence of presence of background slowing, along with triphasic waves throughout the study Clinical Correlation: This EEG is consistent with diffuse cerebral dysfunction that can be seen in patients with encephalopathy, toxic/metabolic/ infectious etiologies or it can occur as an inctal phenomenon in appropriate clinical settings. Triphasic waves also noted in patient with renal and hepatic failure.Clinical correlation advised
[2017-04-09] MEDS: *HR* OxyCODONE Immed Rel 15 MG TABLET GTUBE PRN (20:25)
[2017-04-10] MEDS: Insulin LISPRO 300 UNITS/3 ML VIAL SQ SCH ×7 (00:39→23:41)
[2017-04-10] MEDS: Ipratropium/Albuterol Neb 3 ML IH SCH ×4 (04:38→22:23)
[2017-04-10] MEDS: Chlorhexidine Rinse 15 ML MOUTHWASH MM SCH ×2 (07:43→21:02)
[2017-04-10] MEDS: Furosemide 40 MG TABLET PO SCH ×2 (07:43→21:02)
[2017-04-10] MEDS: Renal Vitamin 1 MG CAPSULE PO SCH (07:43)
[2017-04-10] MEDS: Pantoprazole 40 MG VIAL IVP SCH (07:43)
[2017-04-10] MEDS: SODIUM CHLORIDE 0.9% IVPB SCH (08:27)
[2017-04-10] MEDS: DAPTOMYCIN IVPB SCH (08:27)
--- NOTE | 2017-04-10 09:01 | Infectious Disease Progress No ---
Date of Encounter: 04/10/17 Time of Encounter: 08:59 - Assessment and Plan (1) Sepsis Current Visit: Yes Status: Acute three sirs cirteria of tachycardia, leukocytosis, tachypnea. All have resolved except for tachycardia. sinus tacycardia Without lactic acidosis. Secondary to pneumonia. Sputum culture grew Pseudomonas aeruginosa and Serratia marcescens Also UTI: Urine cultures grew enterococcus. Patient has a previous history of VRE. Sensitivities are not resulted yet. Currently patient is on daptomycin 680mg daily and cefepime 1000mg Q12h Qualifiers: Sepsis type: Pseudomonas Qualified Code(s): A41.52 - Sepsis due to Pseudomonas (2) VRE (vancomycin-resistant Enterococci) infection Current Visit: Yes Status: Suspected urine culture 03/09 grew VRE: unclear what he was treated with at that time ( reviewed records from [facility]) urine culture 04/07 and 04/06 grew enterococcus awaiting sensitivities Not sure if this is a true UTI versus colonization. patient has received 1 dose of vancomycin versus discontinued due to being end- stage renal disease dialysis dependent. Also received 1 dose of Zyvox which is discontinued due to suspected interaction with Cymbalta resulting in myoclonic jerks, tremors, altered mental status. Currently he is started on 04/08/17 daptomycin at 680 mg daily . urine output tottal 200cc yesterday Plan: Await urine culture sensitivities. continue daptomycin renally dose adjusted as per pharmacy to 680mg [id number]. Patient will be treated for total of 7 days (last dose on 04/14/17) (3) Pneumonia Current Visit: Yes Status: Acute CXr shows cardiomegaly, pulmonary congestion, bilateral infiltrates. tracheostomy, ventilator depenedent (placed jan 2017 at [facility] after acute respiratory failure 2nd to influenza) patient presented with increasing O2 requirements, increasing secretions, and hypoxia In February patient was hospitalized at [facility]. CT chest 03/09 showed left lung total atelectasis and loculated effusions. At that time he was diagnosed with multifocal pneumonia. CXR 04/03/17 shows interval improvement from 03/09/17 ( complete opacification of left hemithorax, pulmonary vascular congestion). Initially patient was started on vancomycin and cefepime Vancomycin was discontinued due to Patient history of end-stage renal disease, dialysis dependent. Cefepime 1000mg daily was continued (day 6). Sputum culture grew Serratia marcescens and Pseudomonas aeruginosa (resistant to levaquin). both sensitive to cefepime all blood cultres negative x6 also started on daptomycin for VRE (patient failed zyvox due to suspected interaction with cymbalta caused AMS, tremors, myoclonic jerks). respiratory status stable in last 24 hours: FIO2 requirement at 40% plan: continue cefepime 1000mg daily total 10 days (started on 04/03/17) renally dosed as per pharmacy. Qualifiers: Pneumonia type: due to unspecified organism Laterality: left Lung location: lower lobe of lung Qualified Code(s): J18.1 - Lobar pneumonia, unspecified organism (4) Acute respiratory failure Current Visit: No Status: Acute 2nd to PNA, systolic chf exacerbation management of chf as per primary plan as above. tracheotomy palced in jan 2017 at [facility] 2nd to influenza. continue duonebs, symbicort. Qualifiers: Respiratory failure complication: hypoxia and hypercapnia Qualified Code(s) : J96.01 - Acute respiratory failure with hypoxia; J96.02 - Acute respiratory failure with hypercapnia; J96.02 - Acute respiratory failure with hypercapnia; J96.02 - Acute respiratory failure with hypercapnia (5) End stage renal disease on dialysis Current Visit: Yes Status: Chronic dialysis dependent ESRD starting jan 2017. unclear if he had CKD before hand. POA will bring records tomorrow output 200cc yesterday on dialysis nehrology following (6) Acute bronchitis due to Rhinovirus Current Visit: Yes Status: Acute RIP + for rhinovirus continue supporive measures including duonebs, symbicort. (7) Pressure ulcer of back Current Visit: Yes Status: Acute dressed no discharge change bed position Q2h as per primary Qualifiers: Pressure ulcer stage: stage 2 Qualified Code(s): L89.102 - Pressure ulcer of unspecified part of back, stage 2 (8) Acute on chronic systolic (congestive) heart failure Current Visit: Yes Status: Acute (9) AML (acute myeloid leukemia) Current Visit: Yes Status: Acute Qualifiers: Leukemia Active/Remission status: in remission Qualified Code(s): C92.01 - Acute myeloblastic leukemia, in remission; C92.61 - Acute myeloid leukemia with [id number] in remission; C92.A1 - Acute myeloid leukemia with multilineage dysplasia, in remission (10) Anemia in chronic renal disease Current Visit: Yes Status: Acute Qualifiers: Chronic kidney disease stage: on chronic dialysis Qualified Code(s): N18.6 - End stage renal disease; D63.1 - Anemia in chronic kidney disease; D63.1 - Anemia in chronic kidney disease; Z99.2 - Dependence on renal dialysis; Z99.2 - Dependence on renal dialysis; Z99.2 - Dependence on renal dialysis; Z99.2 - Dependence on renal dialysis (11) DVT prophylaxis Current Visit: Yes Status: Acute heparin sq (12) Erythema of lower extremity Current Visit: Yes Status: Acute b/l symmetric erythema of LE. no pus like discharge likely venous stasis dermatitis - Subjective Interval history: Patient is more interactive today. Tries to communicate words however difficult to understand him. He is following commands. Talk to patient's POA this morning who states that patient had tracheostomy placed at [facility] after being intubated for 2 weeks secondary to flu. Furthermore he was started on hemodialysis during that admission. Patient's POA will bring medical records tomorrow. Infect Dis PN-Objective Data - Labs CBC & Chem 7: 04/10/17 10:50 04/10/17 10:50 Labs: Laboratory Results - last 24 hr 04/08/17 04/09/17 04/09/17 19:24 08:04 16:41 POC Glucose 142 H 107 H 110 H 04/09/17 04/10/17 19:41 00:32 POC Glucose 122 H 120 H Cultures: Cultures 04/03/17 13:35 Blood Culture - Final Peripheral Venipuncture No growth. 04/03/17 13:35 Blood Culture - Final Peripheral Venipuncture No growth. 04/07/17 12:00 Blood Culture - Preliminary Central Venous Catheter No growth. 04/07/17 12:00 Blood Culture - Preliminary Peripheral Venipuncture No growth. 04/07/17 11:45 Urine Culture - Preliminary Urine,[place] Enterococcus faecium 04/06/17 15:05 Urine Culture - Final Urine,[place] Enterococcus faecium 04/04/17 14:00 Sputum Culture - Final Sputum Pseudomonas aeruginosa Serratia marcescens Serology 04/07/17 04/05/17 04/04/17 Range/Units 11:45 14:20 04:02 Urine Color Yellow Yellow (Yellow) Urine Clarity Cloudy A Cloudy A (Clear) Urine pH 6.0 6.5 (5.0-8.0) pH Units Ur Specific Douglas 1.018 1.012 (1.010-1.025) Urine Protein >=300 H >=300 H (Neg-Trace) mg/dL Urine Glucose (UA) 100 H 100 H (Normal) mg/dL Urine Ketones Trace H Negative (Negative) mg/dL Urine Blood Large H Moderate H (Negative) Urine Nitrite Negative Negative (Negative) Urine Bilirubin Negative Negative (Negative) Urine Urobilinogen Normal Normal (Normal) mg/dL Ur Leukocyte Esterase Moderate H Small H (Negative) Urine Microscopic RBC TNTC H 5-15 H (0-3) per hpf Urine Microscopic WBC TNTC H TNTC H (0-3) per hpf Ur Squamous Epith Cells Moderate H Moderate H (None-Few) per lpf Urine Bacteria Many H Few (None-Few) per hpf Hyaline Casts None Seen Few (None-Few) per lpf Ur Culture Indicated? YES A (NO) Chlamy pneumoniae PCR Not Detected (Not Detect) Adenovirus (PCR) Not Detected (Not Detect) B. pertussis DNA (PCR) Not Detected (Not Detect) B.parapertussis DNA PCR Not Detected (Not Detect) Coronavirus OC43 (PCR) Not Detected (Not Detect) Coronavirus HKU1 (PCR) Not Detected (Not Detect) Coronavirus 229E (PCR) Not Detected (Not Detect) Coronavirus NL63 (PCR) Not Detected (Not Detect) Hep Bs Antigen (Nonreactive) Hep Bs Antibody mIU/mL Human Metapneumovir PCR Not Detected (Not Detect) Influenza A (H1) PCR Not Detected (Not Detect) Influ A (H1N1/09) PCR Not Detected (Not Detect) Influenza A (H3) PCR Not Detected (Not Detect) Influenza A Untype (PCR) Not Detected (Not Detect) Influenza Type B (PCR) Not Detected (Not Detect) M.pneumoniae DNA (PCR) Not Detected (Not Detect) Parainfluenza 1 (PCR) Not Detected (Not Detect) Parainfluenza 2 (PCR) Not Detected (Not Detect) Parainfluenza 3 (PCR) Not Detected (Not Detect) Parainfluenza 4 (PCR) Not Detected (Not Detect) RSV (PCR) Not Detected (Not Detect) Entero/Rhino (PCR) DETECTED A (Not Detect) 04/03/17 Range/Units 13:13 Urine Color (Yellow) Urine Clarity (Clear) Urine pH (5.0-8.0) pH Units Ur Specific Douglas (1.010-1.025) Urine Protein (Neg-Trace) mg/dL Urine Glucose (UA) (Normal) mg/dL Urine Ketones (Negative) mg/dL Urine Blood (Negative) Urine Nitrite (Negative) Urine Bilirubin (Negative) Urine Urobilinogen (Normal) mg/dL Ur Leukocyte Esterase (Negative) Urine Microscopic RBC (0-3) per hpf Urine Microscopic WBC (0-3) per hpf Ur Squamous Epith Cells (None-Few) per lpf Urine Bacteria (None-Few) per hpf Hyaline Casts (None-Few) per lpf Ur Culture Indicated? (NO) Chlamy pneumoniae PCR (Not Detect) Adenovirus (PCR) (Not Detect) B. pertussis DNA (PCR) (Not Detect) B.parapertussis DNA PCR (Not Detect) Coronavirus OC43 (PCR) (Not Detect) Coronavirus HKU1 (PCR) (Not Detect) Coronavirus 229E (PCR) (Not Detect) Coronavirus NL63 (PCR) (Not Detect) Hep Bs Antigen Nonreactive (Nonreactive) Hep Bs Antibody 26.47 mIU/mL Human Metapneumovir PCR (Not Detect) Influenza A (H1) PCR (Not Detect) Influ A (H1N1/09) PCR (Not Detect) Influenza A (H3) PCR (Not Detect) Influenza A Untype (PCR) (Not Detect) Influenza Type B (PCR) (Not Detect) M.pneumoniae DNA (PCR) (Not Detect) Parainfluenza 1 (PCR) (Not Detect) Parainfluenza 2 (PCR) (Not Detect) Parainfluenza 3 (PCR) (Not Detect) Parainfluenza 4 (PCR) (Not Detect) RSV (PCR) (Not Detect) Entero/Rhino (PCR) (Not Detect) - Impressions Impressions Brain MRI 04/09/17 11:29 IMPRESSION: Unremarkable brain MRI. D/ / Phil Archer MD / Phil Archer MD Interpreting Provider: Phil Archer MD Exam - Constitutional Vitals: Temp Pulse Resp BP Pulse Ox 98.9 F 110 17 126/73 99 04/10/17 07:42 04/10/17 08:19 04/10/17 08:19 04/10/17 08:19 04/10/17 08:19 - Additional findings Additional findings: General: Obese male. Fasciculations of lips, and tongue improved from yesterday Heart: Sinus tachycardia Lungs: Clear to auscultation anteriorly. Abdomen: Soft nontender,positive bowel sounds with mild distention. Skin: Bilateral lower extremity erythema likely secondary to venous stasis. urogenital: Chronic Maza in place. No evidence of erythema. Back: Patient has two stage II pressure ulcers which are dressed. Extremities: Bilateral lower extremity pedal edema, erythema up to knee. With weeping Neuro: He is following simple commands. He is nonverbal. He has fasciculations of his lips and tongues. eye fasciculations resolved. Vascular: Pedal and radial pulses 2 out of 4 - VTE Documentation of Mechanical Device: Venous foot pump, device Consult Discharge Plan - Plan Referrals: Eduard Chapin MD [Primary Care Provider] - - Attending Attestation I examined this patient and my medical decision-making was reviewed with the Resident Physician. I agree with the documented findings, disposition and treatment plan as described except to the extent set forth below.
--- NOTE | 2017-04-10 09:29 | Nephrology Progress Note ---
Date of Encounter: 04/10/17 Time of Encounter: 09:00 - Assessment and Plan (1) End stage renal disease on dialysis Current Visit: Yes Status: Chronic TOVA in setting chronic resp failure and CHF. Today labs pending. No HD today. Continue to monitor. Subjective Principal diagnosis: esrd Interval history: Alert, non verbal. Trach>vent. Objective - Vital Signs Vital signs: Vital Signs Temp Pulse Resp BP Pulse Ox 04/10/17 08:19 110 17 126/73 99 04/10/17 08:14 110 04/10/17 07:42 98.9 F 108 22 123/76 99 04/10/17 04:38 20 100 04/10/17 04:10 98.6 F 109 17 132/63 100 04/10/17 00:54 14 103/61 99 04/10/17 00:28 106 18 99 04/09/17 23:52 98.5 F 107 18 103/61 99 04/09/17 22:14 24 100 04/09/17 21:10 20 100 04/09/17 20:05 110 24 100 04/09/17 19:51 98.8 F 111 18 131/63 100 04/09/17 16:39 98.8 F 107 18 138/57 100 04/09/17 16:10 17 98 04/09/17 14:34 97.4 F L 22 122/49 04/09/17 14:25 158/96 04/09/17 14:10 137/44 04/09/17 13:55 143/50 04/09/17 13:40 155/64 04/09/17 13:25 141/45 04/09/17 13:10 140/71 04/09/17 12:55 146/48 04/09/17 12:40 140/50 04/09/17 12:25 143/42 04/09/17 12:10 135/50 04/09/17 11:55 162/76 04/09/17 11:40 123/65 04/09/17 11:25 97.5 F L 18 123/65 04/09/17 10:27 18 122/65 98 Intake and Output 04/09/17 04/10/17 04/10/17 23:59 07:59 15:59 Intake Total 200 / 200 200 / 200 Output Total 50 / 50 50 / 50 Balance 150 / 150 150 / 150 Intake: Free Water Intake Amount 200 / 200 200 / 200 Output: Urine 50 / 50 Catheter 50 / 50 Urethral (Maza) 50 / 50 Other: Meal npo tube feeding Weight 111.9 kg Blood Glucose* 120 151 Patient Weight 04/10/17 23:59 Weight 111.9 kg - General Appearance General appearance: Present: well-developed, well-nourished, appears started age EENT: Present: mucous membranes moist Neck: Present: no JVD Respiratory: Present: rhonchi Cardiology: Present: edema, irregular rhythm Additional Comments: mild pitting LE, chronic vascular skin changes. Gastrointestinal: Present: normoactive bowel sounds Integumentary: Present: warm and dry - Lab 04/09/17 06:01 04/09/17 06:01 Most recent lab results ABG pH 7.40 pH Units (7.32-7.45) 04/04/17 10:40 ABG pCO2 52 mmHg (35-45) H 04/04/17 10:40 ABG pO2 87 mmHg (85-104) 04/04/17 10:40 ABG HCO3 32 mEq/L (21-27) H 04/04/17 10:40 ABG O2 Saturation 96 % (95-98) 04/04/17 10:40 Calcium 8.3 mg/dL (8.6-10.3) L 04/09/17 06:01 Phosphorus 5.1 mg/dL (2.7-4.5) H 04/07/17 04:46 Magnesium 1.7 mg/dL (1.6-2.6) 04/03/17 13:13 - VTE Documentation of Mechanical Device: Venous foot pump, device Consult Discharge Plan - Plan Referrals: Eduard Chapin MD [Primary Care Provider] -
--- NOTE | 2017-04-10 09:37 | Neurology Progress Note ---
<LavonPhil Negro - Last Filed: 04/10/17 09:34> Date of Encounter: 04/10/17 Time of Encounter: 09:34 Assessment and Plan (1) Acute encephalopathy Current Visit: Yes Status: Acute Appears improved today. EEG is negative for any epileptiform activity. MRI is negative for stroke. This is most likely metabolic in the setting of underlying infection as well as possible drug interaction. We will restart Cogentin 1 mg twice a day. Further management of infection per infectious disease and primary team. (2) Continuous tremor Current Visit: Yes Status: Acute Subjective Principal diagnosis: Sepsis Interval history: Patient seen and examined at bedside. Patient appears improved today. He is more awake and alert. He is still altered but it does appear improved. He is better able to follow commands today. He does not appear to be in any acute distress. Objective - Constitutional Vitals: Temp Pulse Resp BP Pulse Ox 98.9 F 110 17 126/73 99 04/10/17 07:42 04/10/17 08:19 04/10/17 08:19 04/10/17 08:19 04/10/17 08:19 - Neurological Exam Sensorimotor examination: Present: fasciculations Motor examination - right side: 4/5: biceps, paper finisher Motor examination - left side: 4/5: biceps, paper finisher Sensation intact: Present: pain Reflex and gait examination: other (Unable to assess) Mental Status Examination: Present: awake, alert, oriented to person, opens eyes to voice, opens eyes to noxious stimulation, makes eye contact, follows simple commands, localizes noxious stimulation, grimmacing Cranial nerve examination: Present: PERRL, EOMI, tongue fasiculations - VTE Documentation of Mechanical Device: Venous foot pump, device Results - Laboratory Findings CBC and BMP: 04/09/17 06:01 04/09/17 06:01 Abnormal lab findings: Abnormal lab results RBC 2.67 M/mcL (4.19-5.50) L 04/09/17 06:01 Hgb 8.2 g/dL (12.9-16.9) L 04/09/17 06:01 Hct 26.4 % (37.5-50.1) L 04/09/17 06:01 MCHC 31.1 g/dL (31.6-35.5) L 04/09/17 06:01 RDW 21.6 % (11.5-14.5) H 04/09/17 06:01 Plt Count 30 K/mcL (140-400) L* 04/09/17 06:01 Monocytes # 1.4 K/mcL (0.0-1.3) H 04/09/17 06:01 Nucleated RBCs/100 WBC 0.3 /100 WBC (0) H 04/09/17 06:01 Platelet Estimate Slight Decrease (Normal) L 04/07/17 04:46 Immature Plt Fraction 13.3 % (1.1-6.1) H 04/09/17 06:01 Polychromasia 1+ (Not Present) A 04/07/17 04:46 Hypochromasia Present (Not Present) A 04/04/17 04:02 Anisocytosis 3+ (Not Present) A 04/07/17 04:46 Microcytosis Present (Not Present) A 04/04/17 04:02 Macrocytosis Present (Not Present) A 04/04/17 04:02 Spherocytes 1+ (Not Present) A 04/04/17 04:02 Target Cells 1+ (Not Present) A 04/04/17 04:02 Acanthocytes (Spur) 1+ (Not Present) A 04/04/17 04:02 ABG pCO2 52 mmHg (35-45) H 04/04/17 10:40 ABG HCO3 32 mEq/L (21-27) H 04/04/17 10:40 ABG Total CO2 33 mEq/L (20-26) H 04/04/17 10:40 ABG Base Excess 6 mEq/L (-2 to 3) H 04/04/17 10:40 Sodium 135 mEq/L (136-145) L 04/09/17 06:01 Chloride 97 mEq/L (98-107) L 04/09/17 06:01 Carbon Dioxide 22 mEq/L (23-29) L 04/09/17 06:01 BUN 38 mg/dL (6-20) H 04/09/17 06:01 Creatinine 3.51 mg/dL (0.70-1.30) H 04/09/17 06:01 Est GFR ( Amer) 23 (> 60) L 04/09/17 06:01 Est GFR (Non-Af Amer) 19 (> 60) L 04/09/17 06:01 Glucose 116 mg/dL (70-105) H 04/09/17 06:01 POC Glucose 120 (58-89) H 04/10/17 00:32 Calcium 8.3 mg/dL (8.6-10.3) L 04/09/17 06:01 Phosphorus 5.1 mg/dL (2.7-4.5) H 04/07/17 04:46 Iron 17 mcg/dL (65-175) L 04/06/17 03:30 % Saturation 11 % (20-55) L 04/06/17 03:30 Transferrin 107 mg/dL (203-362) L 04/06/17 03:30 Ferritin > 1350 ng/ml (20-250) H 04/06/17 03:30 Total Bilirubin 1.1 mg/dL (0.3-1.0) H 04/09/17 06:01 Alkaline Phosphatase 209 Units/L (34-104) H 04/09/17 06:01 Creatine Kinase < 10 Units/L (30-223) L 04/08/17 04:09 Serum Total Protein 5.3 g/dL (6.4-8.9) L 04/09/17 06:01 Albumin 2.5 g/dL (3.5-5.7) L 04/09/17 06:01 Albumin/Globulin Ratio 0.9 (1.1-2.2) L 04/09/17 06:01 25-OH Vitamin D Total 13 ng/mL (30-80) L 04/06/17 03:30 Folate 28.0 ng/mL (3.0-16.0) H 04/06/17 08:43 Free T3 1.50 pg/mL (2.50-3.90) L 04/03/17 13:13 PTH Intact 97.8 pg/ml (10.0-65.0) H 04/06/17 03:30 Urine Clarity Cloudy (Clear) A 04/07/17 11:45 Urine Protein >=300 mg/dL (Neg-Trace) H 04/07/17 11:45 Urine Glucose (UA) 100 mg/dL (Normal) H 04/07/17 11:45 Urine Ketones Trace mg/dL (Negative) H 04/07/17 11:45 Urine Blood Large (Negative) H 04/07/17 11:45 Ur Leukocyte Esterase Moderate (Negative) H 04/07/17 11:45 Urine Microscopic RBC TNTC per hpf (0-3) H 04/07/17 11:45 Urine Microscopic WBC TNTC per hpf (0-3) H 04/07/17 11:45 Ur Squamous Epith Cells Moderate per lpf (None-Few) H 04/07/17 11:45 Urine Bacteria Many per hpf (None-Few) H 04/07/17 11:45 Ur Culture Indicated? YES (NO) A 04/07/17 11:45 Entero/Rhino (PCR) DETECTED (Not Detect) A 04/04/17 04:02 Consult Discharge Plan - Plan Referrals: Eduard Chapin MD [Primary Care Provider] - <James Perdomo I - Last Filed: 04/11/17 08:32> Date of Encounter: 04/10/17 Objective - Constitutional Vitals: Temp Pulse Resp BP Pulse Ox 99.3 F 98 20 104/59 100 04/11/17 07:28 04/11/17 08:19 04/11/17 08:13 04/11/17 08:13 04/11/17 08:13 Results - Laboratory Findings CBC and BMP: 04/11/17 05:47 04/11/17 07:37 Abnormal lab findings: Abnormal lab results RBC 2.52 M/mcL (4.19-5.50) L 04/11/17 05:47 Hgb 7.9 g/dL (12.9-16.9) L 04/11/17 05:47 Hct 24.9 % (37.5-50.1) L 04/11/17 05:47 RDW 20.8 % (11.5-14.5) H 04/11/17 05:47 Plt Count 29 K/mcL (140-400) L* 04/11/17 05:47 Nucleated RBCs/100 WBC 1.0 /100 WBC (0) H 04/11/17 05:47 Platelet Estimate Slight Decrease (Normal) L 04/07/17 04:46 Immature Plt Fraction 11.6 % (1.1-6.1) H 04/11/17 05:47 Polychromasia 1+ (Not Present) A 04/07/17 04:46 Hypochromasia Present (Not Present) A 04/04/17 04:02 Anisocytosis 3+ (Not Present) A 04/07/17 04:46 Microcytosis Present (Not Present) A 04/04/17 04:02 Macrocytosis Present (Not Present) A 04/04/17 04:02 Spherocytes 1+ (Not Present) A 04/04/17 04:02 Target Cells 1+ (Not Present) A 04/04/17 04:02 Acanthocytes (Spur) 1+ (Not Present) A 04/04/17 04:02 PT 12.7 Seconds (9.4-12.1) H 04/10/17 12:25 Fibrinogen 579 mg/dL (169-393) H 04/10/17 12:25 ABG pCO2 52 mmHg (35-45) H 04/04/17 10:40 ABG HCO3 32 mEq/L (21-27) H 04/04/17 10:40 ABG Total CO2 33 mEq/L (20-26) H 04/04/17 10:40 ABG Base Excess 6 mEq/L (-2 to 3) H 04/04/17 10:40 Sodium 133 mEq/L (136-145) L 04/11/17 07:37 Potassium 3.3 mEq/L (3.5-5.1) L 04/11/17 07:37 Chloride 96 mEq/L (98-107) L 04/11/17 07:37 BUN 35 mg/dL (6-20) H 04/11/17 07:37 Creatinine 3.12 mg/dL (0.70-1.30) H 04/11/17 07:37 Est GFR ( Amer) 26 (> 60) L 04/11/17 07:37 Est GFR (Non-Af Amer) 22 (> 60) L 04/11/17 07:37 Glucose 162 mg/dL (70-105) H 04/11/17 07:37 POC Glucose 126 (58-89) H 04/10/17 22:53 Phosphorus 5.1 mg/dL (2.7-4.5) H 04/07/17 04:46 Iron 17 mcg/dL (65-175) L 04/06/17 03:30 % Saturation 11 % (20-55) L 04/06/17 03:30 Transferrin 107 mg/dL (203-362) L 04/06/17 03:30 Ferritin > 1350 ng/ml (20-250) H 04/06/17 03:30 Total Bilirubin 1.1 mg/dL (0.3-1.0) H 04/09/17 06:01 Alkaline Phosphatase 209 Units/L (34-104) H 04/09/17 06:01 Creatine Kinase < 10 Units/L (30-223) L 04/08/17 04:09 Serum Total Protein 5.3 g/dL (6.4-8.9) L 04/09/17 06:01 Albumin 2.5 g/dL (3.5-5.7) L 04/09/17 06:01 Albumin/Globulin Ratio 0.9 (1.1-2.2) L 04/09/17 06:01 25-OH Vitamin D Total 13 ng/mL (30-80) L 04/06/17 03:30 Folate 28.0 ng/mL (3.0-16.0) H 04/06/17 08:43 Free T3 1.50 pg/mL (2.50-3.90) L 04/03/17 13:13 PTH Intact 97.8 pg/ml (10.0-65.0) H 04/06/17 03:30 Urine Clarity Cloudy (Clear) A 04/07/17 11:45 Urine Protein >=300 mg/dL (Neg-Trace) H 04/07/17 11:45 Urine Glucose (UA) 100 mg/dL (Normal) H 04/07/17 11:45 Urine Ketones Trace mg/dL (Negative) H 04/07/17 11:45 Urine Blood Large (Negative) H 04/07/17 11:45 Ur Leukocyte Esterase Moderate (Negative) H 04/07/17 11:45 Urine Microscopic RBC TNTC per hpf (0-3) H 04/07/17 11:45 Urine Microscopic WBC TNTC per hpf (0-3) H 04/07/17 11:45 Ur Squamous Epith Cells Moderate per lpf (None-Few) H 04/07/17 11:45 Urine Bacteria Many per hpf (None-Few) H 04/07/17 11:45 Ur Culture Indicated? YES (NO) A 04/07/17 11:45 Entero/Rhino (PCR) DETECTED (Not Detect) A 04/04/17 04:02
[2017-04-10] MEDS: Budesonide/Formoterol 160/4.5 MDI IH SCH ×2 (10:34→22:23)
[2017-04-10 11:10] LABS: Hemoglobin 8.3 g/dL (12.9-16.9)
[2017-04-10 11:12] LABS: Basophils % 0.3 %; Eosinophils # 0.1 K/mcL (0.0-0.6); Eosinophils % 1.3 %; Hematocrit 25.9 % (37.5-50.1); Immature Granulocytes % 0.8 % (0-4); Immature Platelets 15.1 % (1.1-6.1); Lymphocytes # 0.9 K/mcL (0.6-4.6); Lymphocytes % 11.3 %; Mean Corpuscular Hemoglobin 31.7 pg (28.0-33.3); Mean Corpuscular Volume 98.9 fL (83.0-100.0); Mean Platelet Volume 12.4 fL (9.4-12.4); Monocytes # 0.7 K/mcL (0.0-1.3); Monocytes % 9.7 %; Nucleated Red Blood Cells 0.5 /100 WBC (0); Red Blood Count 2.62 M/mcL (4.19-5.50); Red Cell Distribution Width 21.2 % (11.5-14.5); Segmented Neutrophils % 76.6 %
[2017-04-10 11:15] LABS: Neutrophils # 5.8 K/mcL (1.6-8.9)
[2017-04-10 11:19] LABS: Platelet Count 22 K/mcL (140-400)
[2017-04-10 11:26] LABS: Calcium 8.3 mg/dL (8.6-10.3); Potassium 3.5 mEq/L (3.5-5.1)
--- NOTE | 2017-04-10 11:41 | Internal Med Progress Note ---
Date of Encounter: 04/10/17 Time of Encounter: 11:41 - Subjective Interval history: Interval changes: 04/08/17: Today he is very somnulent. He is new to me but RN states this is an acute change since yesterday. Overnight the bibiana HAMMOND was called to see him for tremors and myoclonic jerks as well as aphasia. Zyvox had been started yesterday afternoon and the bibiana HAMMOND was concerned for and interaction with Cymbalt. So both his Cymbalta and Zyvox were held. Cogentin was started last night. A Head CT was done and did not show acute changes. 04/09/2016: He remains very somnulent and respond to some verbal commands and to tactile stimuli. Physical exam: See below Assessment and Plan: Acute change in mental status / Encephalopathy and possible new onset tremors/ myoclonic jerks: Head scan neg for acute process.Neurology consulted and EEG ordered per Neurlogy request. Study pending. Possible drug interaction Zyvox and Cymbolta. 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 Sputum cultures positive for Serratia and P. aerug. Concern for PNA. Cefepime and Levaquin were initially started at time of admission. Levaquin d/c'd. COPD (chronic obstructive pulmonary disease) Inhaled albuterol and ipratropium. Acute bronchitis due to Rhinovirus Supportive care. VRE UTI: Zyvox stopped and Daptomycin started. ID consulted for abx guidance Appreciate ID assistance. End stage renal disease on dialysis Intermittent hemodialysis per nephrology. Avoid nephrotoxins due to possible recovery of kidney function per nephrology. Continue with Lasix. Anemia in chronic renal disease Maintain hemoglobin above 8. S/p transfusion of 1 unit PRBC T2DM (type 2 diabetes mellitus) Insulin sliding scale. Diabetic diet. Acute on chronic systolic (congestive) heart failure Has a history of chronic systolic heart failure. Initial chest x-ray has evidence of pulmonary edema and pleural effusion.. He has 2+ edema. We will obtain echocardiogram. Continue with Lasix. Daily weights. Strict I/O. Secondary thrombocytopenia He has thrombocytopenia platelet, was 23 at platelet transfusion on and increased to 40 again back to 25 but he does not have any acute bleeding continue to monitor. He had a AML. Check PT/PTT and Fibrinogen. 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 Prednisone was restarted today 30 mg Qday. General appearance: Present: no acute distress - Head Head exam: Present: atraumatic, normocephalic - Eye Eye exam: Present: nystagmus, conjuntiva pink, sclera anicteric Pupils: Present: PERRL. Absent: unequal - Neck Neck exam general surgery: Present: supple, trachea midline. Absent: lymphadenopathy - Respiratory Respiratory exam: Present: CTAB. Absent: accessory muscle use, rales, rhonchi, wheezes - Cardiovascular Cardiovascular exam: Present: RRR, +S1, +S2. Absent: diastolic murmur, gallop, rubs, systolic murmur - GI/Abdominal GI/Abdominal exam: Present: normal bowel sounds, soft, no peritoneal signs. Absent: distended, tenderness - Extremities Exam Extremities exam: Present: warm, radial pulses palpable and symmetrical. Absent : calf tenderness, cyanotic, pedal edema - Neurological Exam Neurological exam: Present: altered, CN II-XII intact, no focal deficits. Absent: alert, oriented X3, pronater drift, facial droop, speech deficit - Skin Skin exam: Present: dry, erythema, intact, rash - Constitutional Vitals: Temp Pulse Resp BP Pulse Ox 98.5 F 104 18 91/60 100 04/10/17 11:08 04/10/17 11:08 04/10/17 11:16 04/10/17 11:16 04/10/17 11:16 General appearance: Present: no acute distress Internal Medicine: Result - Labs CBC & Chem 7: 04/10/17 10:50 04/10/17 10:50 Labs: Short CBC 04/10/17 Range/Units 10:50 WBC 7.5 (4.3-11.1) K/mcL Hgb 8.3 L (12.9-16.9) g/dL Hct 25.9 L (37.5-50.1) % Plt Count 22 L* (140-400) K/mcL Neutrophils # 5.8 (1.6-8.9) K/mcL BMP 04/10/17 10:50 Sodium 132 L Potassium 3.5 Chloride 96 L Carbon Dioxide 25 BUN 28 H Creatinine 2.66 H Glucose 176 H Calcium 8.3 L - ABG Interpretation ABG results: ABG ABG pH 7.40 pH Units (7.32-7.45) 04/04/17 10:40 ABG pCO2 52 mmHg (35-45) H 04/04/17 10:40 ABG pO2 87 mmHg (85-104) 04/04/17 10:40 ABG O2 Saturation 96 % (95-98) 04/04/17 10:40 PT/INR, D-dimer PT 11.5 Seconds (9.4-12.1) 04/03/17 13:13 - Impressions Impressions Brain MRI 04/09/17 11:29 IMPRESSION: Unremarkable brain MRI. D/ / Phil Archer MD / Phil Archer MD Interpreting Provider: Phil Archer MD - VTE Documentation of Mechanical Device: Venous foot pump, device Consult Discharge Plan - Plan Referrals: Eduard Chapin MD [Primary Care Provider] -
[2017-04-10 13:36] LABS: INR 1.2; Prothrombin Time 12.7 Seconds (9.4-12.1)
[2017-04-10 13:39] LABS: Activated Partial Thrombo Time 33.7 Seconds (26.0-36.0)
[2017-04-10] MEDS ORDERED: 0.9 % Sodium Chloride 250 ML ONE (15:06)
[2017-04-10] MEDS: Cefepime HCl 1,000 MG in Water for inj. (sterile) 10 ML IVP SCH (18:04)
[2017-04-11] MEDS: Ipratropium/Albuterol Neb 3 ML IH SCH ×4 (04:24→22:18)
[2017-04-11] MEDS: *HR* OxyCODONE Immed Rel 15 MG TABLET GTUBE PRN ×3 (04:50→19:47)
[2017-04-11] MEDS: Insulin LISPRO 300 UNITS/3 ML VIAL SQ SCH ×5 (04:51→19:50)
[2017-04-11 06:01] LABS: Basophils % 0.6 %
[2017-04-11 06:03] LABS: Eosinophils # 0.1 K/mcL (0.0-0.6); Eosinophils % 1.4 %; Hematocrit 24.9 % (37.5-50.1); Hemoglobin 7.9 g/dL (12.9-16.9); Immature Granulocytes % 1.9 % (0-4); Immature Platelets 11.6 % (1.1-6.1); Lymphocytes # 0.9 K/mcL (0.6-4.6); Lymphocytes % 12.1 %; Mean Corpuscular HGB Conc 31.7 g/dL (31.6-35.5); Mean Corpuscular Hemoglobin 31.3 pg (28.0-33.3); Mean Corpuscular Volume 98.8 fL (83.0-100.0); Mean Platelet Volume 11.6 fL (9.4-12.4); Monocytes # 0.7 K/mcL (0.0-1.3); Monocytes % 9.8 %; Neutrophils # 5.2 K/mcL (1.6-8.9); Red Blood Count 2.52 M/mcL (4.19-5.50); Red Cell Distribution Width 20.8 % (11.5-14.5); Segmented Neutrophils % 74.2 %
[2017-04-11 06:19] LABS: Platelet Count 29 K/mcL (140-400)
[2017-04-11 06:30] LABS: Calcium 8.6 mg/dL (8.6-10.3); Potassium 3.1 mEq/L (3.5-5.1)
[2017-04-11] MEDS: Furosemide 40 MG TABLET PO SCH ×2 (07:49→19:48)
[2017-04-11] MEDS: predniSONE 10 MG TABLET PO SCH (07:50)
[2017-04-11] MEDS: Chlorhexidine Rinse 15 ML MOUTHWASH MM SCH ×2 (07:52→19:48)
[2017-04-11] MEDS: Pantoprazole 40 MG VIAL IVP SCH (07:52)
[2017-04-11] MEDS: Renal Vitamin 1 MG CAPSULE PO SCH (07:52)
[2017-04-11 08:19] LABS: Calcium 8.7 mg/dL (8.6-10.3); Potassium 3.3 mEq/L (3.5-5.1)
[2017-04-11 08:43] LABS: Basophils % 0.5 %; Eosinophils % 1.4 %; Hemoglobin 8.5 g/dL (12.9-16.9); Mean Corpuscular Volume 99.3 fL (83.0-100.0)
[2017-04-11 08:45] LABS: Eosinophils # 0.1 K/mcL (0.0-0.6); Hematocrit 27.7 % (37.5-50.1); Immature Granulocytes % 1.7 % (0-4); Immature Platelets 11.2 % (1.1-6.1); Lymphocytes # 1.1 K/mcL (0.6-4.6); Lymphocytes % 14.4 %; Mean Corpuscular HGB Conc 30.7 g/dL (31.6-35.5); Mean Corpuscular Hemoglobin 30.5 pg (28.0-33.3); Mean Platelet Volume 11.7 fL (9.4-12.4); Monocytes # 0.9 K/mcL (0.0-1.3); Neutrophils # 5.4 K/mcL (1.6-8.9); Nucleated Red Blood Cells 0.8 /100 WBC (0); Red Blood Count 2.79 M/mcL (4.19-5.50); Red Cell Distribution Width 20.8 % (11.5-14.5)
[2017-04-11 08:53] LABS: Platelet Count 29 K/mcL (140-400)
--- NOTE | 2017-04-11 09:38 | Internal Med Progress Note ---
Date of Encounter: 04/11/17 Time of Encounter: 09:32 - Subjective Interval history: Interval changes: 04/08/17: Today he is very somnulent. He is new to me but RN states this is an acute change since yesterday. Overnight the bibiana HAMMOND was called to see him for tremors and myoclonic jerks as well as aphasia. Zyvox had been started yesterday afternoon and the bibiana HAMMOND was concerned for and interaction with Cymbalt. So both his Cymbalta and Zyvox were held. Cogentin was started last night. A Head CT was done and did not show acute changes. 04/09/2016: He remains very somnulent and respond to some verbal commands and to tactile stimuli. 04/10: Encephalopathy unchanged. Platelets dropped and small amount of blood suctioned 04/11: His mental status is now back to baseline and he is A&O x3. He c/o left hip pain. Reveiw of Cultures (taken from ID note): urine culture 03/09 grew VRE: unclear what he was treated with at that time ( reviewed records from [facility]) urine culture 04/07 and 04/06 grew enterococcus awaiting sensitivities Not sure if this is a true UTI versus colonization. patient has received 1 dose of vancomycin versus discontinued due to being end- stage renal disease dialysis dependent. Also received 1 dose of Zyvox which is discontinued due to suspected interaction with Cymbalta resulting in myoclonic jerks, tremors, altered mental status. Currently he is started on 04/08/17 daptomycin at 680 mg daily . Urine cultures positive for VRE. Assessment and Plan: Acute change in mental status / Encephalopathy and possible new onset tremors/ myoclonic jerks: Head scan neg for acute process.Neurology consulted and EEG ordered per Neurlogy request. Study pending. Possible drug interaction Zyvox and Cymbolta. 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 Sputum cultures positive for Serratia and P. aerug. Concern for PNA. Cefepime and Levaquin were initially started at time of admission. Levaquin d/c'd. COPD (chronic obstructive pulmonary disease) Inhaled albuterol and ipratropium. Acute bronchitis due to Rhinovirus Supportive care. VRE UTI: Zyvox stopped and Daptomycin started. ID consulted for abx guidance. Per ID note we will continue daptomycin with renal dosing adjusted by pharmacy to 680mg [id number]. Patient will be treated for total of 7 days (last dose on ). Appreciate ID and [facility] assistance. End stage renal disease on dialysis Intermittent hemodialysis per nephrology. Avoid nephrotoxins. Continue Lasix. Anemia in chronic renal disease Maintain hemoglobin above 8. S/p transfusion of 1 unit PRBC T2DM (type 2 diabetes mellitus) Insulin sliding scale. Diabetic diet. Acute on chronic systolic (congestive) heart failure Has a history of chronic systolic heart failure. Initial chest x-ray has evidence of pulmonary edema and pleural effusion.. He has 2+ edema. Echocardiogram obtained. Continue with Lasix. Daily weights. Strict I/O. Secondary thrombocytopenia He has thrombocytopenia platelet, was 23 at platelet transfusion on and increased to 40 again back to 25 but he does not have any acute bleeding continue to monitor. He had a AML. Check PT/PTT and Fibrinogen. Transfuse platelets Coags slightly increased but fiben normal. His platelets were unchanged s/p transfusion. It was discovered today that he'd previously been on Dapsone which was restarted. 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 Prednisone was restarted today 30 mg Qday. We will try to find out from [facility] if he is normally taking additional insuppressive medications besides prednisone which was restarted yesterday. Physical exam: General appearance: Present: no acute distress - Head Head exam: Present: atraumatic, normocephalic - Eye Eye exam: Present: nystagmus, conjuntiva pink, sclera anicteric Pupils: Present: PERRL. Absent: unequal - Neck Neck exam general surgery: Present: supple, trachea midline. Absent: lymphadenopathy - Respiratory Respiratory exam: Present: CTAB. Absent: accessory muscle use, rales, rhonchi, wheezes - Cardiovascular Cardiovascular exam: Present: RRR, +S1, +S2. Absent: diastolic murmur, gallop, rubs, systolic murmur - GI/Abdominal GI/Abdominal exam: Present: normal bowel sounds, soft, no peritoneal signs. Absent: distended, tenderness - Extremities Exam Extremities exam: Present: warm, radial pulses palpable and symmetrical. Absent : calf tenderness, cyanotic, pedal edema - Neurological Exam Neurological exam: Present: altered, CN II-XII intact, no focal deficits. Absent: alert, oriented X3, pronater drift, facial droop, speech deficit - Skin Skin exam: Present: dry, erythema, intact, rash Labs: - Constitutional Vitals: Temp Pulse Resp BP Pulse Ox 99.3 F 98 20 104/59 100 04/11/17 07:28 04/11/17 08:19 04/11/17 08:13 04/11/17 08:13 04/11/17 08:13 General appearance: Present: no acute distress Internal Medicine: Result - Labs CBC & Chem 7: 04/11/17 07:37 04/11/17 07:37 Labs: Short CBC 04/10/17 04/11/17 04/11/17 Range/Units 10:50 05:47 07:37 WBC 7.5 7.0 7.7 (4.3-11.1) K/mcL Hgb 8.3 L 7.9 L 8.5 L (12.9-16.9) g/dL Hct 25.9 L 24.9 L 27.7 L (37.5-50.1) % Plt Count 22 L* 29 L* 29 L* (140-400) K/mcL Neutrophils # 5.8 5.2 (1.6-8.9) K/mcL BMP 04/10/17 04/11/17 04/11/17 10:50 05:47 07:37 Sodium 132 L 133 L 133 L Potassium 3.5 3.1 L 3.3 L Chloride 96 L 96 L 96 L Carbon Dioxide 25 26 25 BUN 28 H 35 H 35 H Creatinine 2.66 H 3.13 H 3.12 H Glucose 176 H 193 H 162 H Calcium 8.3 L 8.6 8.7 - ABG Interpretation ABG results: ABG ABG pH 7.40 pH Units (7.32-7.45) 04/04/17 10:40 ABG pCO2 52 mmHg (35-45) H 04/04/17 10:40 ABG pO2 87 mmHg (85-104) 04/04/17 10:40 ABG O2 Saturation 96 % (95-98) 04/04/17 10:40 PT/INR, D-dimer PT 12.7 Seconds (9.4-12.1) H 04/10/17 12:25 - VTE Documentation of Mechanical Device: Venous foot pump, device Consult Discharge Plan - Plan Referrals: Eduard Chapin MD [Primary Care Provider] -
[2017-04-11 09:43] LABS: Platelet Estimate Marked Decrease (Normal)
[2017-04-11 09:44] LABS: Anisocytosis 1+ (Not Present)
[2017-04-11] MEDS ORDERED: 0.9 % Sodium Chloride 1,000 ML PRIME SCH (09:45)
[2017-04-11] MEDS ORDERED: *HR* Heparin 10,000 UNIT/10 ML VIAL IV PRN (09:45)
[2017-04-11] MEDS ORDERED: 0.9 % Sodium Chloride 250 ML IVC PRN (09:45)
--- NOTE | 2017-04-11 10:15 | Nephrology Progress Note ---
Date of Encounter: 04/11/17 Time of Encounter: 09:40 - Assessment and Plan (1) End stage renal disease on dialysis Current Visit: Yes Status: Chronic TOVA in setting chronic resp failure and CHF. Creat 3.12, documented urine output 245cc. Does not seem to recovering renal vega. HD today. Orders given. Continue to monitor. Subjective Principal diagnosis: Sepsis Interval history: Alert, answers questions. Knows in hospital byt thought in [facility]. Seemes back to known baseline mental status. Trach>vent. Objective - Vital Signs Vital signs: Vital Signs Temp Pulse Resp BP Pulse Ox 04/11/17 08:19 98 04/11/17 08:13 100 20 104/59 100 04/11/17 07:28 99.3 F 107 16 109/70 99 04/11/17 04:44 98.8 F 102 18 108/93 99 04/11/17 04:24 22 108/93 98 04/11/17 02:17 16 104/65 100 04/10/17 23:02 99.7 F H 106 17 110/72 100 04/10/17 22:25 27 106/63 98 04/10/17 20:10 98.2 F 100 18 106/65 100 04/10/17 18:23 110 18 133/73 99 04/10/17 17:35 98.9 F 110 18 133/74 99 04/10/17 16:50 16 99 04/10/17 15:37 99.0 F 111 21 101/60 98 04/10/17 15:34 110 14 99/58 98 04/10/17 15:33 99.0 F 107 15 101/60 98 04/10/17 15:19 99.5 F 110 18 130/74 98 04/10/17 13:42 98.5 F 108 17 98 04/10/17 11:16 18 91/60 100 04/10/17 11:08 98.5 F 104 18 105/57 97 Intake and Output 04/10/17 04/11/17 04/11/17 23:59 07:59 15:59 Intake Total 1313 / 1313 990 / 990 345 / 345 Output Total 150 / 150 150 / 150 40 / 40 Balance 1163 / 1163 840 / 840 305 / 305 Intake: Tube Feeding 682 / 682 590 / 590 Blood Product 331 / 331 Platelet Ph Acd-A Pasc Lp Irr2 331 / 331 Unit [id number] Free Water 100 / 100 200 / 200 145 / 145 Free Water Intake Amount 200 / 200 200 / 200 200 / 200 Output: Urine 100 / 100 150 / 150 Catheter 50 / 50 40 / 40 Urethral (Maza) 40 / 40 Other: Stool Size Small Stool Consistency soft Stool Color Brown Weight 112 kg Blood Glucose* 126 158 Patient Weight 04/11/17 23:59 Weight 112 kg - General Appearance General appearance: Present: well-developed, well-nourished, appears started age EENT: Present: mucous membranes moist Neck: Present: no JVD Respiratory: Present: rhonchi Cardiology: Present: edema, regular rate, regular rhythm Gastrointestinal: Present: normoactive bowel sounds, no tenderness Integumentary: Present: warm and dry Psychiatric: Present: mood/affect appropriate, cooperative - Lab 04/11/17 07:37 04/11/17 07:37 Most recent lab results ABG pH 7.40 pH Units (7.32-7.45) 04/04/17 10:40 ABG pCO2 52 mmHg (35-45) H 04/04/17 10:40 ABG pO2 87 mmHg (85-104) 04/04/17 10:40 ABG HCO3 32 mEq/L (21-27) H 04/04/17 10:40 ABG O2 Saturation 96 % (95-98) 04/04/17 10:40 Calcium 8.7 mg/dL (8.6-10.3) 04/11/17 07:37 Phosphorus 5.1 mg/dL (2.7-4.5) H 04/07/17 04:46 Magnesium 1.7 mg/dL (1.6-2.6) 04/03/17 13:13 - VTE Documentation of Mechanical Device: Venous foot pump, device Consult Discharge Plan - Plan Referrals: Eduard Chapin MD [Primary Care Provider] -
--- NOTE | 2017-04-11 10:35 | Neurology Progress Note ---
Date of Encounter: 04/11/17 Time of Encounter: 10:33 Assessment and Plan (1) Acute encephalopathy Current Visit: Yes Status: Acute Continues to improve today. Likely related to medication effects, seems to be responding to cogentin well, recommend continuing cogentin 1mg BID for 2-3 days. EEG is negative for any epileptiform activity. MRI is negative for stroke. Further management of infection per infectious disease and primary team. (2) Continuous tremor Current Visit: Yes Status: Acute Subjective Principal diagnosis: Sepsis Interval history: Patient seen and examined at bedside. Patient appears improved today. He is more awake and alert. He is able to answer questions appropriately and understands recent events related to his health care. His only complaint at this time is pain in his back and legs that is chronic Objective - Constitutional Vitals: Temp Pulse Resp BP Pulse Ox 99.3 F 98 20 104/59 100 04/11/17 07:28 04/11/17 08:19 04/11/17 08:13 04/11/17 08:13 04/11/17 08:13 - Neurological Exam Sensorimotor examination: Present: fasciculations (improved) Motor examination - right side: 4/5: biceps, clerical administrative assistant Motor examination - left side: 4/5: biceps, clerical administrative assistant Sensation intact: Present: intact Mental Status Examination: Present: awake, alert, oriented to person, oriented to place, follows commands appropriately, answers questions appropriately, opens eyes to voice, opens eyes to noxious stimulation, makes eye contact, follows simple commands, localizes noxious stimulation Cranial nerve examination: Present: PERRL, EOMI, no facial asymmetry is present , tongue fasiculations (improved) - VTE Documentation of Mechanical Device: Venous foot pump, device Results - Laboratory Findings CBC and BMP: 04/11/17 07:37 04/11/17 07:37 Abnormal lab findings: Abnormal lab results RBC 2.79 M/mcL (4.19-5.50) L 04/11/17 07:37 Hgb 8.5 g/dL (12.9-16.9) L 04/11/17 07:37 Hct 27.7 % (37.5-50.1) L 04/11/17 07:37 MCHC 30.7 g/dL (31.6-35.5) L 04/11/17 07:37 RDW 20.8 % (11.5-14.5) H 04/11/17 07:37 Plt Count 29 K/mcL (140-400) L* 04/11/17 07:37 Nucleated RBCs/100 WBC 0.8 /100 WBC (0) H 04/11/17 07:37 Platelet Estimate Marked Decrease (Normal) L 04/11/17 07:37 Immature Plt Fraction 11.2 % (1.1-6.1) H 04/11/17 07:37 Polychromasia 1+ (Not Present) A 04/07/17 04:46 Hypochromasia Present (Not Present) A 04/04/17 04:02 Anisocytosis 1+ (Not Present) A 04/11/17 07:37 Microcytosis Present (Not Present) A 04/04/17 04:02 Macrocytosis Present (Not Present) A 04/04/17 04:02 Spherocytes 1+ (Not Present) A 04/04/17 04:02 Target Cells 1+ (Not Present) A 04/04/17 04:02 Acanthocytes (Spur) 1+ (Not Present) A 04/04/17 04:02 PT 12.7 Seconds (9.4-12.1) H 04/10/17 12:25 Fibrinogen 579 mg/dL (169-393) H 04/10/17 12:25 ABG pCO2 52 mmHg (35-45) H 04/04/17 10:40 ABG HCO3 32 mEq/L (21-27) H 04/04/17 10:40 ABG Total CO2 33 mEq/L (20-26) H 04/04/17 10:40 ABG Base Excess 6 mEq/L (-2 to 3) H 04/04/17 10:40 Sodium 133 mEq/L (136-145) L 04/11/17 07:37 Potassium 3.3 mEq/L (3.5-5.1) L 04/11/17 07:37 Chloride 96 mEq/L (98-107) L 04/11/17 07:37 BUN 35 mg/dL (6-20) H 04/11/17 07:37 Creatinine 3.12 mg/dL (0.70-1.30) H 04/11/17 07:37 Est GFR ( Amer) 26 (> 60) L 04/11/17 07:37 Est GFR (Non-Af Amer) 22 (> 60) L 04/11/17 07:37 Glucose 162 mg/dL (70-105) H 04/11/17 07:37 POC Glucose 126 (58-89) H 04/10/17 22:53 Phosphorus 5.1 mg/dL (2.7-4.5) H 04/07/17 04:46 Iron 17 mcg/dL (65-175) L 04/06/17 03:30 % Saturation 11 % (20-55) L 04/06/17 03:30 Transferrin 107 mg/dL (203-362) L 04/06/17 03:30 Ferritin > 1350 ng/ml (20-250) H 04/06/17 03:30 Total Bilirubin 1.1 mg/dL (0.3-1.0) H 04/09/17 06:01 Alkaline Phosphatase 209 Units/L (34-104) H 04/09/17 06:01 Creatine Kinase < 10 Units/L (30-223) L 04/08/17 04:09 Serum Total Protein 5.3 g/dL (6.4-8.9) L 04/09/17 06:01 Albumin 2.5 g/dL (3.5-5.7) L 04/09/17 06:01 Albumin/Globulin Ratio 0.9 (1.1-2.2) L 04/09/17 06:01 25-OH Vitamin D Total 13 ng/mL (30-80) L 04/06/17 03:30 Folate 28.0 ng/mL (3.0-16.0) H 04/06/17 08:43 Free T3 1.50 pg/mL (2.50-3.90) L 04/03/17 13:13 PTH Intact 97.8 pg/ml (10.0-65.0) H 04/06/17 03:30 Urine Clarity Cloudy (Clear) A 04/07/17 11:45 Urine Protein >=300 mg/dL (Neg-Trace) H 04/07/17 11:45 Urine Glucose (UA) 100 mg/dL (Normal) H 04/07/17 11:45 Urine Ketones Trace mg/dL (Negative) H 04/07/17 11:45 Urine Blood Large (Negative) H 04/07/17 11:45 Ur Leukocyte Esterase Moderate (Negative) H 04/07/17 11:45 Urine Microscopic RBC TNTC per hpf (0-3) H 04/07/17 11:45 Urine Microscopic WBC TNTC per hpf (0-3) H 04/07/17 11:45 Ur Squamous Epith Cells Moderate per lpf (None-Few) H 04/07/17 11:45 Urine Bacteria Many per hpf (None-Few) H 04/07/17 11:45 Ur Culture Indicated? YES (NO) A 04/07/17 11:45 Entero/Rhino (PCR) DETECTED (Not Detect) A 04/04/17 04:02 Consult Discharge Plan - Plan Referrals: Eduard Chapin MD [Primary Care Provider] -
[2017-04-11] MEDS: Budesonide/Formoterol 160/4.5 MDI IH SCH ×2 (10:51→22:18)
[2017-04-11] MEDS ORDERED: Albumin 25% 12.5gm/50mL 12.5 GM/50 ML IV.SOLN ONE (14:37)
[2017-04-11] MEDS ORDERED: Albumin 25% 12.5gm/50mL 12.5 GM/50 ML IV.SOLN IVPB ONE (14:44)
--- NOTE | 2017-04-11 15:42 | Infectious Disease Progress No ---
Date of Encounter: 04/11/17 Time of Encounter: 15:39 - Assessment and Plan (1) Sepsis Current Visit: Yes Status: Acute three sirs cirteria of tachycardia, leukocytosis, tachypnea. All have resolved except for tachycardia. sinus tacycardia Without lactic acidosis. Secondary to pneumonia and VRE UTI. Qualifiers: Sepsis type: Pseudomonas Qualified Code(s): A41.52 - Sepsis due to Pseudomonas (2) VRE (vancomycin-resistant Enterococci) infection Current Visit: Yes Status: Acute urine culture 03/09 grew VRE: unclear what he was treated with at that time ( reviewed records from [facility]) urine culture 04/07 and 04/06 grew enterococcus awaiting sensitivities Not sure if this is a true UTI versus colonization. patient has received 1 dose of vancomycin versus discontinued due to being end- stage renal disease dialysis dependent. Also received 1 dose of Zyvox which is discontinued due to suspected interaction with Cymbalta resulting in myoclonic jerks, tremors, altered mental status. Currently he is started on 04/08/17 daptomycin at 680 mg daily . Urine cultures positive for VRE. Plan: continue daptomycin renally dose adjusted as per pharmacy to 680mg [id number]. Patient will be treated for total of 7 days (last dose on 04/14/17) (3) Pneumonia Current Visit: Yes Status: Acute CXr shows cardiomegaly, pulmonary congestion, bilateral infiltrates. tracheostomy, ventilator depenedent (placed jan 2017 at [facility] after acute respiratory failure 2nd to influenza) patient presented with increasing O2 requirements, increasing secretions, and hypoxia In February patient was hospitalized at [facility]. CT chest 03/09 showed left lung total atelectasis and loculated effusions. At that time he was diagnosed with multifocal pneumonia. CXR 04/03/17 shows interval improvement from 03/09/17 ( complete opacification of left hemithorax, pulmonary vascular congestion). Initially patient was started on vancomycin and cefepime Vancomycin was discontinued due to Patient history of end-stage renal disease, dialysis dependent. Cefepime 1000mg daily was continued (day 6). Sputum culture grew Serratia marcescens and Pseudomonas aeruginosa (resistant to levaquin). both sensitive to cefepime all blood cultres negative x6 also started on daptomycin for VRE (patient failed zyvox due to suspected interaction with cymbalta caused AMS, tremors, myoclonic jerks). respiratory status stable in last 48 hours: FIO2 requirement at 40% plan: continue cefepime 1000mg daily total 10 days (started on 04/03/17) renally dosed as per pharmacy. Qualifiers: Pneumonia type: due to unspecified organism Laterality: left Lung location: lower lobe of lung Qualified Code(s): J18.1 - Lobar pneumonia, unspecified organism (4) Acute respiratory failure Current Visit: Yes Status: Resolved 2nd to PNA, systolic chf exacerbation Resolved management of chf as per primary plan as above. tracheotomy palced in jan 2017 at [facility] 2nd to influenza. continue duonebs, symbicort. Qualifiers: Respiratory failure complication: hypoxia and hypercapnia Qualified Code(s) : J96.01 - Acute respiratory failure with hypoxia; J96.02 - Acute respiratory failure with hypercapnia; J96.02 - Acute respiratory failure with hypercapnia; J96.02 - Acute respiratory failure with hypercapnia (5) End stage renal disease on dialysis Current Visit: Yes Status: Chronic dialysis dependent ESRD starting jan 2017. unclear if he had CKD before hand. on dialysis nehrology following (6) Acute bronchitis due to Rhinovirus Current Visit: Yes Status: Acute RIP + for rhinovirus continue supporive measures including duonebs, symbicort. (7) Pressure ulcer of back Current Visit: Yes Status: Acute dressed no discharge change bed position Q2h as per primary Qualifiers: Pressure ulcer stage: stage 2 Qualified Code(s): L89.102 - Pressure ulcer of unspecified part of back, stage 2 (8) Acute on chronic systolic (congestive) heart failure Current Visit: Yes Status: Acute (9) AML (acute myeloid leukemia) Current Visit: Yes Status: Acute History of AML status post bone marrow transplant. Qualifiers: Leukemia Active/Remission status: in remission Qualified Code(s): C92.01 - Acute myeloblastic leukemia, in remission; C92.61 - Acute myeloid leukemia with [id number] in remission; C92.A1 - Acute myeloid leukemia with multilineage dysplasia, in remission (10) Erythema of lower extremity Current Visit: Yes Status: Acute b/l symmetric erythema of LE. no pus like discharge Lower extremity erythema, skin changes secondary to [id number] disease after bone marrow transplant. Patient on prednisone 30 mg daily. Primary care team notified. (11) Anemia in chronic renal disease Current Visit: Yes Status: Acute As per primary. Qualifiers: Chronic kidney disease stage: on chronic dialysis Qualified Code(s): N18.6 - End stage renal disease; D63.1 - Anemia in chronic kidney disease; D63.1 - Anemia in chronic kidney disease; Z99.2 - Dependence on renal dialysis; Z99.2 - Dependence on renal dialysis; Z99.2 - Dependence on renal dialysis; Z99.2 - Dependence on renal dialysis (12) DVT prophylaxis Current Visit: Yes Status: Acute As per primary. - Subjective Interval history: Patient is able to converse. He is following commands. He denies any complaints today. Patient continues tachycardic. Afebrile. Nurse reports he has frequent bowel movements. He denies chest pain, shortness of breath, nausea , vomiting, diarrhea. Infect Dis PN-Objective Data - Labs CBC & Chem 7: 04/14/17 03:34 04/14/17 03:34 Labs: Laboratory Results - last 24 hr 04/10/17 04/10/17 04/10/17 04:05 07:31 11:05 WBC RBC Hgb Hct MCV MCH MCHC RDW Plt Count MPV Immature Gran % Seg Neutrophils % Lymphocytes % Monocytes % Eosinophils % Basophils % Neutrophils # Lymphocytes # Monocytes # Eosinophils # Basophils # Nucleated RBCs/100 WBC Platelet Estimate Immature Plt Fraction Anisocytosis Sodium Potassium Chloride Carbon Dioxide BUN Creatinine Est GFR ( Amer) Est GFR (Non-Af Amer) BUN/Creatinine Ratio Glucose POC Glucose 131 H 151 H 179 H Calculated Osmolality Calcium 04/10/17 04/10/17 04/10/17 15:31 20:09 22:53 WBC RBC Hgb Hct MCV MCH MCHC RDW Plt Count MPV Immature Gran % Seg Neutrophils % Lymphocytes % Monocytes % Eosinophils % Basophils % Neutrophils # Lymphocytes # Monocytes # Eosinophils # Basophils # Nucleated RBCs/100 WBC Platelet Estimate Immature Plt Fraction Anisocytosis Sodium Potassium Chloride Carbon Dioxide BUN Creatinine Est GFR ( Amer) Est GFR (Non-Af Amer) BUN/Creatinine Ratio Glucose POC Glucose 216 H 195 H 126 H Calculated Osmolality Calcium 04/11/17 04/11/17 04/11/17 05:47 05:47 07:13 WBC 7.0 RBC 2.52 L Hgb 7.9 L Hct 24.9 L MCV 98.8 MCH 31.3 MCHC 31.7 RDW 20.8 H Plt Count 29 L* MPV 11.6 Immature Gran % 1.9 Seg Neutrophils % 74.2 Lymphocytes % 12.1 Monocytes % 9.8 Eosinophils % 1.4 Basophils % 0.6 Neutrophils # 5.2 Lymphocytes # 0.9 Monocytes # 0.7 Eosinophils # 0.1 Basophils # 0.0 Nucleated RBCs/100 WBC 1.0 H Platelet Estimate Immature Plt Fraction 11.6 H Anisocytosis Sodium 133 L Potassium 3.1 L Chloride 96 L Carbon Dioxide 26 BUN 35 H Creatinine 3.13 H Est GFR ( Amer) 26 L Est GFR (Non-Af Amer) 22 L BUN/Creatinine Ratio 11 Glucose 193 H POC Glucose 158 H Calculated Osmolality 289 Calcium 8.6 04/11/17 04/11/17 04/11/17 07:37 07:37 11:25 WBC 7.7 RBC 2.79 L Hgb 8.5 L Hct 27.7 L MCV 99.3 MCH 30.5 MCHC 30.7 L RDW 20.8 H Plt Count 29 L* MPV 11.7 Immature Gran % 1.7 Seg Neutrophils % 70.0 Lymphocytes % 14.4 Monocytes % 12.0 Eosinophils % 1.4 Basophils % 0.5 Neutrophils # 5.4 Lymphocytes # 1.1 Monocytes # 0.9 Eosinophils # 0.1 Basophils # 0.0 Nucleated RBCs/100 WBC 0.8 H Platelet Estimate Marked Decrease L Immature Plt Fraction 11.2 H Anisocytosis 1+ A Sodium 133 L Potassium 3.3 L Chloride 96 L Carbon Dioxide 25 BUN 35 H Creatinine 3.12 H Est GFR ( Amer) 26 L Est GFR (Non-Af Amer) 22 L BUN/Creatinine Ratio 11 Glucose 162 H POC Glucose 231 H Calculated Osmolality 288 Calcium 8.7 Cultures: Cultures 04/07/17 11:45 Urine Culture - Final Urine,[place] Enterococcus faecium 04/03/17 13:35 Blood Culture - Final Peripheral Venipuncture No growth. 04/03/17 13:35 Blood Culture - Final Peripheral Venipuncture No growth. 04/07/17 12:00 Blood Culture - Preliminary Central Venous Catheter No growth. 04/07/17 12:00 Blood Culture - Preliminary Peripheral Venipuncture No growth. 04/06/17 15:05 Urine Culture - Final Urine,[place] Enterococcus faecium 04/04/17 14:00 Sputum Culture - Final Sputum Pseudomonas aeruginosa Serratia marcescens Serology 04/07/17 04/05/17 04/04/17 Range/Units 11:45 14:20 04:02 Urine Color Yellow Yellow (Yellow) Urine Clarity Cloudy A Cloudy A (Clear) Urine pH 6.0 6.5 (5.0-8.0) pH Units Ur Specific [place] 1.018 1.012 (1.010-1.025) Urine Protein >=300 H >=300 H (Neg-Trace) mg/dL Urine Glucose (UA) 100 H 100 H (Normal) mg/dL Urine Ketones Trace H Negative (Negative) mg/dL Urine Blood Large H Moderate H (Negative) Urine Nitrite Negative Negative (Negative) Urine Bilirubin Negative Negative (Negative) Urine Urobilinogen Normal Normal (Normal) mg/dL Ur Leukocyte Esterase Moderate H Small H (Negative) Urine Microscopic RBC TNTC H 5-15 H (0-3) per hpf Urine Microscopic WBC TNTC H TNTC H (0-3) per hpf Ur Squamous Epith Cells Moderate H Moderate H (None-Few) per lpf Urine Bacteria Many H Few (None-Few) per hpf Hyaline Casts None Seen Few (None-Few) per lpf Ur Culture Indicated? YES A (NO) Chlamy pneumoniae PCR Not Detected (Not Detect) Adenovirus (PCR) Not Detected (Not Detect) B. pertussis DNA (PCR) Not Detected (Not Detect) B.parapertussis DNA PCR Not Detected (Not Detect) Coronavirus OC43 (PCR) Not Detected (Not Detect) Coronavirus HKU1 (PCR) Not Detected (Not Detect) Coronavirus 229E (PCR) Not Detected (Not Detect) Coronavirus NL63 (PCR) Not Detected (Not Detect) Hep Bs Antigen (Nonreactive) Hep Bs Antibody mIU/mL Human Metapneumovir PCR Not Detected (Not Detect) Influenza A (H1) PCR Not Detected (Not Detect) Influ A (H1N1/09) PCR Not Detected (Not Detect) Influenza A (H3) PCR Not Detected (Not Detect) Influenza A Untype (PCR) Not Detected (Not Detect) Influenza Type B (PCR) Not Detected (Not Detect) M.pneumoniae DNA (PCR) Not Detected (Not Detect) Parainfluenza 1 (PCR) Not Detected (Not Detect) Parainfluenza 2 (PCR) Not Detected (Not Detect) Parainfluenza 3 (PCR) Not Detected (Not Detect) Parainfluenza 4 (PCR) Not Detected (Not Detect) RSV (PCR) Not Detected (Not Detect) Entero/Rhino (PCR) DETECTED A (Not Detect) 04/03/17 Range/Units 13:13 Urine Color (Yellow) Urine Clarity (Clear) Urine pH (5.0-8.0) pH Units Ur Specific [place] (1.010-1.025) Urine Protein (Neg-Trace) mg/dL Urine Glucose (UA) (Normal) mg/dL Urine Ketones (Negative) mg/dL Urine Blood (Negative) Urine Nitrite (Negative) Urine Bilirubin (Negative) Urine Urobilinogen (Normal) mg/dL Ur Leukocyte Esterase (Negative) Urine Microscopic RBC (0-3) per hpf Urine Microscopic WBC (0-3) per hpf Ur Squamous Epith Cells (None-Few) per lpf Urine Bacteria (None-Few) per hpf Hyaline Casts (None-Few) per lpf Ur Culture Indicated? (NO) Chlamy pneumoniae PCR (Not Detect) Adenovirus (PCR) (Not Detect) B. pertussis DNA (PCR) (Not Detect) B.parapertussis DNA PCR (Not Detect) Coronavirus OC43 (PCR) (Not Detect) Coronavirus HKU1 (PCR) (Not Detect) Coronavirus 229E (PCR) (Not Detect) Coronavirus NL63 (PCR) (Not Detect) Hep Bs Antigen Nonreactive (Nonreactive) Hep Bs Antibody 26.47 mIU/mL Human Metapneumovir PCR (Not Detect) Influenza A (H1) PCR (Not Detect) Influ A (H1N1/09) PCR (Not Detect) Influenza A (H3) PCR (Not Detect) Influenza A Untype (PCR) (Not Detect) Influenza Type B (PCR) (Not Detect) M.pneumoniae DNA (PCR) (Not Detect) Parainfluenza 1 (PCR) (Not Detect) Parainfluenza 2 (PCR) (Not Detect) Parainfluenza 3 (PCR) (Not Detect) Parainfluenza 4 (PCR) (Not Detect) RSV (PCR) (Not Detect) Entero/Rhino (PCR) (Not Detect) Exam - Constitutional Vitals: Temp Pulse Resp BP Pulse Ox 98.6 F 102 19 111/71 98 04/11/17 11:43 04/11/17 11:58 04/11/17 11:57 04/11/17 11:43 04/11/17 11:57 - Additional findings Additional findings: General: Obese male. There is no fasciculations today. Heart: Sinus tachycardia Lungs: Clear to auscultation anteriorly. Abdomen: Soft nontender,positive bowel sounds with mild distention. Skin: Bilateral lower extremity erythema likely secondary to venous stasis. urogenital: Chronic M[place] in place. No evidence of erythema. Back: Patient has two stage II pressure ulcers which are dressed. Extremities: Bilateral lower extremity pedal edema, erythema up to knee. Neuro: Alert and oriented 3. Conversational following commands. Vascular: Pedal and radial pulses 2 out of 4 - VTE Documentation of Mechanical Device: Venous foot pump, device Consult Discharge Plan - Plan Referrals: Eduard Chapin MD [Primary Care Provider] - - Attending Attestation I examined this patient and my medical decision-making was reviewed with the Resident Physician. I agree with the documented findings, disposition and treatment plan as described except to the extent set forth below.
[2017-04-11] MEDS ORDERED: 0.9 % Sodium Chloride 1,000 ML ONE (17:49)
[2017-04-11] MEDS: Miconazole 2% ointment 114 GM TUBE TP SCH ×2 (18:12→19:48)
[2017-04-11] MEDS: Cefepime HCl 1,000 MG in Water for inj. (sterile) 10 ML IVP SCH (18:18)
[2017-04-11] MEDS: *HR* LORazepam 0.5 MG TABLET GTUBE PRN (19:48)
[2017-04-11] MEDS ORDERED: Ipratropium/Albuterol Neb 3 ML ONE (22:22)
[2017-04-12] MEDS: Ipratropium/Albuterol Neb 3 ML IH SCH ×4 (04:13→22:02)
[2017-04-12] MEDS: Insulin LISPRO 300 UNITS/3 ML VIAL SQ SCH ×6 (04:22→21:01)
[2017-04-12] MEDS: *HR* LORazepam 0.5 MG TABLET GTUBE PRN ×2 (05:27→21:00)
[2017-04-12] MEDS: *HR* OxyCODONE Immed Rel 15 MG TABLET GTUBE PRN ×3 (05:27→21:00)
[2017-04-12 07:57] LABS: Basophils % 0.6 %; Eosinophils % 1.2 %; Mean Corpuscular Volume 98.9 fL (83.0-100.0); Red Cell Distribution Width 20.6 % (11.5-14.5)
[2017-04-12 07:59] LABS: Basophils # 0.1 K/mcL (0.0-0.2); Eosinophils # 0.1 K/mcL (0.0-0.6); Hematocrit 26.3 % (37.5-50.1); Immature Granulocytes % 1.6 % (0-4); Immature Platelets 20.4 % (1.1-6.1); Lymphocytes # 1.4 K/mcL (0.6-4.6); Lymphocytes % 17.1 %; Mean Corpuscular HGB Conc 30.4 g/dL (31.6-35.5); Mean Corpuscular Hemoglobin 30.1 pg (28.0-33.3); Monocytes # 1.3 K/mcL (0.0-1.3); Monocytes % 15.1 %; Neutrophils # 5.4 K/mcL (1.6-8.9); Nucleated Red Blood Cells 0.6 /100 WBC (0); Red Blood Count 2.66 M/mcL (4.19-5.50); Segmented Neutrophils % 64.4 %
[2017-04-12 08:14] LABS: Calcium 8.9 mg/dL (8.6-10.3); Potassium 4.3 mEq/L (3.5-5.1)
[2017-04-12 08:37] LABS: Platelet Count 23 K/mcL (140-400)
[2017-04-12 08:39] LABS: Basophilic Stippling 1+ (Not Present); Polychromasia 1+ (Not Present)
[2017-04-12] MEDS: SODIUM CHLORIDE 0.9% IVPB SCH (09:06)
[2017-04-12] MEDS: DAPTOMYCIN IVPB SCH (09:06)
[2017-04-12] MEDS: Renal Vitamin 1 MG CAPSULE PO SCH (09:07)
[2017-04-12] MEDS: Furosemide 40 MG TABLET PO SCH ×2 (09:07→21:00)
[2017-04-12] MEDS: predniSONE 10 MG TABLET PO SCH (09:07)
[2017-04-12] MEDS: Miconazole 2% ointment 114 GM TUBE TP SCH ×2 (09:07→21:00)
[2017-04-12] MEDS: Chlorhexidine Rinse 15 ML MOUTHWASH MM SCH ×2 (09:07→21:00)
[2017-04-12] MEDS: Pantoprazole 40 MG VIAL IVP SCH (09:07)
--- NOTE | 2017-04-12 09:37 | Nephrology Progress Note ---
Date of Encounter: 04/12/17 Time of Encounter: 09:15 - Assessment and Plan (1) End stage renal disease on dialysis Current Visit: Yes Status: Chronic TOVA in setting chronic resp failure and CHF. Does not seem to recovering renal vega. HD yesterday, no HD today. Continue to monitor. Subjective Principal diagnosis: Sepsis Interval history: Alert, answers questions. Back to known baseline mental status. Trach>vent. Objective - Vital Signs Vital signs: Vital Signs Temp Pulse Resp BP Pulse Ox 04/12/17 07:55 98.1 F 101 25 108/77 100 04/12/17 05:03 98.2 F 105 20 131/80 100 04/12/17 04:15 19 100 04/11/17 23:52 98.6 F 100 21 103/53 100 04/11/17 22:21 20 100 04/11/17 20:25 16 141/91 98 04/11/17 20:00 103 04/11/17 19:19 98.5 F 102 16 128/89 96 04/11/17 18:35 100 17 130/81 100 04/11/17 18:00 97.7 F 97 11 130/81 100 04/11/17 17:35 100 04/11/17 17:16 98 F 20 120/78 04/11/17 16:45 117/77 04/11/17 16:30 106/72 04/11/17 16:15 112/71 04/11/17 16:00 104/86 04/11/17 15:45 95/66 04/11/17 15:30 120/79 04/11/17 15:15 104/68 04/11/17 15:00 96/66 04/11/17 14:45 90/48 04/11/17 14:30 83/51 04/11/17 14:15 85/47 04/11/17 14:00 108/69 04/11/17 13:45 99.2 F 18 121/70 04/11/17 11:58 102 04/11/17 11:57 102 19 98 04/11/17 11:43 98.6 F 98 12 111/71 99 04/11/17 10:52 14 106/65 97 04/11/17 10:42 96 15 106/65 99 Intake and Output 04/11/17 04/12/17 04/12/17 23:59 07:59 15:59 Intake Total 400 / 400 0 / 0 Output Total 1851 / 1851 45 / 45 Balance -1451 / -1451 -45 / -45 Intake: Oral 400 / 400 0 / 0 Output: Urine 0 / 0 Gastric Tube Lavage Amount 0 / 0 Left Upper Quadrant 0 / 0 Total Dialysis (HD) Output 1716 / 1716 Catheter 135 / 135 45 / 45 Urethral ([place]) 45 / 45 Other: Meal Dinner Percent of Meal Consumed 100% Stool Size Moderate Stool Consistency loose soft Stool Color Brown Weight 111.6 kg Blood Glucose* 110 93 Hemodialysis Net Fluid Removed 1000 (mL) Patient Weight 04/12/17 23:59 Weight 111.6 kg - General Appearance General appearance: Present: well-developed, well-nourished, appears started age EENT: Present: mucous membranes moist Neck: Present: no JVD Respiratory: Present: clear Cardiology: Present: edema, regular rate, regular rhythm Additional Comments: mild Dialysis Vascular Access: Venous Catheter Gastrointestinal: Present: normoactive bowel sounds, no tenderness Integumentary: Present: warm and dry Psychiatric: Present: mood/affect appropriate, cooperative - Lab 04/12/17 07:29 04/12/17 07:29 Most recent lab results ABG pH 7.40 pH Units (7.32-7.45) 04/04/17 10:40 ABG pCO2 52 mmHg (35-45) H 04/04/17 10:40 ABG pO2 87 mmHg (85-104) 04/04/17 10:40 ABG HCO3 32 mEq/L (21-27) H 04/04/17 10:40 ABG O2 Saturation 96 % (95-98) 04/04/17 10:40 Calcium 8.9 mg/dL (8.6-10.3) 04/12/17 07:29 Phosphorus 5.1 mg/dL (2.7-4.5) H 04/07/17 04:46 Magnesium 1.7 mg/dL (1.6-2.6) 04/03/17 13:13 - VTE Documentation of Mechanical Device: Venous foot pump, device Consult Discharge Plan - Plan Referrals: Eduard Chapin MD [Primary Care Provider] -
[2017-04-12] MEDS: Budesonide/Formoterol 160/4.5 MDI IH SCH ×2 (09:44→22:01)
--- NOTE | 2017-04-12 12:41 | Internal Med Progress Note ---
Date of Encounter: 04/13/17 Time of Encounter: 12:41 - Subjective Interval history: Interval changes: 04/08/17: Today he is very somnulent. He is new to me but RN states this is an acute change since yesterday. Overnight the bibiana HAMMOND was called to see him for tremors and myoclonic jerks as well as aphasia. Zyvox had been started yesterday afternoon and the bibiana HAMMOND was concerned for and interaction with Cymbalt. So both his Cymbalta and Zyvox were held. Cogentin was started last night. A Head CT was done and did not show acute changes. 04/09/2016: He remains very somnulent and respond to some verbal commands and to tactile stimuli. 04/10: Encephalopathy unchanged. Platelets dropped and small amount of blood suctioned 04/11: His mental status is now back to baseline and he is A&O x3. He c/o left hip pain. 04/12: He is very alert today and is sitting up talking. Still c/o hip pain Reveiw of Cultures (taken from ID note): urine culture 03/09 grew VRE: unclear what he was treated with at that time ( reviewed records from [facility]) urine culture 04/07 and 04/06 grew enterococcus awaiting sensitivities Not sure if this is a true UTI versus colonization. patient has received 1 dose of vancomycin versus discontinued due to being end- stage renal disease dialysis dependent. Also received 1 dose of Zyvox which is discontinued due to suspected interaction with Cymbalta resulting in myoclonic jerks, tremors, altered mental status. Currently he is started on 04/08/17 daptomycin at 680 mg daily . Urine cultures positive for VRE. Assessment and Plan: Acute change in mental status / Encephalopathy and possible new onset tremors/ myoclonic jerks: Head scan neg for acute process.Neurology consulted and EEG ordered per Neurlogy request. No seizure activity noted. . Possible drug interaction Zyvox and Cymbolta. 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 Sputum cultures positive for Serratia and P. aerug. Concern for PNA. Cefepime and Levaquin were initially started at time of admission. Levaquin d/c'd. COPD (chronic obstructive pulmonary disease) Inhaled albuterol and ipratropium. Acute bronchitis due to Rhinovirus Supportive care. VRE UTI: Zyvox stopped and Daptomycin started. ID consulted for abx guidance. Per ID note we will continue daptomycin with renal dosing adjusted by pharmacy to 680mg [id number]. Patient will be treated for total of 7 days (last dose on ). Appreciate ID and [facility] assistance. End stage renal disease on dialysis Intermittent hemodialysis per nephrology. Avoid nephrotoxins. Continue Lasix. TOVA in setting chronic resp failure and CHF. Does not seem to recovering renal vega. HD yesterday, no HD today. Continue to monitor. Anemia in chronic renal disease Maintain hemoglobin above 8. S/p transfusion of 1 unit PRBC T2DM (type 2 diabetes mellitus) Insulin sliding scale. Diabetic diet. Acute on chronic systolic (congestive) heart failure Has a history of chronic systolic heart failure. Initial chest x-ray has evidence of pulmonary edema and pleural effusion.. He has 2+ edema. Echocardiogram obtained. Continue with Lasix. Daily weights. Strict I/O. Secondary thrombocytopenia He has thrombocytopenia platelet, was 23 at platelet transfusion on and increased to 40 again back to 25 but he does not have any acute bleeding continue to monitor. He had a AML. Check PT/PTT and Fibrinogen. Transfuse platelets Coags slightly increased but fiben normal. His platelets were unchanged s/p transfusion. It was discovered today that he'd previously been on Dapsone which was restarted. 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 Prednisone was restarted today 30 mg Qday. We will try to find out from [facility] if he is normally taking additional insuppressive medications besides prednisone which was restarted yesterday. Physical exam: General appearance: Present: no acute distress - Head Head exam: Present: atraumatic, normocephalic - Eye Eye exam: Present: nystagmus, conjuntiva pink, sclera anicteric Pupils: Present: PERRL. Absent: unequal - Neck Neck exam general surgery: Present: supple, trachea midline. Absent: lymphadenopathy - Respiratory Respiratory exam: Present: CTAB. Absent: accessory muscle use, rales, rhonchi, wheezes - Cardiovascular Cardiovascular exam: Present: RRR, +S1, +S2. Absent: diastolic murmur, gallop, rubs, systolic murmur - GI/Abdominal GI/Abdominal exam: Present: normal bowel sounds, soft, no peritoneal signs. Absent: distended, tenderness - Extremities Exam Extremities exam: Present: warm, radial pulses palpable and symmetrical. Absent : calf tenderness, cyanotic, pedal edema - Neurological Exam Neurological exam: Present: altered, CN II-XII intact, no focal deficits. Absent: alert, oriented X3, pronater drift, facial droop, speech deficit - Skin Skin exam: Present: dry, erythema, intact, rash Labs: - Constitutional Vitals: Temp Pulse Resp BP Pulse Ox 98.0 F 103 22 104/74 99 04/12/17 11:34 04/12/17 12:14 04/12/17 11:40 04/12/17 11:40 04/12/17 11:40 General appearance: Present: no acute distress Internal Medicine: Result - Labs CBC & Chem 7: 04/12/17 07:29 04/12/17 07:29 Labs: Short CBC 04/12/17 Range/Units 07:29 WBC 8.4 (4.3-11.1) K/mcL Hgb 8.0 L (12.9-16.9) g/dL Hct 26.3 L (37.5-50.1) % Plt Count 23 L* (140-400) K/mcL Neutrophils # 5.4 (1.6-8.9) K/mcL BMP 04/12/17 07:29 Sodium 136 Potassium 4.3 D Chloride 98 Carbon Dioxide 28 BUN 25 H Creatinine 2.18 H Glucose 97 Calcium 8.9 - ABG Interpretation ABG results: ABG ABG pH 7.40 pH Units (7.32-7.45) 04/04/17 10:40 ABG pCO2 52 mmHg (35-45) H 04/04/17 10:40 ABG pO2 87 mmHg (85-104) 04/04/17 10:40 ABG O2 Saturation 96 % (95-98) 04/04/17 10:40 PT/INR, D-dimer PT 12.7 Seconds (9.4-12.1) H 04/10/17 12:25 - VTE Documentation of Mechanical Device: Venous foot pump, device Consult Discharge Plan - Plan Referrals: Eduard Chapin MD [Primary Care Provider] -
[2017-04-12] MEDS ORDERED: *HR* HYDROmorphone (PF) 1 MG/ML SYRINGE IVP PRN (13:06)
[2017-04-12] MEDS: Cefepime HCl 1,000 MG in Water for inj. (sterile) 10 ML IVP SCH (17:00)
[2017-04-13] MEDS: Insulin LISPRO 300 UNITS/3 ML VIAL SQ SCH ×6 (01:05→21:14)
[2017-04-13] MEDS: Ipratropium/Albuterol Neb 3 ML IH SCH ×4 (04:38→22:16)
[2017-04-13] MEDS: *HR* OxyCODONE Immed Rel 15 MG TABLET GTUBE PRN ×3 (04:38→21:12)
[2017-04-13 04:55] LABS: Hemoglobin 7.6 g/dL (12.9-16.9); Red Cell Distribution Width 19.9 % (11.5-14.5)
[2017-04-13 04:57] LABS: Hematocrit 24.3 % (37.5-50.1); Immature Platelets 21.4 % (1.1-6.1); Mean Corpuscular HGB Conc 31.3 g/dL (31.6-35.5); Mean Corpuscular Hemoglobin 30.9 pg (28.0-33.3); Mean Corpuscular Volume 98.8 fL (83.0-100.0); Red Blood Count 2.46 M/mcL (4.19-5.50)
[2017-04-13 05:10] LABS: Platelet Count 22 K/mcL (140-400)
[2017-04-13 05:38] LABS: Calcium 8.5 mg/dL (8.6-10.3); Potassium 4.8 mEq/L (3.5-5.1)
[2017-04-13] MEDS: Pantoprazole 40 MG VIAL IVP SCH (08:22)
[2017-04-13] MEDS: predniSONE 10 MG TABLET PO SCH (08:22)
[2017-04-13] MEDS: Renal Vitamin 1 MG CAPSULE PO SCH (08:22)
[2017-04-13] MEDS: Furosemide 40 MG TABLET PO SCH ×2 (08:22→21:12)
[2017-04-13] MEDS: Chlorhexidine Rinse 15 ML MOUTHWASH MM SCH ×2 (08:23→21:13)
[2017-04-13] MEDS: Miconazole 2% ointment 114 GM TUBE TP SCH ×2 (08:23→21:13)
--- NOTE | 2017-04-13 10:14 | Nephrology Progress Note ---
Date of Encounter: 04/13/17 Time of Encounter: 09:55 - Assessment and Plan (1) End stage renal disease on dialysis Current Visit: Yes Status: Chronic TOVA in setting chronic resp failure and CHF. Does not seem to recovering renal fct. Will chronic HD, three times weekly. Continue to monitor. Subjective Principal diagnosis: Sepsis Interval history: Alert, answers questions. Back to known baseline mental status. Trach>vent. Discussed with patient does not appear to have renal fct recovery at this point and will chronic HD three times weekly. Verbalized understanding. Objective - Vital Signs Vital signs: Vital Signs Temp Pulse Resp BP Pulse Ox 04/13/17 08:35 79 04/13/17 07:44 98.9 F 80 13 112/82 99 04/13/17 04:55 98.9 F 87 16 128/91 99 04/13/17 04:38 19 139/93 100 04/12/17 22:16 19 94 04/12/17 20:25 98.7 F 104 16 123/79 99 04/12/17 19:07 106 04/12/17 16:08 98.4 F 99 11 124/84 99 04/12/17 15:49 103 04/12/17 15:22 19 104/74 100 04/12/17 12:14 103 04/12/17 11:40 22 104/74 99 04/12/17 11:34 98.0 F 104 20 104/74 100 Intake and Output 04/12/17 04/13/17 04/13/17 23:59 07:59 15:59 Intake Total 200 / 200 Output Total 75 / 75 200 / 200 Balance 125 / 125 -200 / -200 Intake: Oral 200 / 200 Output: Catheter 75 / 75 200 / 200 Other: Weight 107.5 kg Blood Glucose* 228 115 Patient Weight 04/13/17 23:59 Weight 107.5 kg - General Appearance General appearance: Present: well-developed, well-nourished, appears started age EENT: Present: mucous membranes moist Neck: Present: no JVD Respiratory: Present: clear Cardiology: Present: edema, regular rate, regular rhythm Additional Comments: mild -1+ LE edema Gastrointestinal: Present: normoactive bowel sounds, no tenderness Integumentary: Present: warm and dry Neurologic: Present: alert and oriented x3 - Lab 04/13/17 04:24 04/13/17 04:24 Most recent lab results ABG pH 7.40 pH Units (7.32-7.45) 04/04/17 10:40 ABG pCO2 52 mmHg (35-45) H 04/04/17 10:40 ABG pO2 87 mmHg (85-104) 04/04/17 10:40 ABG HCO3 32 mEq/L (21-27) H 04/04/17 10:40 ABG O2 Saturation 96 % (95-98) 04/04/17 10:40 Calcium 8.5 mg/dL (8.6-10.3) L 04/13/17 04:24 Phosphorus 5.1 mg/dL (2.7-4.5) H 04/07/17 04:46 Magnesium 1.7 mg/dL (1.6-2.6) 04/03/17 13:13 - VTE Documentation of Mechanical Device: Venous foot pump, device Consult Discharge Plan - Plan Referrals: Eduard Chapin MD [Primary Care Provider] -
[2017-04-13] MEDS: Budesonide/Formoterol 160/4.5 MDI IH SCH ×2 (10:26→22:17)
[2017-04-13] MEDS ORDERED: Artificial Tears SOLN 15 ML BOTTLE BOTH EYES PRN (15:21)
[2017-04-13] MEDS: Cefepime HCl 1,000 MG in Water for inj. (sterile) 10 ML IVP SCH (17:34)
[2017-04-13] MEDS: *HR* LORazepam 0.5 MG TABLET GTUBE PRN (21:12)
--- NOTE | 2017-04-13 23:00 | Internal Med Progress Note ---
Date of Encounter: 04/13/17 Time of Encounter: 14:35 - Subjective Interval history: Interval changes: 04/08/17: Today he is very somnulent. He is new to me but RN states this is an acute change since yesterday. Overnight the bibiana HAMMOND was called to see him for tremors and myoclonic jerks as well as aphasia. Zyvox had been started yesterday afternoon and the bibiana HAMMOND was concerned for and interaction with Cymbalt. So both his Cymbalta and Zyvox were held. Cogentin was started last night. A Head CT was done and did not show acute changes. 04/09/2016: He remains very somnulent and respond to some verbal commands and to tactile stimuli. 04/10: Encephalopathy unchanged. Platelets dropped and small amount of blood suctioned 04/11: His mental status is now back to baseline and he is A&O x3. He c/o left hip pain. 04/12: He is very alert today and is sitting up talking. Still c/o hip pain 04/13: He's very A&O. He needs to clear secretions and is requiring deep suction. Reveiw of Cultures (taken from ID note): urine culture 03/09 grew VRE: unclear what he was treated with at that time ( reviewed records from [facility]) urine culture 04/07 and 04/06 grew enterococcus awaiting sensitivities Not sure if this is a true UTI versus colonization. patient has received 1 dose of vancomycin versus discontinued due to being end- stage renal disease dialysis dependent. Also received 1 dose of Zyvox which is discontinued due to suspected interaction with Cymbalta resulting in myoclonic jerks, tremors, altered mental status. Currently he is started on 04/08/17 daptomycin at 680 mg daily . Urine cultures positive for VRE. Assessment and Plan: Acute change in mental status / Encephalopathy and possible new onset tremors/ myoclonic jerks: Head scan neg for acute process.Neurology consulted and EEG ordered per Neurlogy request. No seizure activity noted. . Possible drug interaction Zyvox and Cymbolta. 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 Sputum cultures positive for Serratia and P. aerug. Concern for PNA. Cefepime and Levaquin were initially started at time of admission. Levaquin d/c'd. COPD (chronic obstructive pulmonary disease) Inhaled albuterol and ipratropium. Acute bronchitis due to Rhinovirus Supportive care. VRE UTI: Zyvox stopped and Daptomycin started. ID consulted for abx guidance. Per ID note we will continue daptomycin with renal dosing adjusted by pharmacy to 680mg [id number]. Patient will be treated for total of 7 days (last dose on ). Appreciate ID and [facility] assistance. End stage renal disease on dialysis Intermittent hemodialysis per nephrology. Avoid nephrotoxins. Nephrology feels his renal function is not recovering and he will likely require chronic HD , three times weekly Anemia in chronic renal disease Maintain hemoglobin above 8. S/p transfusion of 1 unit PRBC T2DM (type 2 diabetes mellitus) Insulin sliding scale. Diabetic diet. Acute on chronic systolic (congestive) heart failure Has a history of chronic systolic heart failure. Initial chest x-ray has evidence of pulmonary edema and pleural effusion.. He has 2+ edema. Echocardiogram obtained. Continue with Lasix. Daily weights. Strict I/O. Secondary thrombocytopenia He has thrombocytopenia platelet, was 23 at platelet transfusion on and increased to 40 again back to 25 but he does not have any acute bleeding continue to monitor. He had a AML. Check PT/PTT and Fibrinogen. Transfuse platelets Coags slightly increased but fiben normal. His platelets were unchanged s/p transfusion. It was discovered today that he'd previously been on Dapsone which was restarted. 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 Prednisone was restarted today 30 mg Qday. We will try to find out from [facility] if he is normally taking additional insuppressive medications besides prednisone which was restarted yesterday. Disposition: He should be ready to retuo his previous NH when PNA resolved and decision made about HD. Probably toward the end of this coming week. Physical exam: General appearance: Present: no acute distress - Head Head exam: Present: atraumatic, normocephalic - Eye Eye exam: Present: nystagmus, conjuntiva pink, sclera anicteric Pupils: Present: PERRL. Absent: unequal - Neck Neck exam general surgery: Present: supple, trachea midline. Absent: lymphadenopathy - Respiratory Respiratory exam: Present: CTAB. Thisecretionssuctioned. Absent: accessory muscle use, rales, rhonchi, wheezes - Cardiovascular Cardiovascular exam: Present: RRR, +S1, +S2. Absent: diastolic murmur, gallop, rubs, systolic murmur - GI/Abdominal GI/Abdominal exam: Present: normal bowel sounds, soft, no peritoneal signs. Absent: distended, tenderness - Extremities Exam Extremities exam: Present: warm, radial pulses palpable and symmetrical. Absent : calf tenderness, cyanotic, pedal edema - Neurological Exam Neurological exam: Present: altered, CN II-XII intact, no focal deficits. Absent: alert, oriented X3, pronater drift, facial droop, speech deficit - Skin Skin exam: Present: dry, erythema, intact, rash Labs: - Constitutional Vitals: Temp Pulse Resp BP Pulse Ox 98.1 F 103 19 135/97 99 04/13/17 20:27 04/13/17 20:27 04/13/17 22:16 04/13/17 22:16 04/13/17 22:16 General appearance: Present: no acute distress Internal Medicine: Result - Labs CBC & Chem 7: 04/13/17 04:24 04/13/17 04:24 Labs: Short CBC 04/13/17 Range/Units 04:24 WBC 6.9 (4.3-11.1) K/mcL Hgb 7.6 L (12.9-16.9) g/dL Hct 24.3 L (37.5-50.1) % Plt Count 22 L* (140-400) K/mcL BMP 04/13/17 04:24 Sodium 135 L Potassium 4.8 Chloride 98 Carbon Dioxide 23 BUN 39 H Creatinine 2.80 H Glucose 145 H Calcium 8.5 L - ABG Interpretation ABG results: ABG ABG pH 7.40 pH Units (7.32-7.45) 04/04/17 10:40 ABG pCO2 52 mmHg (35-45) H 04/04/17 10:40 ABG pO2 87 mmHg (85-104) 04/04/17 10:40 ABG O2 Saturation 96 % (95-98) 04/04/17 10:40 PT/INR, D-dimer PT 12.7 Seconds (9.4-12.1) H 04/10/17 12:25 - VTE Documentation of Mechanical Device: Venous foot pump, device Consult Discharge Plan - Plan Referrals: Eduard Chapin MD [Primary Care Provider] -
[2017-04-14] MEDS: Insulin LISPRO 300 UNITS/3 ML VIAL SQ SCH ×7 (00:36→23:52)
[2017-04-14] MEDS: Ipratropium/Albuterol Neb 3 ML IH SCH ×4 (03:42→22:24)
[2017-04-14 03:54] LABS: Mean Corpuscular Hemoglobin 30.6 pg (28.0-33.3)
[2017-04-14 03:56] LABS: Hematocrit 24.3 % (37.5-50.1); Hemoglobin 7.5 g/dL (12.9-16.9); Immature Platelets 24.8 % (1.1-6.1); Mean Corpuscular HGB Conc 30.9 g/dL (31.6-35.5); Mean Corpuscular Volume 99.2 fL (83.0-100.0); Red Blood Count 2.45 M/mcL (4.19-5.50); Red Cell Distribution Width 19.9 % (11.5-14.5)
[2017-04-14 04:05] LABS: Platelet Count 22 K/mcL (140-400)
[2017-04-14 05:11] LABS: Calcium 8.5 mg/dL (8.6-10.3); Potassium 5.5 mEq/L (3.5-5.1)
[2017-04-14] MEDS: *HR* OxyCODONE Immed Rel 15 MG TABLET GTUBE PRN ×3 (06:07→21:08)
[2017-04-14] MEDS: Pantoprazole 40 MG VIAL IVP SCH (08:51)
[2017-04-14] MEDS: predniSONE 10 MG TABLET PO SCH (08:51)
[2017-04-14] MEDS: Chlorhexidine Rinse 15 ML MOUTHWASH MM SCH ×2 (08:51→21:07)
[2017-04-14] MEDS: *HR* LORazepam 0.5 MG TABLET GTUBE PRN ×3 (08:51→21:08)
[2017-04-14] MEDS: Renal Vitamin 1 MG CAPSULE PO SCH (08:52)
[2017-04-14] MEDS: Miconazole 2% ointment 114 GM TUBE TP SCH ×2 (08:52→21:08)
[2017-04-14] MEDS: Furosemide 40 MG TABLET PO SCH ×2 (08:52→21:08)
[2017-04-14] MEDS: DAPTOMYCIN IVPB SCH (09:07)
[2017-04-14] MEDS: SODIUM CHLORIDE 0.9% IVPB SCH (09:07)
[2017-04-14] MEDS ORDERED: 0.9 % Sodium Chloride 250 ML IVC PRN (09:28)
[2017-04-14] MEDS ORDERED: *HR* Heparin 10,000 UNIT/10 ML VIAL IV PRN (09:36)
--- NOTE | 2017-04-14 09:43 | Infectious Disease Progress No ---
Date of Encounter: 04/14/17 Time of Encounter: 09:40 - Assessment and Plan (1) Sepsis Current Visit: Yes Status: Acute three sirs cirteria of tachycardia, leukocytosis, tachypnea. All have resolved Secondary to pneumonia and VRE UTI. Qualifiers: Sepsis type: Pseudomonas Qualified Code(s): A41.52 - Sepsis due to Pseudomonas (2) VRE (vancomycin-resistant Enterococci) infection Current Visit: Yes Status: Acute urine culture 03/09 grew VRE: unclear what he was treated with at that time ( reviewed records from [facility]) urine culture 04/07 and 04/06 grew enterococcus awaiting sensitivities Not sure if this is a true UTI versus colonization. patient has received 1 dose of vancomycin versus discontinued due to being end- stage renal disease dialysis dependent. Also received 1 dose of Zyvox which is discontinued due to suspected interaction with Cymbalta resulting in myoclonic jerks, tremors, altered mental status. Currently he is started on 04/08/17 daptomycin at 680 mg daily . Urine cultures positive for VRE. Plan: continue daptomycin renally dose adjusted as per pharmacy to 680mg [id number]. Patient will be treated for total of 7 days. (last dose on 04/14/17) (3) Pneumonia Current Visit: Yes Status: Acute CXr shows cardiomegaly, pulmonary congestion, bilateral infiltrates. tracheostomy, ventilator depenedent (placed jan 2017 at [facility] after acute respiratory failure 2nd to influenza) patient presented with increasing O2 requirements, increasing secretions, and hypoxia In February patient was hospitalized at [facility]. CT chest 03/09 showed left lung total atelectasis and loculated effusions. At that time he was diagnosed with multifocal pneumonia. CXR 04/03/17 shows interval improvement from 03/09/17 ( complete opacification of left hemithorax, pulmonary vascular congestion). Initially patient was started on vancomycin and cefepime Vancomycin was discontinued due to Patient history of end-stage renal disease, dialysis dependent. Cefepime 1000mg daily was continued (day 6). Sputum culture grew Serratia marcescens and Pseudomonas aeruginosa (resistant to levaquin). both sensitive to cefepime all blood cultres negative x6 also started on daptomycin for VRE (patient failed zyvox due to suspected interaction with cymbalta caused AMS, tremors, myoclonic jerks). respiratory status continues to be stable over weekend plan: continue cefepime 1000mg daily total 14 days (started on 04/03/17) renally dosed as per pharmacy. Qualifiers: Pneumonia type: due to unspecified organism Laterality: left Lung location: lower lobe of lung Qualified Code(s): J18.1 - Lobar pneumonia, unspecified organism (4) Acute respiratory failure Current Visit: Yes Status: Resolved 2nd to PNA, systolic chf exacerbation Resolved management of chf as per primary plan as above. tracheotomy palced in jan [address] [facility] 2nd to influenza. continue duonebs, symbicort. Qualifiers: Respiratory failure complication: hypoxia and hypercapnia Qualified Code(s) : J96.01 - Acute respiratory failure with hypoxia; J96.02 - Acute respiratory failure with hypercapnia; J96.02 - Acute respiratory failure with hypercapnia; J96.02 - Acute respiratory failure with hypercapnia (5) End stage renal disease on dialysis Current Visit: Yes Status: Chronic dialysis dependent ESRD starting jan 2017. unclear if he had CKD before hand. on dialysis nehrology following (6) Acute bronchitis due to Rhinovirus Current Visit: Yes Status: Acute RIP + for rhinovirus continue supportive measures including duonebs, symbicort. (7) Pressure ulcer of back Current Visit: Yes Status: Acute dressed no discharge change bed position Q2h as per primary Qualifiers: Pressure ulcer stage: stage 2 Qualified Code(s): L89.102 - Pressure ulcer of unspecified part of back, stage 2 (8) Acute on chronic systolic (congestive) heart failure Current Visit: Yes Status: Acute (9) AML (acute myeloid leukemia) Current Visit: Yes Status: Acute History of AML status post bone marrow transplant. Qualifiers: Leukemia Active/Remission status: in remission Qualified Code(s): C92.01 - Acute myeloblastic leukemia, in remission; C92.61 - Acute myeloid leukemia with [id number] in remission; C92.A1 - Acute myeloid leukemia with multilineage dysplasia, in remission (10) Erythema of lower extremity Current Visit: Yes Status: Acute b/l symmetric erythema of LE. no pus like discharge Lower extremity erythema, skin changes secondary to [id number] disease after bone marrow transplant. Patient on prednisone 30 mg daily. (11) Anemia in chronic renal disease Current Visit: Yes Status: Acute As per primary. Qualifiers: Chronic kidney disease stage: on chronic dialysis Qualified Code(s): N18.6 - End stage renal disease; D63.1 - Anemia in chronic kidney disease; D63.1 - Anemia in chronic kidney disease; Z99.2 - Dependence on renal dialysis; Z99.2 - Dependence on renal dialysis; Z99.2 - Dependence on renal dialysis; Z99.2 - Dependence on renal dialysis (12) DVT prophylaxis Current Visit: Yes Status: Acute As per primary. - Subjective Interval history: Patient is able to converse. He is following commands. He denies any complaints today. Alert and oriented 3. No acute events over the weekend. He denies chest pain, shortness of breath, nausea, vomiting, diarrhea. Infect Dis PN-Objective Data - Labs CBC & Chem 7: 04/14/17 03:34 04/14/17 03:34 Labs: Laboratory Results - last 24 hr 04/13/17 04/13/17 04/13/17 04:53 07:41 11:41 WBC RBC Hgb Hct MCV MCH MCHC RDW Plt Count MPV Immature Plt Fraction Sodium Potassium Chloride Carbon Dioxide BUN Creatinine Est GFR ( Amer) Est GFR (Non-Af Amer) BUN/Creatinine Ratio Glucose POC Glucose 148 H 115 H 219 H Calculated Osmolality Calcium 04/13/17 04/13/17 04/14/17 16:20 20:29 00:35 WBC RBC Hgb Hct MCV MCH MCHC RDW Plt Count MPV Immature Plt Fraction Sodium Potassium Chloride Carbon Dioxide BUN Creatinine Est GFR ( Amer) Est GFR (Non-Af Amer) BUN/Creatinine Ratio Glucose POC Glucose 255 H 222 H 113 H Calculated Osmolality Calcium 04/14/17 04/14/17 04/14/17 03:34 03:34 04:52 WBC 7.4 RBC 2.45 L Hgb 7.5 L Hct 24.3 L MCV 99.2 MCH 30.6 MCHC 30.9 L RDW 19.9 H Plt Count 22 L* MPV TNP Immature Plt Fraction 24.8 H Sodium 131 L Potassium 5.5 H Chloride 95 L Carbon Dioxide 23 BUN 51 H Creatinine 3.14 H Est GFR ( Amer) 26 L Est GFR (Non-Af Amer) 21 L BUN/Creatinine Ratio 16 Glucose 118 H POC Glucose 108 H Calculated Osmolality 287 Calcium 8.5 L Cultures: Cultures 04/07/17 11:45 Urine Culture - Final Urine,[place] Vancomycin Resistant Enterococcus faecium 04/03/17 13:35 Blood Culture - Final Peripheral Venipuncture No growth. 04/03/17 13:35 Blood Culture - Final Peripheral Venipuncture No growth. 04/07/17 12:00 Blood Culture - Preliminary Central Venous Catheter No growth. 04/07/17 12:00 Blood Culture - Preliminary Peripheral Venipuncture No growth. 04/06/17 15:05 Urine Culture - Final Urine,[place] Enterococcus faecium 04/04/17 14:00 Sputum Culture - Final Sputum Pseudomonas aeruginosa Serratia marcescens Serology 04/07/17 04/05/17 04/04/17 Range/Units 11:45 14:20 04:02 Urine Color Yellow Yellow (Yellow) Urine Clarity Cloudy A Cloudy A (Clear) Urine pH 6.0 6.5 (5.0-8.0) pH Units Ur Specific [place] 1.018 1.012 (1.010-1.025) Urine Protein >=300 H >=300 H (Neg-Trace) mg/dL Urine Glucose (UA) 100 H 100 H (Normal) mg/dL Urine Ketones Trace H Negative (Negative) mg/dL Urine Blood Large H Moderate H (Negative) Urine Nitrite Negative Negative (Negative) Urine Bilirubin Negative Negative (Negative) Urine Urobilinogen Normal Normal (Normal) mg/dL Ur Leukocyte Esterase Moderate H Small H (Negative) Urine Microscopic RBC TNTC H 5-15 H (0-3) per hpf Urine Microscopic WBC TNTC H TNTC H (0-3) per hpf Ur Squamous Epith Cells Moderate H Moderate H (None-Few) per lpf Urine Bacteria Many H Few (None-Few) per hpf Hyaline Casts None Seen Few (None-Few) per lpf Ur Culture Indicated? YES A (NO) Chlamy pneumoniae PCR Not Detected (Not Detect) Adenovirus (PCR) Not Detected (Not Detect) B. pertussis DNA (PCR) Not Detected (Not Detect) B.parapertussis DNA PCR Not Detected (Not Detect) Coronavirus OC43 (PCR) Not Detected (Not Detect) Coronavirus HKU1 (PCR) Not Detected (Not Detect) Coronavirus 229E (PCR) Not Detected (Not Detect) Coronavirus NL63 (PCR) Not Detected (Not Detect) Hep Bs Antigen (Nonreactive) Hep Bs Antibody mIU/mL Human Metapneumovir PCR Not Detected (Not Detect) Influenza A (H1) PCR Not Detected (Not Detect) Influ A (H1N1/09) PCR Not Detected (Not Detect) Influenza A (H3) PCR Not Detected (Not Detect) Influenza A Untype (PCR) Not Detected (Not Detect) Influenza Type B (PCR) Not Detected (Not Detect) M.pneumoniae DNA (PCR) Not Detected (Not Detect) Parainfluenza 1 (PCR) Not Detected (Not Detect) Parainfluenza 2 (PCR) Not Detected (Not Detect) Parainfluenza 3 (PCR) Not Detected (Not Detect) Parainfluenza 4 (PCR) Not Detected (Not Detect) RSV (PCR) Not Detected (Not Detect) Entero/Rhino (PCR) DETECTED A (Not Detect) 04/03/17 Range/Units 13:13 Urine Color (Yellow) Urine Clarity (Clear) Urine pH (5.0-8.0) pH Units Ur Specific [place] (1.010-1.025) Urine Protein (Neg-Trace) mg/dL Urine Glucose (UA) (Normal) mg/dL Urine Ketones (Negative) mg/dL Urine Blood (Negative) Urine Nitrite (Negative) Urine Bilirubin (Negative) Urine Urobilinogen (Normal) mg/dL Ur Leukocyte Esterase (Negative) Urine Microscopic RBC (0-3) per hpf Urine Microscopic WBC (0-3) per hpf Ur Squamous Epith Cells (None-Few) per lpf Urine Bacteria (None-Few) per hpf Hyaline Casts (None-Few) per lpf Ur Culture Indicated? (NO) Chlamy pneumoniae PCR (Not Detect) Adenovirus (PCR) (Not Detect) B. pertussis DNA (PCR) (Not Detect) B.parapertussis DNA PCR (Not Detect) Coronavirus OC43 (PCR) (Not Detect) Coronavirus HKU1 (PCR) (Not Detect) Coronavirus 229E (PCR) (Not Detect) Coronavirus NL63 (PCR) (Not Detect) Hep Bs Antigen Nonreactive (Nonreactive) Hep Bs Antibody 26.47 mIU/mL Human Metapneumovir PCR (Not Detect) Influenza A (H1) PCR (Not Detect) Influ A (H1N1/09) PCR (Not Detect) Influenza A (H3) PCR (Not Detect) Influenza A Untype (PCR) (Not Detect) Influenza Type B (PCR) (Not Detect) M.pneumoniae DNA (PCR) (Not Detect) Parainfluenza 1 (PCR) (Not Detect) Parainfluenza 2 (PCR) (Not Detect) Parainfluenza 3 (PCR) (Not Detect) Parainfluenza 4 (PCR) (Not Detect) RSV (PCR) (Not Detect) Entero/Rhino (PCR) (Not Detect) Exam - Constitutional Vitals: Temp Pulse Resp BP Pulse Ox 97.8 F 86 14 110/77 97 04/14/17 07:29 04/14/17 07:29 04/14/17 07:29 04/14/17 07:29 04/14/17 07:29 - Additional findings Additional findings: General: Obese male. absent lip fasciculations. Heart: regular rate and rhythm Lungs: Clear to auscultation anteriorly. Abdomen: Soft nontender,positive bowel sounds with mild distention. Skin: Bilateral lower extremity erythema likely secondary to venous stasis. stable urogenital: Chronic Maza in place. No evidence of erythema. Back: Patient has two stage II pressure ulcers which are dressed. Extremities: Bilateral lower extremity pedal edema, erythema up to knee. stable Neuro: He is following commands. patient is verbal. Alert oriented 3 Vascular: Pedal and radial pulses 2 out of 4 - VTE Documentation of Mechanical Device: Venous foot pump, device Consult Discharge Plan - Plan Referrals: Eduard Chapin MD [Primary Care Provider] - - Attending Attestation I examined this patient and my medical decision-making was reviewed with the Resident Physician. I agree with the documented findings, disposition and treatment plan as described except to the extent set forth below.
[2017-04-14] MEDS ORDERED: 0.9 % Sodium Chloride 1,000 ML PRIME SCH (09:45)
[2017-04-14] MEDS: Budesonide/Formoterol 160/4.5 MDI IH SCH ×2 (10:56→22:25)
--- NOTE | 2017-04-14 12:29 | Nephrology Progress Note ---
Date of Encounter: 04/14/17 Time of Encounter: 12:20 - Assessment and Plan (1) End stage renal disease on dialysis Current Visit: Yes Status: Chronic TOVA in setting chronic resp failure and CHF. Does not seem to recovering renal fct. Will chronic HD, three times weekly. HD today, orders given. Continue to monitor. Subjective Principal diagnosis: Sepsis Interval history: Seen on HD.Alert, answers questions. Back to known baseline mental status. Trach>vent. Objective - Vital Signs Vital signs: Vital Signs Temp Pulse Resp BP Pulse Ox 04/14/17 10:40 120/81 04/14/17 10:25 97.1 F L 18 140/90 04/14/17 07:29 97.8 F 86 14 110/77 97 04/14/17 04:55 98.1 F 84 16 123/81 95 04/14/17 03:42 18 111/79 96 04/14/17 00:37 98 F 84 14 111/79 96 04/13/17 22:16 19 135/97 99 04/13/17 20:27 98.1 F 103 16 135/97 100 04/13/17 20:06 19 134/92 98 04/13/17 16:17 98.4 F 96 12 134/92 98 04/13/17 15:31 16 94 04/13/17 15:22 94 Intake and Output 04/13/17 04/14/17 04/14/17 23:59 07:59 15:59 Intake Total 410 / 410 100 / 100 720 / 720 Output Total 600 / 600 Balance 410 / 410 -500 / -500 720 / 720 Intake: IV Fluids Maxipime 1,000 MG In Water for inj. (sterile) 10 ML @ 150 mls/ hr IVP Q24H [facility] Rx#:[id number] Oral 400 / 400 100 / 100 120 / 120 Intake, Rinseback and Flushes 600 / 600 Output: Catheter 600 / 600 Other: Weight 107.7 kg Blood Glucose* 222 126 Hemodialysis Net Fluid Removed 298 (mL) Patient Weight 04/14/17 23:59 Weight 107.7 kg - General Appearance General appearance: Present: well-developed, well-nourished, appears started age EENT: Present: mucous membranes moist Neck: Present: no JVD Respiratory: Present: rhonchi Cardiology: Present: edema, regular rate, regular rhythm Gastrointestinal: Present: normoactive bowel sounds Integumentary: Present: warm and dry Psychiatric: Present: mood/affect appropriate, cooperative - Lab 04/14/17 03:34 04/14/17 03:34 Most recent lab results ABG pH 7.40 pH Units (7.32-7.45) 04/04/17 10:40 ABG pCO2 52 mmHg (35-45) H 04/04/17 10:40 ABG pO2 87 mmHg (85-104) 04/04/17 10:40 ABG HCO3 32 mEq/L (21-27) H 04/04/17 10:40 ABG O2 Saturation 96 % (95-98) 04/04/17 10:40 Calcium 8.5 mg/dL (8.6-10.3) L 04/14/17 03:34 Phosphorus 5.1 mg/dL (2.7-4.5) H 04/07/17 04:46 Magnesium 1.7 mg/dL (1.6-2.6) 04/03/17 13:13 - VTE Documentation of Mechanical Device: Venous foot pump, device Consult Discharge Plan - Plan Referrals: Eduard Chapin MD [Primary Care Provider] -
--- NOTE | 2017-04-14 15:34 | Internal Med Progress Note ---
Date of Encounter: 04/14/17 Time of Encounter: 15:34 - Subjective Interval history: Interval changes: 04/08/17: Today he is very somnulent. He is new to me but RN states this is an acute change since yesterday. Overnight the bibiana HAMMOND was called to see him for tremors and myoclonic jerks as well as aphasia. Zyvox had been started yesterday afternoon and the bibiana HAMMOND was concerned for and interaction with Cymbalt. So both his Cymbalta and Zyvox were held. Cogentin was started last night. A Head CT was done and did not show acute changes. 04/09/2016: He remains very somnulent and respond to some verbal commands and to tactile stimuli. 04/10: Encephalopathy unchanged. Platelets dropped and small amount of blood suctioned 04/11: His mental status is now back to baseline and he is A&O x3. He c/o left hip pain. 04/12: He is very alert today and is sitting up talking. Still c/o hip pain 04/13: He's very A&O. He needs to clear secretions and is requiring deep suction. 04/14: He's very A&O. HD today.. Last dose of Dapto today. Reveiw of Cultures (taken from ID note): urine culture 03/09 grew VRE: unclear what he was treated with at that time ( reviewed records from [facility]) urine culture 04/07 and 04/06 grew enterococcus awaiting sensitivities Not sure if this is a true UTI versus colonization. patient has received 1 dose of vancomycin versus discontinued due to being end- stage renal disease dialysis dependent. Also received 1 dose of Zyvox which is discontinued due to suspected interaction with Cymbalta resulting in myoclonic jerks, tremors, altered mental status. Currently he is started on 04/08/17 daptomycin at 680 mg daily . Urine cultures positive for VRE. Assessment and Plan: Acute change in mental status / Encephalopathy and possible new onset tremors/ myoclonic jerks: Head scan neg for acute process.Neurology consulted and EEG ordered per Neurlogy request. No seizure activity noted. . Possible drug interaction Zyvox and Cymbolta. 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 Sputum cultures positive for Serratia and P. aerug. Concern for PNA. Cefepime and Levaquin were initially started at time of admission. Levaquin d/c'd. COPD (chronic obstructive pulmonary disease) Inhaled albuterol and ipratropium. Acute bronchitis due to Rhinovirus Supportive care. VRE UTI: Zyvox stopped and Daptomycin started. ID consulted for abx guidance. Per ID note we will continue daptomycin with renal dosing adjusted by pharmacy to 680mg [id number]. Patient will be treated for total of 7 days (last dose on ). Appreciate ID and [facility] assistance. End stage renal disease on dialysis Intermittent hemodialysis per nephrology. Avoid nephrotoxins. Nephrology feels his renal function is not recovering and he will likely require chronic HD , three times weekly OP HD needs arranged . He has temporary dialysis cath. Anemia in chronic renal disease Maintain hemoglobin above 8. S/p transfusion of 1 unit PRBC T2DM (type 2 diabetes mellitus) Insulin sliding scale. Diabetic diet. Acute on chronic systolic (congestive) heart failure Has a history of chronic systolic heart failure. Initial chest x-ray has evidence of pulmonary edema and pleural effusion.. He has 2+ edema. Echocardiogram obtained. Continue with Lasix. Daily weights. Strict I/O. Secondary thrombocytopenia He has thrombocytopenia platelet, was 23 at platelet transfusion on and increased to 40 again back to 25 but he does not have any acute bleeding continue to monitor. He had a AML. Check PT/PTT and Fibrinogen. Transfuse platelets Coags slightly increased but fiben normal. His platelets were unchanged s/p transfusion. It was discovered today that he'd previously been on Dapsone which was restarted. 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 Prednisone was restarted today 30 mg Qday. We will try to find out from [facility] if he is normally taking additional insuppressive medications besides prednisone which was restarted yesterday. Disposition: He should be ready to retuo his previous NH when PNA resolved and decision made about HD. Probably toward the end of this coming week. Physical exam: General appearance: Present: no acute distress - Head Head exam: Present: atraumatic, normocephalic - Eye Eye exam: Present: nystagmus, conjuntiva pink, sclera anicteric Pupils: Present: PERRL. Absent: unequal - Neck Neck exam general surgery: Present: supple, trachea midline. Absent: lymphadenopathy - Respiratory Respiratory exam: Present: CTAB. Thisecretionssuctioned. Absent: accessory muscle use, rales, rhonchi, wheezes - Cardiovascular Cardiovascular exam: Present: RRR, +S1, +S2. Absent: diastolic murmur, gallop, rubs, systolic murmur - GI/Abdominal GI/Abdominal exam: Present: normal bowel sounds, soft, no peritoneal signs. Absent: distended, tenderness - Extremities Exam Extremities exam: Present: warm, radial pulses palpable and symmetrical. Absent : calf tenderness, cyanotic, pedal edema - Neurological Exam Neurological exam: Present: altered, CN II-XII intact, no focal deficits. Absent: alert, oriented X3, pronater drift, facial droop, speech deficit - Skin Skin exam: Present: dry, erythema, intact, rash Labs: - Constitutional Vitals: Temp Pulse Resp BP Pulse Ox 97.9 F 86 22 127/84 97 04/14/17 13:40 04/14/17 07:29 04/14/17 13:40 04/14/17 13:40 04/14/17 07:29 General appearance: Present: no acute distress Internal Medicine: Result - Labs CBC & Chem 7: 04/14/17 03:34 04/14/17 03:34 Labs: Short CBC 04/14/17 Range/Units 03:34 WBC 7.4 (4.3-11.1) K/mcL Hgb 7.5 L (12.9-16.9) g/dL Hct 24.3 L (37.5-50.1) % Plt Count 22 L* (140-400) K/mcL BMP 04/14/17 03:34 Sodium 131 L Potassium 5.5 H Chloride 95 L Carbon Dioxide 23 BUN 51 H Creatinine 3.14 H Glucose 118 H Calcium 8.5 L - ABG Interpretation ABG results: ABG ABG pH 7.40 pH Units (7.32-7.45) 04/04/17 10:40 ABG pCO2 52 mmHg (35-45) H 04/04/17 10:40 ABG pO2 87 mmHg (85-104) 04/04/17 10:40 ABG O2 Saturation 96 % (95-98) 04/04/17 10:40 PT/INR, D-dimer PT 12.7 Seconds (9.4-12.1) H 04/10/17 12:25 - VTE Documentation of Mechanical Device: Venous foot pump, device Consult Discharge Plan - Plan Referrals: Eduard Chapin MD [Primary Care Provider] -
[2017-04-14] MEDS: Cefepime HCl 1,000 MG in Water for inj. (sterile) 10 ML IVP SCH (16:47)
[2017-04-15] MEDS: Insulin LISPRO 300 UNITS/3 ML VIAL SQ SCH ×5 (04:29→20:06)
[2017-04-15] MEDS: Ipratropium/Albuterol Neb 3 ML IH SCH ×4 (05:02→21:33)
[2017-04-15 07:40] LABS: Calcium 8.4 mg/dL (8.6-10.3); Potassium 4.8 mEq/L (3.5-5.1)
[2017-04-15 07:42] LABS: Basophils % 0.4 %; Eosinophils # 0.1 K/mcL (0.0-0.6); Eosinophils % 1.2 %; Hematocrit 22.8 % (37.5-50.1); Hemoglobin 7.1 g/dL (12.9-16.9); Immature Granulocytes % 3.9 % (0-4); Immature Platelets 22.7 % (1.1-6.1); Lymphocytes # 2.4 K/mcL (0.6-4.6); Lymphocytes % 30.8 %; Mean Corpuscular HGB Conc 31.1 g/dL (31.6-35.5); Mean Corpuscular Hemoglobin 30.9 pg (28.0-33.3); Mean Corpuscular Volume 99.1 fL (83.0-100.0); Mean Platelet Volume 13.4 fL (9.4-12.4); Monocytes # 1.5 K/mcL (0.0-1.3); Monocytes % 19.7 %; Neutrophils # 3.4 K/mcL (1.6-8.9); Nucleated Red Blood Cells 1.6 /100 WBC (0); Red Cell Distribution Width 20.7 % (11.5-14.5)
[2017-04-15 08:05] LABS: Platelet Count 19 K/mcL (140-400)
[2017-04-15 09:01] LABS: Platelet Estimate Decreased (Normal)
[2017-04-15] MEDS: Chlorhexidine Rinse 15 ML MOUTHWASH MM SCH ×2 (09:09→20:04)
[2017-04-15] MEDS: *HR* LORazepam 0.5 MG TABLET GTUBE PRN ×2 (09:10→20:04)
[2017-04-15] MEDS: Furosemide 40 MG TABLET PO SCH ×2 (09:10→20:04)
[2017-04-15] MEDS: predniSONE 10 MG TABLET PO SCH (09:10)
[2017-04-15] MEDS: Renal Vitamin 1 MG CAPSULE PO SCH (09:10)
[2017-04-15] MEDS: Miconazole 2% ointment 114 GM TUBE TP SCH ×2 (09:12→20:05)
--- NOTE | 2017-04-15 09:32 | Infectious Disease Progress No ---
Date of Encounter: 04/15/17 Time of Encounter: 09:30 - Assessment and Plan (1) Sepsis Current Visit: Yes Status: Acute three sirs cirteria of tachycardia, leukocytosis, tachypnea. All have resolved Secondary to pneumonia and VRE UTI. Qualifiers: Sepsis type: Pseudomonas Qualified Code(s): A41.52 - Sepsis due to Pseudomonas (2) VRE (vancomycin-resistant Enterococci) infection Current Visit: Yes Status: Acute urine culture 03/09 grew VRE: unclear what he was treated with at that time ( reviewed records from [facility]) urine culture 04/07 and 04/06 grew VRE UTI versus colonization. patient has received 1 dose of vancomycin versus discontinued due to being end- stage renal disease dialysis dependent. Also received 1 dose of Zyvox which is discontinued due to suspected interaction with Cymbalta resulting in myoclonic jerks, tremors, altered mental status. Plan: finished 7 days of daptomycin on 04/14/2017 (3) Pneumonia Current Visit: Yes Status: Acute CXr shows cardiomegaly, pulmonary congestion, bilateral infiltrates. tracheostomy, ventilator depenedent (placed jan 2017 at [facility] after acute respiratory failure 2nd to influenza) patient presented with increasing O2 requirements, increasing secretions, and hypoxia In February patient was hospitalized at [facility]. CT chest 03/09 showed left lung total atelectasis and loculated effusions. At that time he was diagnosed with multifocal pneumonia. CXR 04/03/17 shows interval improvement from 03/09/17 ( complete opacification of left hemithorax, pulmonary vascular congestion). Initially patient was started on vancomycin and cefepime Vancomycin was discontinued due to Patient history of end-stage renal disease, dialysis dependent. Sputum culture grew Serratia marcescens and Pseudomonas aeruginosa (resistant to levaquin). both sensitive to cefepime all blood cultres negative x6 respiratory status continues to be stable plan: continue cefepime 1000mg daily for total 14 days (last day 04/17/17) renally dosed as per pharmacy. Qualifiers: Pneumonia type: due to unspecified organism Laterality: left Lung location: lower lobe of lung Qualified Code(s): J18.1 - Lobar pneumonia, unspecified organism (4) Acute respiratory failure Current Visit: Yes Status: Resolved 2nd to PNA, systolic chf exacerbation Resolved management of chf as per primary plan as above. tracheotomy palced in jan 2017 at [facility] 2nd to influenza. continue duonebs, symbicort. Qualifiers: Respiratory failure complication: hypoxia and hypercapnia Qualified Code(s) : J96.01 - Acute respiratory failure with hypoxia; J96.02 - Acute respiratory failure with hypercapnia; J96.02 - Acute respiratory failure with hypercapnia; J96.02 - Acute respiratory failure with hypercapnia (5) End stage renal disease on dialysis Current Visit: Yes Status: Chronic dialysis dependent ESRD starting jan 2017. unclear if he had CKD before hand. on dialysis nehrology following (6) Acute bronchitis due to Rhinovirus Current Visit: Yes Status: Resolved RIP + for rhinovirus continue supportive measures including duonebs, symbicort. (7) Pressure ulcer of back Current Visit: Yes Status: Acute dressed no discharge change bed position Q2h as per primary Qualifiers: Pressure ulcer stage: stage 2 Qualified Code(s): L89.102 - Pressure ulcer of unspecified part of back, stage 2 (8) Acute on chronic systolic (congestive) heart failure Current Visit: Yes Status: Acute (9) AML (acute myeloid leukemia) Current Visit: Yes Status: Acute History of AML status post bone marrow transplant. Qualifiers: Leukemia Active/Remission status: in remission Qualified Code(s): C92.01 - Acute myeloblastic leukemia, in remission; C92.61 - Acute myeloid leukemia with [id number] in remission; C92.A1 - Acute myeloid leukemia with multilineage dysplasia, in remission (10) Erythema of lower extremity Current Visit: Yes Status: Acute b/l symmetric erythema of LE. no pus like discharge Lower extremity erythema, skin changes secondary to [id number] disease after bone marrow transplant. Patient on prednisone 30 mg daily. (11) Anemia in chronic renal disease Current Visit: Yes Status: Acute As per primary. Qualifiers: Chronic kidney disease stage: on chronic dialysis Qualified Code(s): N18.6 - End stage renal disease; D63.1 - Anemia in chronic kidney disease; D63.1 - Anemia in chronic kidney disease; Z99.2 - Dependence on renal dialysis; Z99.2 - Dependence on renal dialysis; Z99.2 - Dependence on renal dialysis; Z99.2 - Dependence on renal dialysis (12) DVT prophylaxis Current Visit: Yes Status: Acute As per primary. - Subjective Interval history: Patient is able to converse. He is following commands. He denies any complaints today. Alert and oriented 3. No acute events overnight. He denies chest pain, shortness of breath, nausea, vomiting, diarrhea. Reports secretions have decreased. Infect Dis PN-Objective Data - Labs CBC & Chem 7: 04/15/17 07:01 04/15/17 07:01 Labs: Laboratory Results - last 24 hr 04/14/17 04/14/17 04/14/17 07:15 16:33 19:49 WBC RBC Hgb Hct MCV MCH MCHC RDW Plt Count MPV Immature Gran % Seg Neutrophils % Lymphocytes % Monocytes % Eosinophils % Basophils % Neutrophils # Lymphocytes # Monocytes # Eosinophils # Basophils # Nucleated RBCs/100 WBC Platelet Estimate Immature Plt Fraction Sodium Potassium Chloride Carbon Dioxide BUN Creatinine Est GFR ( Amer) Est GFR (Non-Af Amer) BUN/Creatinine Ratio Glucose POC Glucose 126 H 150 H 138 H Calculated Osmolality Calcium 04/14/17 04/15/17 04/15/17 23:50 04:15 07:01 WBC RBC Hgb Hct MCV MCH MCHC RDW Plt Count MPV Immature Gran % Seg Neutrophils % Lymphocytes % Monocytes % Eosinophils % Basophils % Neutrophils # Lymphocytes # Monocytes # Eosinophils # Basophils # Nucleated RBCs/100 WBC Platelet Estimate Immature Plt Fraction Sodium 135 L Potassium 4.8 Chloride 99 Carbon Dioxide 23 BUN 32 H Creatinine 2.56 H Est GFR ( Amer) 33 L Est GFR (Non-Af Amer) 27 L BUN/Creatinine Ratio 13 Glucose 96 POC Glucose 108 H 98 H Calculated Osmolality 287 Calcium 8.4 L 04/15/17 07:01 WBC 7.7 RBC 2.30 L Hgb 7.1 L Hct 22.8 L MCV 99.1 MCH 30.9 MCHC 31.1 L RDW 20.7 H Plt Count 19 L* MPV 13.4 H Immature Gran % 3.9 Seg Neutrophils % 44.0 Lymphocytes % 30.8 Monocytes % 19.7 Eosinophils % 1.2 Basophils % 0.4 Neutrophils # 3.4 Lymphocytes # 2.4 Monocytes # 1.5 H Eosinophils # 0.1 Basophils # 0.0 Nucleated RBCs/100 WBC 1.6 H Platelet Estimate Decreased L Immature Plt Fraction 22.7 H Sodium Potassium Chloride Carbon Dioxide BUN Creatinine Est GFR ( Amer) Est GFR (Non-Af Amer) BUN/Creatinine Ratio Glucose POC Glucose Calculated Osmolality Calcium Cultures: Cultures 04/07/17 12:00 Blood Culture - Final Central Venous Catheter No growth. 04/07/17 12:00 Blood Culture - Final Peripheral Venipuncture No growth. 04/07/17 11:45 Urine Culture - Final Urine,[place] Port Vancomycin Resistant Enterococcus faecium 04/03/17 13:35 Blood Culture - Final Peripheral Venipuncture No growth. 04/03/17 13:35 Blood Culture - Final Peripheral Venipuncture No growth. 04/06/17 15:05 Urine Culture - Final Urine,[place] Port Enterococcus faecium 04/04/17 14:00 Sputum Culture - Final Sputum Pseudomonas aeruginosa Serratia marcescens Serology 04/07/17 04/05/17 04/04/17 Range/Units 11:45 14:20 04:02 Urine Color Yellow Yellow (Yellow) Urine Clarity Cloudy A Cloudy A (Clear) Urine pH 6.0 6.5 (5.0-8.0) pH Units Ur Specific [place] 1.018 1.012 (1.010-1.025) Urine Protein >=300 H >=300 H (Neg-Trace) mg/dL Urine Glucose (UA) 100 H 100 H (Normal) mg/dL Urine Ketones Trace H Negative (Negative) mg/dL Urine Blood Large H Moderate H (Negative) Urine Nitrite Negative Negative (Negative) Urine Bilirubin Negative Negative (Negative) Urine Urobilinogen Normal Normal (Normal) mg/dL Ur Leukocyte Esterase Moderate H Small H (Negative) Urine Microscopic RBC TNTC H 5-15 H (0-3) per hpf Urine Microscopic WBC TNTC H TNTC H (0-3) per hpf Ur Squamous Epith Cells Moderate H Moderate H (None-Few) per lpf Urine Bacteria Many H Few (None-Few) per hpf Hyaline Casts None Seen Few (None-Few) per lpf Ur Culture Indicated? YES A (NO) Chlamy pneumoniae PCR Not Detected (Not Detect) Adenovirus (PCR) Not Detected (Not Detect) B. pertussis DNA (PCR) Not Detected (Not Detect) B.parapertussis DNA PCR Not Detected (Not Detect) Coronavirus OC43 (PCR) Not Detected (Not Detect) Coronavirus HKU1 (PCR) Not Detected (Not Detect) Coronavirus 229E (PCR) Not Detected (Not Detect) Coronavirus NL63 (PCR) Not Detected (Not Detect) Hep Bs Antigen (Nonreactive) Hep Bs Antibody mIU/mL Human Metapneumovir PCR Not Detected (Not Detect) Influenza A (H1) PCR Not Detected (Not Detect) Influ A (H1N1/09) PCR Not Detected (Not Detect) Influenza A (H3) PCR Not Detected (Not Detect) Influenza A Untype (PCR) Not Detected (Not Detect) Influenza Type B (PCR) Not Detected (Not Detect) M.pneumoniae DNA (PCR) Not Detected (Not Detect) Parainfluenza 1 (PCR) Not Detected (Not Detect) Parainfluenza 2 (PCR) Not Detected (Not Detect) Parainfluenza 3 (PCR) Not Detected (Not Detect) Parainfluenza 4 (PCR) Not Detected (Not Detect) RSV (PCR) Not Detected (Not Detect) Entero/Rhino (PCR) DETECTED A (Not Detect) 04/03/17 Range/Units 13:13 Urine Color (Yellow) Urine Clarity (Clear) Urine pH (5.0-8.0) pH Units Ur Specific [place] (1.010-1.025) Urine Protein (Neg-Trace) mg/dL Urine Glucose (UA) (Normal) mg/dL Urine Ketones (Negative) mg/dL Urine Blood (Negative) Urine Nitrite (Negative) Urine Bilirubin (Negative) Urine Urobilinogen (Normal) mg/dL Ur Leukocyte Esterase (Negative) Urine Microscopic RBC (0-3) per hpf Urine Microscopic WBC (0-3) per hpf Ur Squamous Epith Cells (None-Few) per lpf Urine Bacteria (None-Few) per hpf Hyaline Casts (None-Few) per lpf Ur Culture Indicated? (NO) Chlamy pneumoniae PCR (Not Detect) Adenovirus (PCR) (Not Detect) B. pertussis DNA (PCR) (Not Detect) B.parapertussis DNA PCR (Not Detect) Coronavirus OC43 (PCR) (Not Detect) Coronavirus HKU1 (PCR) (Not Detect) Coronavirus 229E (PCR) (Not Detect) Coronavirus NL63 (PCR) (Not Detect) Hep Bs Antigen Nonreactive (Nonreactive) Hep Bs Antibody 26.47 mIU/mL Human Metapneumovir PCR (Not Detect) Influenza A (H1) PCR (Not Detect) Influ A (H1N1/09) PCR (Not Detect) Influenza A (H3) PCR (Not Detect) Influenza A Untype (PCR) (Not Detect) Influenza Type B (PCR) (Not Detect) M.pneumoniae DNA (PCR) (Not Detect) Parainfluenza 1 (PCR) (Not Detect) Parainfluenza 2 (PCR) (Not Detect) Parainfluenza 3 (PCR) (Not Detect) Parainfluenza 4 (PCR) (Not Detect) RSV (PCR) (Not Detect) Entero/Rhino (PCR) (Not Detect) Exam - Constitutional Vitals: Temp Pulse Resp BP Pulse Ox 98.5 F 90 17 108/71 94 04/15/17 07:34 04/15/17 07:34 04/15/17 07:34 04/15/17 07:34 04/15/17 07:34 - Additional findings Additional findings: General: Obese male. Heart: regular rate and rhythm Lungs: Clear to auscultation anteriorly. Abdomen: Soft nontender, positive bowel sounds Skin: Bilateral lower extremity erythema urogenital: Chronic Maza in place. No evidence of erythema. Back: Patient has two stage II pressure ulcers which are dressed. Extremities: Bilateral lower extremity pedal edema, erythema up to knee. stable Neuro: He is following commands. patient is verbal. Alert oriented 3 Vascular: Pedal and radial pulses 2 out of 4 - VTE Documentation of Mechanical Device: Venous foot pump, device Consult Discharge Plan - Plan Referrals: Eduard Chapin MD [Primary Care Provider] - (Patient is from [facility] no PCP appointment is needed) - Attending Attestation I examined this patient and my medical decision-making was reviewed with the Resident Physician. I agree with the documented findings, disposition and treatment plan as described except to the extent set forth below.
[2017-04-15] MEDS ORDERED: Darbepoetin 150 MCG/0.3 ML SYRINGE SQ SCH (09:45)
[2017-04-15] MEDS: Budesonide/Formoterol 160/4.5 MDI IH SCH ×2 (11:00→21:32)
[2017-04-15] MEDS: *HR* OxyCODONE Immed Rel 15 MG TABLET GTUBE PRN ×2 (13:49→20:04)
--- NOTE | 2017-04-15 14:01 | Internal Med Progress Note ---
Date of Encounter: 04/15/17 Time of Encounter: 13:59 - Assessment and plan (1) Sepsis Current Visit: Yes Status: Acute Assessment and plan: present on admission. plan as below Qualifiers: Sepsis type: Pseudomonas Qualified Code(s): A41.52 - Sepsis due to Pseudomonas (2) Acute and chronic respiratory failure Current Visit: Yes Status: Acute Assessment and plan: Likely secondary to the pneumonia as well as some volume overload from his kidney disease. Patient is back to baseline. He is vent dependent. Qualifiers: Respiratory failure complication: hypoxia and hypercapnia Qualified Code(s) : J96.21 - Acute and chronic respiratory failure with hypoxia; J96.22 - Acute and chronic respiratory failure with hypercapnia; J96.22 - Acute and chronic respiratory failure with hypercapnia; J96.22 - Acute and chronic respiratory failure with hypercapnia (3) Pneumonia Current Visit: Yes Status: Acute Assessment and plan: Continue cefepime. Plan to have cefepime dose until 04/17/2017. Cultures grew Pseudomonas and Serratia from sputum. Qualifiers: Pneumonia type: due to unspecified organism Laterality: left Lung location: lower lobe of lung Qualified Code(s): J18.1 - Lobar pneumonia, unspecified organism (4) Thrombocytopenia Current Visit: Yes Status: Acute Assessment and plan: Chronic. No need to transfuse platelets. He has no signs of bleeding. This is all stemming from his history of AML with stem cell transplant since 2008 according to the patient. 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 Currently on steroids prednisone 30 mg daily. Follow up with [facility]. Qualifiers: Leukemia Active/Remission status: in remission Qualified Code(s): C92.01 - Acute myeloblastic leukemia, in remission; C92.61 - Acute myeloid leukemia with [id number] in remission; C92.A1 - Acute myeloid leukemia with multilineage dysplasia, in remission (6) Acute encephalopathy Current Visit: Yes Status: Acute Assessment and plan: Result. Back to baseline. (7) Anemia in chronic renal disease Current Visit: Yes Status: Acute Assessment and plan: Transfuse 1 unit of PRBC today. Hemoglobin 7.1. If hemoglobin is stable by tomorrow he can be discharged. Qualifiers: Chronic kidney disease stage: on chronic dialysis Qualified Code(s): N18.6 - End stage renal disease; D63.1 - Anemia in chronic kidney disease; D63.1 - Anemia in chronic kidney disease; Z99.2 - Dependence on renal dialysis; Z99.2 - Dependence on renal dialysis; Z99.2 - Dependence on renal dialysis; Z99.2 - Dependence on renal dialysis (8) COPD (chronic obstructive pulmonary disease) Current Visit: Yes Status: Acute Assessment and plan: Inhaled albuterol and ipratropium. Qualifiers: COPD type: unspecified COPD Qualified Code(s): J44.9 - Chronic obstructive pulmonary disease, unspecified (9) HTN (hypertension) Current Visit: Yes Status: Acute Assessment and plan: Blood pressure stable. Continue with Coreg. Qualifiers: Hypertension type: unspecified Qualified Code(s): I10 - Essential (primary ) hypertension (10) Hypothyroidism Current Visit: Yes Status: Acute Assessment and plan: Continue levothyroxine Qualifiers: Hypothyroidism type: acquired Qualified Code(s): E03.9 - Hypothyroidism, unspecified (11) Urinary tract infection Current Visit: Yes Status: Acute Assessment and plan: Finish treatment for VRE UTI with daptomycin per ID. Qualifiers: Urinary tract infection type: acute cystitis Hematuria presence: with hematuria Qualified Code(s): N30.01 - Acute cystitis with hematuria (12) End stage renal disease on dialysis Current Visit: Yes Status: Chronic Assessment and plan: Intermittent hemodialysis per nephrology. Dialyzed yesterday. Avoid nephrotoxins due to possible recovery of kidney function per nephrology. Continue with Lasix. (13) DVT prophylaxis Current Visit: Yes Status: Acute Assessment and plan: SCDs if able to place on lower extremities. (14) Goals of care, counseling/discussion Current Visit: Yes Status: Acute Assessment and plan: Likely discharge tomorrow to previous nursing facility if remains stable. He can finish antibiotics IV for one more day there today. - Subjective Interval history: Patient was seen and examined. He has had an extended period of hospitalization here. Admitted with acute on chronic respiratory failure. He is ventilatory dependent through his trach. His being treated for healthcare associated pneumonia. Cultures have been positive for Pseudomonas and Serratia from his sputum. He is also finished treatment for VRE UTI. Hospitalization has been complicated by acute encephalopathy for which neurology was following and the patient is back to baseline currently. Hospitalization has also been complicated by low hemoglobin given his history of AML. He has required transfusions here as well. He is also being followed by nephrology and is on intermittent dialysis. He was dialyzed yesterday. Patient is afebrile. - Constitutional Vitals: Temp Pulse Resp BP Pulse Ox 98.5 F 90 14 108/71 97 04/15/17 07:45 04/15/17 07:45 04/15/17 11:03 04/15/17 10:30 04/15/17 11:03 General appearance: Present: no acute distress Exam: GEN: NAD CVS: RRR. S1, S2, No m/r/g RESP: Diminished with coarse at the bases. ABD: Soft, NT, ND, +BS. PEG tube noted. EXT: Lower extremity with erythema that is chronic. There is some areas of ulcerations that are white patches. 2+ DP. No rashes NEURO: Nonfocal Internal Medicine: Result - Labs CBC & Chem 7: 04/15/17 07:01 04/15/17 07:01 Labs: Short CBC 04/15/17 Range/Units 07:01 WBC 7.7 (4.3-11.1) K/mcL Hgb 7.1 L (12.9-16.9) g/dL Hct 22.8 L (37.5-50.1) % Plt Count 19 L* (140-400) K/mcL Neutrophils # 3.4 (1.6-8.9) K/mcL BMP 04/15/17 07:01 Sodium 135 L Potassium 4.8 Chloride 99 Carbon Dioxide 23 BUN 32 H Creatinine 2.56 H Glucose 96 Calcium 8.4 L - ABG Interpretation ABG results: ABG ABG pH 7.40 pH Units (7.32-7.45) 04/04/17 10:40 ABG pCO2 52 mmHg (35-45) H 04/04/17 10:40 ABG pO2 87 mmHg (85-104) 04/04/17 10:40 ABG O2 Saturation 96 % (95-98) 04/04/17 10:40 PT/INR, D-dimer PT 12.7 Seconds (9.4-12.1) H 04/10/17 12:25 - VTE Documentation of Mechanical Device: Venous foot pump, device Consult Discharge Plan - Plan Referrals: Eduard Chapin MD [Primary Care Provider] - (Patient is from [facility] no PCP appointment is needed)
[2017-04-15] MEDS ORDERED: 0.9 % Sodium Chloride 250 ML ONE (14:40)
[2017-04-15] MEDS: Cefepime HCl 1,000 MG in Water for inj. (sterile) 10 ML IVP SCH (16:59)
[2017-04-16] MEDS: Insulin LISPRO 300 UNITS/3 ML VIAL SQ SCH ×4 (00:54→12:00)
[2017-04-16] MEDS: *HR* OxyCODONE Immed Rel 15 MG TABLET GTUBE PRN ×3 (02:27→19:30)
[2017-04-16] MEDS: Ipratropium/Albuterol Neb 3 ML IH SCH ×3 (03:43→16:22)
[2017-04-16 07:14] LABS: Eosinophils % 0.3 %
[2017-04-16 07:16] LABS: Basophils % 0.6 %; Hematocrit 27.1 % (37.5-50.1); Hemoglobin 8.5 g/dL (12.9-16.9); Immature Granulocytes % 4.4 % (0-4); Immature Platelets 23.6 % (1.1-6.1); Lymphocytes # 1.5 K/mcL (0.6-4.6); Lymphocytes % 21.2 %; Mean Corpuscular HGB Conc 31.4 g/dL (31.6-35.5); Mean Corpuscular Hemoglobin 30.5 pg (28.0-33.3); Mean Corpuscular Volume 97.1 fL (83.0-100.0); Monocytes # 1.3 K/mcL (0.0-1.3); Monocytes % 18.7 %; Neutrophils # 3.8 K/mcL (1.6-8.9); Nucleated Red Blood Cells 2.7 /100 WBC (0); Red Blood Count 2.79 M/mcL (4.19-5.50); Segmented Neutrophils % 54.8 %
[2017-04-16] MEDS: Chlorhexidine Rinse 15 ML MOUTHWASH MM SCH (07:50)
[2017-04-16] MEDS: Renal Vitamin 1 MG CAPSULE PO SCH (07:50)
[2017-04-16] MEDS: *HR* LORazepam 0.5 MG TABLET GTUBE PRN ×2 (07:50→17:27)
[2017-04-16] MEDS: Furosemide 40 MG TABLET PO SCH (07:50)
[2017-04-16] MEDS: predniSONE 10 MG TABLET PO SCH (07:50)
[2017-04-16] MEDS: Miconazole 2% ointment 114 GM TUBE TP SCH (07:51)
[2017-04-16 08:10] LABS: Platelet Count 19 K/mcL (140-400)
[2017-04-16 08:11] LABS: Platelet Estimate Marked Decrease (Normal)
[2017-04-16 08:15] LABS: Calcium 8.1 mg/dL (8.6-10.3)
[2017-04-16] MEDS ORDERED: 0.9 % Sodium Chloride 250 ML IVC PRN (08:53)
[2017-04-16] MEDS ORDERED: *HR* Heparin 10,000 UNIT/10 ML VIAL IV PRN (08:53)
--- NOTE | 2017-04-16 09:18 | Infectious Disease Progress No ---
Date of Encounter: 04/16/17 Time of Encounter: 09:16 - Assessment and Plan (1) Sepsis Current Visit: Yes Status: Acute three sirs cirteria of tachycardia, leukocytosis, tachypnea. All have resolved Secondary to pneumonia and VRE UTI. Qualifiers: Sepsis type: Pseudomonas Qualified Code(s): A41.52 - Sepsis due to Pseudomonas (2) Pneumonia Current Visit: Yes Status: Acute CXr shows cardiomegaly, pulmonary congestion, bilateral infiltrates. tracheostomy, ventilator depenedent (placed jan 2017 at [facility] after acute respiratory failure 2nd to influenza) patient presented with increasing O2 requirements, increasing secretions, and hypoxia In February patient was hospitalized at [facility]. CT chest 03/09 showed left lung total atelectasis and loculated effusions. At that time he was diagnosed with multifocal pneumonia. CXR 04/03/17 shows interval improvement from 03/09/17 ( complete opacification of left hemithorax, pulmonary vascular congestion). Initially patient was started on vancomycin and cefepime Vancomycin was discontinued due to Patient history of end-stage renal disease, dialysis dependent. Sputum culture grew Serratia marcescens and Pseudomonas aeruginosa (resistant to levaquin). both sensitive to cefepime all blood cultres negative x6 respiratory status continues to be stabl decreased secretions and secretions more watery plan: continue cefepime 1000mg daily for total 14 days (last day 04/17/17) renally dosed as per pharmacy. Qualifiers: Pneumonia type: due to unspecified organism Laterality: left Lung location: lower lobe of lung Qualified Code(s): J18.1 - Lobar pneumonia, unspecified organism (3) VRE (vancomycin-resistant Enterococci) infection Current Visit: Yes Status: Resolved urine culture 03/09 grew VRE: unclear what he was treated with at that time ( reviewed records from [facility]) urine culture 04/07 and 04/06 grew VRE UTI versus colonization. patient has received 1 dose of vancomycin versus discontinued due to being end- stage renal disease dialysis dependent. Also received 1 dose of Zyvox which is discontinued due to suspected interaction with Cymbalta resulting in myoclonic jerks, tremors, altered mental status. urine yellow clear increased urine output Plan: finished 7 days of daptomycin on 04/14/2017 (4) Acute respiratory failure Current Visit: Yes Status: Resolved 2nd to PNA, systolic chf exacerbation Resolved management of chf as per primary plan as above. tracheotomy palced in jan 2017 at [facility] 2nd to influenza. continue duonebs, symbicort. Qualifiers: Respiratory failure complication: hypoxia and hypercapnia Qualified Code(s) : J96.01 - Acute respiratory failure with hypoxia; J96.02 - Acute respiratory failure with hypercapnia; J96.02 - Acute respiratory failure with hypercapnia; J96.02 - Acute respiratory failure with hypercapnia (5) End stage renal disease on dialysis Current Visit: Yes Status: Chronic dialysis dependent ESRD starting jan 2017. unclear if he had CKD before hand. on dialysis nehrology following (6) Acute bronchitis due to Rhinovirus Current Visit: Yes Status: Resolved RIP + for rhinovirus continue supportive measures including duonebs, symbicort. (7) Pressure ulcer of back Current Visit: Yes Status: Acute dressed no discharge change bed position Q2h as per primary Qualifiers: Pressure ulcer stage: stage 2 Qualified Code(s): L89.102 - Pressure ulcer of unspecified part of back, stage 2 (8) Acute on chronic systolic (congestive) heart failure Current Visit: Yes Status: Acute (9) AML (acute myeloid leukemia) Current Visit: Yes Status: Acute History of AML status post bone marrow transplant. Qualifiers: Leukemia Active/Remission status: in remission Qualified Code(s): C92.01 - Acute myeloblastic leukemia, in remission; C92.61 - Acute myeloid leukemia with [id number] in remission; C92.A1 - Acute myeloid leukemia with multilineage dysplasia, in remission (10) Erythema of lower extremity Current Visit: Yes Status: Acute b/l symmetric erythema of LE. no pus like discharge Lower extremity erythema, skin changes secondary to [id number] disease after bone marrow transplant. Patient on prednisone 30 mg daily. (11) Anemia in chronic renal disease Current Visit: Yes Status: Acute As per primary. Qualifiers: Chronic kidney disease stage: on chronic dialysis Qualified Code(s): N18.6 - End stage renal disease; D63.1 - Anemia in chronic kidney disease; D63.1 - Anemia in chronic kidney disease; Z99.2 - Dependence on renal dialysis; Z99.2 - Dependence on renal dialysis; Z99.2 - Dependence on renal dialysis; Z99.2 - Dependence on renal dialysis (12) DVT prophylaxis Current Visit: Yes Status: Acute As per primary. - Subjective Interval history: Patient is pleasant, eating breakfast. Reports secretions are watery, less frequent. bush shows clear urine with increased urine output. He denies fever, chills, chest pain, sob, N/V/D. Infect Dis PN-Objective Data - Labs CBC & Chem 7: 04/16/17 06:02 04/16/17 06:02 Labs: Laboratory Results - last 24 hr 04/15/17 04/15/17 04/15/17 07:28 14:30 20:03 WBC RBC Hgb Hct MCV MCH MCHC RDW Plt Count MPV Immature Gran % Seg Neutrophils % Lymphocytes % Monocytes % Eosinophils % Basophils % Neutrophils # Lymphocytes # Monocytes # Eosinophils # Basophils # Nucleated RBCs/100 WBC Platelet Estimate Immature Plt Fraction Sodium Potassium Chloride Carbon Dioxide BUN Creatinine Est GFR ( Amer) Est GFR (Non-Af Amer) BUN/Creatinine Ratio Glucose POC Glucose 95 H 246 H Calculated Osmolality Calcium Blood Type O NEGATIVE Antibody Screen NEGATIVE Crossmatch See Detail 04/15/17 04/16/17 04/16/17 23:32 03:16 06:02 WBC RBC Hgb Hct MCV MCH MCHC RDW Plt Count MPV Immature Gran % Seg Neutrophils % Lymphocytes % Monocytes % Eosinophils % Basophils % Neutrophils # Lymphocytes # Monocytes # Eosinophils # Basophils # Nucleated RBCs/100 WBC Platelet Estimate Immature Plt Fraction Sodium 132 L Potassium 5.0 Chloride 97 L Carbon Dioxide 23 BUN 43 H Creatinine 3.34 H Est GFR ( Amer) 24 L Est GFR (Non-Af Amer) 20 L BUN/Creatinine Ratio 13 Glucose 111 H POC Glucose 239 H 130 H Calculated Osmolality 286 Calcium 8.1 L Blood Type Antibody Screen Crossmatch 04/16/17 06:02 WBC 7.0 RBC 2.79 L Hgb 8.5 L Hct 27.1 L MCV 97.1 MCH 30.5 MCHC 31.4 L RDW 20.0 H Plt Count 19 L* MPV TNP Immature Gran % 4.4 H Seg Neutrophils % 54.8 Lymphocytes % 21.2 Monocytes % 18.7 Eosinophils % 0.3 Basophils % 0.6 Neutrophils # 3.8 Lymphocytes # 1.5 Monocytes # 1.3 Eosinophils # 0.0 Basophils # 0.0 Nucleated RBCs/100 WBC 2.7 H Platelet Estimate Marked Decrease L Immature Plt Fraction 23.6 H Sodium Potassium Chloride Carbon Dioxide BUN Creatinine Est GFR ( Amer) Est GFR (Non-Af Amer) BUN/Creatinine Ratio Glucose POC Glucose Calculated Osmolality Calcium Blood Type Antibody Screen Crossmatch Cultures: Cultures 04/07/17 12:00 Blood Culture - Final Central Venous Catheter No growth. 04/07/17 12:00 Blood Culture - Final Peripheral Venipuncture No growth. 04/07/17 11:45 Urine Culture - Final Urine,Bush Port Vancomycin Resistant Enterococcus faecium 04/03/17 13:35 Blood Culture - Final Peripheral Venipuncture No growth. 04/03/17 13:35 Blood Culture - Final Peripheral Venipuncture No growth. 04/06/17 15:05 Urine Culture - Final Urine,Bush Port Enterococcus faecium 04/04/17 14:00 Sputum Culture - Final Sputum Pseudomonas aeruginosa Serratia marcescens Serology 04/07/17 04/05/17 04/04/17 Range/Units 11:45 14:20 04:02 Urine Color Yellow Yellow (Yellow) Urine Clarity Cloudy A Cloudy A (Clear) Urine pH 6.0 6.5 (5.0-8.0) pH Units Ur Specific Kamas 1.018 1.012 (1.010-1.025) Urine Protein >=300 H >=300 H (Neg-Trace) mg/dL Urine Glucose (UA) 100 H 100 H (Normal) mg/dL Urine Ketones Trace H Negative (Negative) mg/dL Urine Blood Large H Moderate H (Negative) Urine Nitrite Negative Negative (Negative) Urine Bilirubin Negative Negative (Negative) Urine Urobilinogen Normal Normal (Normal) mg/dL Ur Leukocyte Esterase Moderate H Small H (Negative) Urine Microscopic RBC TNTC H 5-15 H (0-3) per hpf Urine Microscopic WBC TNTC H TNTC H (0-3) per hpf Ur Squamous Epith Cells Moderate H Moderate H (None-Few) per lpf Urine Bacteria Many H Few (None-Few) per hpf Hyaline Casts None Seen Few (None-Few) per lpf Ur Culture Indicated? YES A (NO) Chlamy pneumoniae PCR Not Detected (Not Detect) Adenovirus (PCR) Not Detected (Not Detect) B. pertussis DNA (PCR) Not Detected (Not Detect) B.parapertussis DNA PCR Not Detected (Not Detect) Coronavirus OC43 (PCR) Not Detected (Not Detect) Coronavirus HKU1 (PCR) Not Detected (Not Detect) Coronavirus 229E (PCR) Not Detected (Not Detect) Coronavirus NL63 (PCR) Not Detected (Not Detect) Hep Bs Antigen (Nonreactive) Hep Bs Antibody mIU/mL Human Metapneumovir PCR Not Detected (Not Detect) Influenza A (H1) PCR Not Detected (Not Detect) Influ A (H1N1/09) PCR Not Detected (Not Detect) Influenza A (H3) PCR Not Detected (Not Detect) Influenza A Untype (PCR) Not Detected (Not Detect) Influenza Type B (PCR) Not Detected (Not Detect) M.pneumoniae DNA (PCR) Not Detected (Not Detect) Parainfluenza 1 (PCR) Not Detected (Not Detect) Parainfluenza 2 (PCR) Not Detected (Not Detect) Parainfluenza 3 (PCR) Not Detected (Not Detect) Parainfluenza 4 (PCR) Not Detected (Not Detect) RSV (PCR) Not Detected (Not Detect) Entero/Rhino (PCR) DETECTED A (Not Detect) 04/03/17 Range/Units 13:13 Urine Color (Yellow) Urine Clarity (Clear) Urine pH (5.0-8.0) pH Units Ur Specific Kamas (1.010-1.025) Urine Protein (Neg-Trace) mg/dL Urine Glucose (UA) (Normal) mg/dL Urine Ketones (Negative) mg/dL Urine Blood (Negative) Urine Nitrite (Negative) Urine Bilirubin (Negative) Urine Urobilinogen (Normal) mg/dL Ur Leukocyte Esterase (Negative) Urine Microscopic RBC (0-3) per hpf Urine Microscopic WBC (0-3) per hpf Ur Squamous Epith Cells (None-Few) per lpf Urine Bacteria (None-Few) per hpf Hyaline Casts (None-Few) per lpf Ur Culture Indicated? (NO) Chlamy pneumoniae PCR (Not Detect) Adenovirus (PCR) (Not Detect) B. pertussis DNA (PCR) (Not Detect) B.parapertussis DNA PCR (Not Detect) Coronavirus OC43 (PCR) (Not Detect) Coronavirus HKU1 (PCR) (Not Detect) Coronavirus 229E (PCR) (Not Detect) Coronavirus NL63 (PCR) (Not Detect) Hep Bs Antigen Nonreactive (Nonreactive) Hep Bs Antibody 26.47 mIU/mL Human Metapneumovir PCR (Not Detect) Influenza A (H1) PCR (Not Detect) Influ A (H1N1/09) PCR (Not Detect) Influenza A (H3) PCR (Not Detect) Influenza A Untype (PCR) (Not Detect) Influenza Type B (PCR) (Not Detect) M.pneumoniae DNA (PCR) (Not Detect) Parainfluenza 1 (PCR) (Not Detect) Parainfluenza 2 (PCR) (Not Detect) Parainfluenza 3 (PCR) (Not Detect) Parainfluenza 4 (PCR) (Not Detect) RSV (PCR) (Not Detect) Entero/Rhino (PCR) (Not Detect) Exam - Constitutional Vitals: Temp Pulse Resp BP Pulse Ox 98.6 F 93 15 109/81 97 04/16/17 07:39 04/16/17 07:39 04/16/17 07:39 04/16/17 07:39 04/16/17 07:39 - Additional findings Additional findings: General: Obese male. pleasant Heart: regular rate and rhythm Lungs: Clear to auscultation anteriorly. Abdomen: Soft nontender, positive bowel sounds Skin: Bilateral lower extremity erythema urogenital: Chronic Bush in place. No evidence of erythema. Back: Patient has two stage II pressure ulcers which are dressed. Extremities: Bilateral lower extremity pedal edema, erythema up to knee. stable Neuro: He is following commands. patient is verbal. Alert oriented 3 Vascular: Pedal and radial pulses 2 out of 4 - VTE Documentation of Mechanical Device: Venous foot pump, device Consult Discharge Plan - Plan Instructions: Urinary Tract Infection in Men (DC), Diabetes Mellitus Type 2 in Adults (DC), Chronic Obstructive Pulmonary Disease (DC), Chronic Hypertension ( DC), Anxiety (DC), Pneumonia (DC) Referrals: Eduard Chapin MD [Primary Care Provider] - (Patient is from [facility] no PCP appointment is needed) Himanshu Geiger DO [Non-Partnered Physician] - (2 weeks The physician will follow the patient at dialysis) Prescriptions: Cefepime HCl/Dextrose, Iso-Osm [Cefepime 1 gm Injection] 1 gm IV DAILY #1 mls LORazepam [Ativan] 0.5 mg PO Q6H PRN 3 Days #12 tablet PRN Reason: Anxiety Oxycodone HCl 15 mg GTUBE Q4H PRN 3 Days #18 tablet PRN Reason: Pain Renal Vitamin [Renal Caps Softgel] 1 mg PO DAILY #30 capsule Sulfamethoxazole/Trimeth DS [Bactrim DS] 1 each PO 3XW #30 tablet - Attending Attestation I examined this patient and my medical decision-making was reviewed with the Resident Physician. I agree with the documented findings, disposition and treatment plan as described except to the extent set forth below.
--- NOTE | 2017-04-16 09:33 | Nephrology Progress Note ---
Date of Encounter: 04/16/17 Time of Encounter: 09:00 - Assessment and Plan (1) End stage renal disease on dialysis Current Visit: Yes Status: Chronic TOVA in setting chronic resp failure and CHF. Does not seem to recovering renal fct. Will chronic HD, three times weekly. HD today, orders given. Continue to monitor. Subjective Principal diagnosis: Sepsis Interval history: Sitting up in bed, feeding self brakfast. Trach>vent. Objective - Vital Signs Vital signs: Vital Signs Temp Pulse Resp BP Pulse Ox 04/16/17 07:39 98.6 F 93 15 109/81 97 04/16/17 03:43 19 132/73 95 04/16/17 03:09 98.6 F 87 15 132/73 96 04/16/17 00:45 27 129/82 96 04/15/17 23:11 98.8 F 95 16 129/82 96 04/15/17 21:36 28 97 04/15/17 19:32 98.3 F 95 18 124/80 97 04/15/17 16:55 98.9 F 87 18 131/83 99 04/15/17 16:18 22 98 04/15/17 16:07 98.9 F 91 16 104/58 99 04/15/17 15:52 98.9 F 96 16 111/69 98 04/15/17 15:45 98.9 F 96 16 111/69 98 04/15/17 11:03 14 97 04/15/17 10:30 108/71 Intake and Output 04/15/17 04/16/17 04/16/17 23:59 07:59 15:59 Intake Total 315 / 315 640 / 640 120 / 120 Output Total 100 / 100 420 / 420 Balance 215 / 215 220 / 220 120 / 120 Intake: Oral 0 / 0 640 / 640 120 / 120 Blood Product 315 / 315 Rbcs Leuko Poor As-1 Unit 315 / 315 [id number] Output: Urine 50 / 50 300 / 300 Catheter 50 / 50 120 / 120 Other: Meal Breakfast Percent of Meal Consumed 100% Stool Size Large Stool Consistency formed Stool Color Brown # Bowel Movements 1 Weight 112.6 kg Blood Glucose* 239 170 Patient Weight 04/16/17 23:59 Weight 112.6 kg - General Appearance General appearance: Present: well-developed, well-nourished, appears started age EENT: Present: mucous membranes moist Neck: Present: no JVD Respiratory: Present: clear Cardiology: Present: edema, regular rate, regular rhythm Additional Comments: mild Gastrointestinal: Present: normoactive bowel sounds, no tenderness Integumentary: Present: warm and dry Psychiatric: Present: mood/affect appropriate, cooperative - Lab 04/16/17 06:02 04/16/17 06:02 Most recent lab results ABG pH 7.40 pH Units (7.32-7.45) 04/04/17 10:40 ABG pCO2 52 mmHg (35-45) H 04/04/17 10:40 ABG pO2 87 mmHg (85-104) 04/04/17 10:40 ABG HCO3 32 mEq/L (21-27) H 04/04/17 10:40 ABG O2 Saturation 96 % (95-98) 04/04/17 10:40 Calcium 8.1 mg/dL (8.6-10.3) L 04/16/17 06:02 Phosphorus 5.1 mg/dL (2.7-4.5) H 04/07/17 04:46 Magnesium 1.7 mg/dL (1.6-2.6) 04/03/17 13:13 - VTE Documentation of Mechanical Device: Venous foot pump, device Consult Discharge Plan - Plan Referrals: Eduard Chapin MD [Primary Care Provider] - (Patient is from [facility] no PCP appointment is needed)
--- NOTE | 2017-04-16 10:03 | Discharge Summary ---
Date of Encounter: 04/16/17 Time of Encounter: 09:56 - Discharge Diagnosis (1) Sepsis Priority: Primary Status: Acute Qualifiers: Sepsis type: Pseudomonas Qualified Code(s): A41.52 - Sepsis due to Pseudomonas (2) Acute and chronic respiratory failure Priority: Primary Status: Acute Qualifiers: Respiratory failure complication: hypoxia and hypercapnia Qualified Code(s) : J96.21 - Acute and chronic respiratory failure with hypoxia; J96.22 - Acute and chronic respiratory failure with hypercapnia; J96.22 - Acute and chronic respiratory failure with hypercapnia; J96.22 - Acute and chronic respiratory failure with hypercapnia (3) Pneumonia Priority: Primary Status: Acute Qualifiers: Pneumonia type: due to unspecified organism Laterality: left Lung location: lower lobe of lung Qualified Code(s): J18.1 - Lobar pneumonia, unspecified organism (4) Thrombocytopenia Priority: Secondary Status: Acute (5) AML (acute myeloid leukemia) Priority: Secondary Status: Acute Qualifiers: Leukemia Active/Remission status: in remission Qualified Code(s): C92.01 - Acute myeloblastic leukemia, in remission; C92.61 - Acute myeloid leukemia with [id number] in remission; C92.A1 - Acute myeloid leukemia with multilineage dysplasia, in remission (6) Acute encephalopathy Priority: Primary Status: Acute (7) Anemia in chronic renal disease Priority: Secondary Status: Acute Qualifiers: Chronic kidney disease stage: on chronic dialysis Qualified Code(s): N18.6 - End stage renal disease; D63.1 - Anemia in chronic kidney disease; D63.1 - Anemia in chronic kidney disease; Z99.2 - Dependence on renal dialysis; Z99.2 - Dependence on renal dialysis; Z99.2 - Dependence on renal dialysis; Z99.2 - Dependence on renal dialysis (8) COPD (chronic obstructive pulmonary disease) Priority: Secondary Status: Acute Qualifiers: COPD type: unspecified COPD Qualified Code(s): J44.9 - Chronic obstructive pulmonary disease, unspecified (9) HTN (hypertension) Priority: Secondary Status: Acute Qualifiers: Hypertension type: unspecified Qualified Code(s): I10 - Essential (primary ) hypertension (10) Hypothyroidism Priority: Secondary Status: Acute Qualifiers: Hypothyroidism type: acquired Qualified Code(s): E03.9 - Hypothyroidism, unspecified (11) Urinary tract infection Priority: Primary Status: Acute Qualifiers: Urinary tract infection type: acute cystitis Hematuria presence: with hematuria Qualified Code(s): N30.01 - Acute cystitis with hematuria (12) End stage renal disease on dialysis Priority: Primary Status: Chronic - Discharge Medications Prescriptions: Cefepime HCl/Dextrose, Iso-Osm [Cefepime 1 gm Injection] 1 gm IV DAILY #1 mls LORazepam [Ativan] 0.5 mg PO Q6H PRN 3 Days #12 tablet PRN Reason: Anxiety Oxycodone HCl 15 mg GTUBE Q4H PRN 3 Days #18 tablet PRN Reason: Pain Renal Vitamin [Renal Caps Softgel] 1 mg PO DAILY #30 capsule Sulfamethoxazole/Trimeth DS [Bactrim DS] 1 each PO 3XW #30 tablet Home Medications: Acetaminophen [Tylenol 325mg SUPP] 325 mg RC Q6H PRN 04/03/17 [History] Albuterol Neb [Proventil Neb] 2.5 mg IH Q4H PRN 04/03/17 [History] Bisacodyl [Dulcolax] 10 mg RC HS PRN 04/03/17 [History] Calcitriol 0.5 mcg GTUBE FR 04/03/17 [History] Carvedilol [Coreg] 6.25 mg GTUBE BIDWM 04/03/17 [History] DULoxetine [Cymbalta] 20 mg GTUBE DAILY 04/03/17 [History] Dapsone 100 mg GTUBE DAILY 04/03/17 [History] Diphenhydramine HCl [Restfully Sleep] 12.5 mg GTUBE Q6H PRN 04/03/17 [History] Docusate [Colace] 100 mg GTUBE DAILY PRN 04/03/17 [History] Esomeprazole Magnesium [Nexium] 40 mg GTUBE DAILY 04/03/17 [History] Folic Acid/Vit Bcomp,C [Renal-Kenyon Tablet] 0.8 mg GTUBE DAILY 04/03/17 [History] Furosemide [Lasix] 80 mg GTUBE BID 04/03/17 [History] Hydrophilic Wound Dress Paste 1 appl TP BID 04/03/17 [History] Insulin Regular Human [HumuLIN R] 1 - 5 unit SQ TIDAC 04/03/17 [History] Levothyroxine [Synthroid] 88 mcg GTUBE 0630 04/03/17 [History] Midodrine HCl 10 mg GTUBE TID 04/03/17 [History] Mirtazapine [Remeron] 30 mg GTUBE HS 04/03/17 [History] Ondansetron HCl [Zofran] 4 mg GTUBE Q4H PRN 04/03/17 [History] Polyethylene Glycol [Polyox Wsr-301] 17 gm GTUBE DAILY PRN 04/03/17 [History] Polyvinyl Alcohol [Artificial Tears] 1 drop BOTH EYES Q4H PRN 04/03/17 [History] PredniSONE [Deltasone] 30 mg GTUBE DAILY 04/03/17 [History] Sennosides [Senna] 17.2 mg GTUBE BID 04/03/17 [History] Sodium Chloride for inhalation [Hyper-Jorge] 4 ml IH Q4H PRN 04/03/17 [History] Zinc Oxide/Petrolatum, Yellow [Critic-Aid Skin Paste] 1 appl TP BID 04/03/17 [ History] valACYclovir [Valtrex] 500 mg GTUBE DAILY 04/03/17 [History] Cefepime HCl/Dextrose, Iso-Osm [Cefepime 1 gm Injection] 1 gm IV DAILY #1 mls [Rx] LORazepam [Ativan] 0.5 mg PO Q6H PRN 3 Days #12 tablet 04/16/17 [Rx] Oxycodone HCl 15 mg GTUBE Q4H PRN 3 Days #18 tablet 04/16/17 [Rx] Renal Vitamin [Renal Caps Softgel] 1 mg PO DAILY #30 capsule 04/16/17 [Rx] Sulfamethoxazole/Trimeth DS [Bactrim DS] 1 each PO 3XW #30 tablet 04/16/17 [Rx] Allergies/Adverse Reactions: 3 Allergy/AdvReac Type Severity Reaction Status Date / Time Amoxicillin Allergy Hives Verified 03/09/17 14:44 aspirin Allergy Hives Verified 03/09/17 14:44 Date of admission: 04/03/17 17:53 Primary care physician: Eduard Chapin MD Consults: 04/03/17 12:01 Consult to Nutrition [CONS] Routine Comment: Consulting Provider: NUTRITION Reason for Dietary Consult: Tube Feed Start & Manage Consult to Pastoral Services [CONS] Routine Comment: Consult to Peer Counselor [CONS] Routine Reason for SW Consult: From [facility] for 1 day, was at [facility] yesterday. 04/03/17 13:17 Consult to Nephrology [CONS] Routine Consulting Provider: Kidney Yudy/APRYL/HUSSEIN/KISHA Reason for Consult: ESRD on HD Call Completed: Yes 04/03/17 14:30 Consult to Dialysis [CONS] ONCE 04/03/17 15:00 Consult to Dialysis [CONS] ONCE 04/03/17 15:15 Consult to Speech Therapy [CONS] Routine Comment: Evaluate, develop and implement POC Reason for Consult: gtube present but apparently was eating PO at the , requesting evaluation. thanks Call Completed: Yes 04/07/17 11:30 Consult to Dialysis [CONS] ONCE 04/08/17 15:29 Consult to Infectious Diseases [CONS] Routine Consulting Provider: Infectious Disease Yudy Reason for Consult: Antibiotic guidance Time Notified: 15:29 Call Completed: Yes 04/09/17 08:30 Consult to Dialysis [CONS] ONCE 04/09/17 10:20 Consult to Neurology [CONS] Routine Consulting Provider: Neurology [facility] Reason for Consult: change in mentals status and myoclonic jerks two nights ago Time Notified: 10:24 Call Completed: Yes 04/09/17 13:08 Consult to Interpret Exam [CONS] Routine Consulting Provider: James Perdomo I Consult to Interpret Exam: Interpret EEG 04/11/17 05:58 Consult to Wound Care [CONS] Routine Reason for Consult: Pt has lower ext sloughing red blistered like Call Completed: No 04/11/17 09:45 Consult to Dialysis [CONS] ONCE 04/12/17 09:45 Consult to Dialysis [CONS] ONCE 04/14/17 09:30 Consult to Dialysis [CONS] ONCE 04/16/17 09:00 Consult to Dialysis [CONS] ONCE - Patient Status Disposition: Transfer SNF Condition: Fair Overall status at discharge: patient is progressing back to baseline - Discharge Instructions Instructions: Urinary Tract Infection in Men (DC), Diabetes Mellitus Type 2 in Adults (DC), Chronic Obstructive Pulmonary Disease (DC), Chronic Hypertension ( DC), Anxiety (DC), Pneumonia (DC) Follow Up With: Eduard Chapin MD [Primary Care Provider] - ([facility] appointment is needed) Fely,Himanshu A, DO [Non-Partnered Physician] - (2 weeks The physician will follow the patient at dialysis) - Diet and Activity Activity: as per physical therapy, increase activity as tolerated Diet: diabetic diet, low salt diet (renal diet) Hospital course: Mr. Brian is a 46 year old male with past medical history of tracheostomy with ventilator dependence, systolic congestive heart failure, hypertension, hyperlipidemia, COPD, ESRD on hemodialysis, insulin-dependent type 2 diabetes mellitus, AML, anxiety and hypothyroidism who presented to the [facility] care unit as a direct admission from [facility] emergency department. Patient is a care home resident at [facility] and has been bedbound for roughly 3 years. Unclear etiology of his tracheostomy placement roughly 3 months ago and has been ventilator dependent since then. Emergency department at [place] reports that he was recently discharged from [facility] and was found to be hypoxic at the care home and was brought in for further evaluation. On arrival, vital signs are stable and oxygen on pulse oximetry was 97%. Initial workup demonstrates leukocytosis of 19.1, hemoglobin 8.4, potassium 6.3, creatinine 2.51 and BNP 3494. Troponin 0.06. Initial ABG demonstrates pH 7.28, pCO2 55, pO2 390, HCO3 26. Chest x-ray demonstrates diffuse pulmonary edema with small left pleural effusion versus infiltrative process. This case was discussed with the emergency room physician and the patient received D50, insulin, sodium bicarbonate, calcium chloride and Kayexalate and was subsequently transferred to the [facility] intensive care unit for further evaluation and treatment. Patient was admitted via the pulmonary/critical care team for acute respiratory failure secondary to pneumoania and volume overload likely stemming from kidney failure. He was seen by nephrology and initiated on HD scheduled. He continued to diurese as he was still able to urinate. He was treated with multiple agents antibiotics vega and eventually was seen by ID to help out. He grew Pseudomonas and Serratia from sputum and had 13 days of abx and was on cefepime per ID till day of discharge on 04/16 and is recommended one more day at SNF to finish a 14 day course. He was also treated with Daptomycin for 7 days for VRE UTI. 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 He follows up with [facility] for that. While hospitalized patient showed signs of encephalopathy and was suspected that it was all likely infectious. His workup Loading a CT head and an MRI brain came back with no acute findings. He had an EEG which came back consistent with diffuse cerebral dysfunction that can be seen in patients with encephalopathy, toxic/metabolic/infectious etiologies. Neurology was seeing the patient with us and thought that the patient's underlying infectious cause needs to be treated. He was back at baseline before discharge. Please note that I started seeing the patient only on his last 2 days of hospitalization. The patient was hospitalized for about 12 days prior to that. The patient will need follow-up regularly with nephrology now for dialysis. He is being discharged on 04/16/2017. - Time Spent with Patient Total time spent providing and/or coordinating discharge services: Greater than 30 minutes - Constitutional Vitals: Temp Pulse Resp BP Pulse Ox 98.6 F 93 15 109/81 97 04/16/17 07:39 04/16/17 07:39 04/16/17 07:39 04/16/17 07:39 04/16/17 07:39 General appearance: Present: no acute distress Exam: GEN: NAD CVS: RRR. S1, S2, No m/r/g RESP: Diminished with coarse at the bases. ABD: Soft, NT, ND, +BS. PEG tube noted. EXT: Lower extremity with erythema that is chronic. There is some areas of ulcerations that are white patches. 2+ DP. No rashes NEURO: Nonfocal - VTE Documentation of Mechanical Device: Venous foot pump, device
--- NOTE | 2017-04-16 10:05 | Physician Discharge Referral ---
ExtendedCare Referral Info Institutional Level of Care: Skilled - Diagnosis (1) Sepsis Priority: Primary Status: Acute (2) Acute and chronic respiratory failure Priority: Primary Status: Acute (3) Pneumonia Priority: Primary Status: Acute (4) Thrombocytopenia Priority: Secondary Status: Acute (5) AML (acute myeloid leukemia) Priority: Secondary Status: Acute (6) Acute encephalopathy Priority: Primary Status: Acute (7) Anemia in chronic renal disease Priority: Secondary Status: Acute (8) COPD (chronic obstructive pulmonary disease) Priority: Secondary Status: Acute (9) HTN (hypertension) Priority: Secondary Status: Acute (10) Hypothyroidism Priority: Secondary Status: Acute (11) Urinary tract infection Priority: Primary Status: Acute (12) End stage renal disease on dialysis Priority: Primary Status: Chronic Prognosis: Fair - Transfer Medications Prescriptions: Cefepime HCl/Dextrose, Iso-Osm [Cefepime 1 gm Injection] 1 gm IV DAILY #1 mls LORazepam [Ativan] 0.5 mg PO Q6H PRN 3 Days #12 tablet PRN Reason: Anxiety Oxycodone HCl 15 mg GTUBE Q4H PRN 3 Days #18 tablet PRN Reason: Pain Renal Vitamin [Renal Caps Softgel] 1 mg PO DAILY #30 capsule Home Medications: Acetaminophen [Tylenol 325mg SUPP] 325 mg RC Q6H PRN 04/03/17 [History] Albuterol Neb [Proventil Neb] 2.5 mg IH Q4H PRN 04/03/17 [History] Bisacodyl [Dulcolax] 10 mg RC HS PRN 04/03/17 [History] Calcitriol 0.5 mcg GTUBE FR 04/03/17 [History] Carvedilol [Coreg] 6.25 mg GTUBE BIDWM 04/03/17 [History] DULoxetine [Cymbalta] 20 mg GTUBE DAILY 04/03/17 [History] Dapsone 100 mg GTUBE DAILY 04/03/17 [History] Diphenhydramine HCl [Restfully Sleep] 12.5 mg GTUBE Q6H PRN 04/03/17 [History] Docusate [Colace] 100 mg GTUBE DAILY PRN 04/03/17 [History] Esomeprazole Magnesium [Nexium] 40 mg GTUBE DAILY 04/03/17 [History] Folic Acid/Vit Bcomp,C [Renal-Ken[place] Tablet] 0.8 mg GTUBE DAILY 04/03/17 [History] Furosemide [Lasix] 80 mg GTUBE BID 04/03/17 [History] Hydrophilic Wound Dress Paste 1 appl TP BID 04/03/17 [History] Insulin Regular Human [HumuLIN R] 1 - 5 unit SQ TIDAC 04/03/17 [History] Levothyroxine [Synthroid] 88 mcg GTUBE 0630 04/03/17 [History] Midodrine HCl 10 mg GTUBE TID 04/03/17 [History] Mirtazapine [Remeron] 30 mg GTUBE HS 04/03/17 [History] Ondansetron HCl [Zofran] 4 mg GTUBE Q4H PRN 04/03/17 [History] Polyethylene Glycol [Polyox Wsr-301] 17 gm GTUBE DAILY PRN 04/03/17 [History] Polyvinyl Alcohol [Artificial Tears] 1 drop BOTH EYES Q4H PRN 04/03/17 [History] PredniSONE [Deltasone] 30 mg GTUBE DAILY 04/03/17 [History] Sennosides [Senna] 17.2 mg GTUBE BID 04/03/17 [History] Sodium Chloride for inhalation [Hyper-Jorge] 4 ml IH Q4H PRN 04/03/17 [History] Zinc Oxide/Petrolatum, Yellow [Critic-Aid Skin Paste] 1 appl TP BID 04/03/17 [ History] valACYclovir [Valtrex] 500 mg GTUBE DAILY 04/03/17 [History] Cefepime HCl/Dextrose, Iso-Osm [Cefepime 1 gm Injection] 1 gm IV DAILY #1 mls [Rx] LORazepam [Ativan] 0.5 mg PO Q6H PRN 3 Days #12 tablet 04/16/17 [Rx] Oxycodone HCl 15 mg GTUBE Q4H PRN 3 Days #18 tablet 04/16/17 [Rx] Renal Vitamin [Renal Caps Softgel] 1 mg PO DAILY #30 capsule 04/16/17 [Rx] Allergies/Adverse Reactions: 3 Allergy/AdvReac Type Severity Reaction Status Date / Time Amoxicillin Allergy Hives Verified 03/09/17 14:44 aspirin Allergy Hives Verified 03/09/17 14:44 - Respiratory Orders Smoking Cessation: Smoking cessation has been advised. For more information, call the [place] Tobacco Quit Line at 2-854-WVMP-NOW. - Rehabiliation Orders Rehab Orders: Evaluation for Physical Therapy, Evaluation for Occupational Therapy - Diet Orders Renal (diabetic) CERTIFICATION: I certify that the transfer of the above named patient to an Extended Care Facility is necessary for the continuing treatment of the diagnosis listed. The above information is true and accurate reflection of patient's current condition. Confidential - Redisclosure prohibited without a patient's written consent.
[2017-04-16] MEDS: Budesonide/Formoterol 160/4.5 MDI IH SCH (11:01)
[2017-04-16] MEDS ORDERED: 0.9 % Sodium Chloride 2,000 ML ONE (12:59)
[2017-04-16 16:23] VITALS: BP 132/89
[2017-04-16] MEDS: Cefepime HCl 1,000 MG in Water for inj. (sterile) 10 ML IVP SCH (16:50)
== END 2017-04-16 19:32 | DRG 870 ==
LOC: ICNU → 2NNU 04-04 14:12
PROVIDERS: ADMIT Pediatrics; ATTEND Hospitalist